=== PATIENT | female | born 1990 | race Caucasian/White ===

== ENCOUNTER 2019-12-14 06:51 | Inpatient (IN) | payer OTHER ==
[2019-12-14] VITALS (39 sets, daily range): BP systolic 62–169; BP diastolic 22–142
[~2019-12-14] VITALS: Ht 160 cm; Wt 78.0 kg
[~2019-12-14 06:51] MED LIST: DEXT5TAB15 PO
--- NOTE | 2019-12-14 06:55 | NUR ---
PT BIBRA FROM HOME C/O COUGH AND FEVER X3 DAYS. PER RA, PT FOUND DIAPHORETIC AND LAYING ON BEDROOM FLOOR ON SCENE. PT AFEBRILE ON ARRIVAL. NOTED TACHYCARDIA, MD AWARE. PT AAOX4, APPEARS LETHARGIC. RESPIRATIONS EVEN AND UNLABORED. SKIN COOL AND INTACT. NO ACUTE DISTRESS NOTED AT THIS TIME. PLACED IN GOWN AND ON CONTINUOUS BACK SIZER, WILL CONTINUE TO MONITOR.
--- NOTE | 2019-12-14 07:00 | NUR ---
PT SEEN AND EXAMINED BY .
--- NOTE | 2019-12-14 07:05 | NUR ---
Petey gerard in [facility] - 12/14/19 at 0712 by MAURO PT IV LINE ESTABLISHED, BLOOD DRAWN AND SENT TO LAB.
--- NOTE | 2019-12-14 07:10 | NUR ---
URINE SPECIMEN COLLECTED AND SENT TO LAB.
--- NOTE | 2019-12-14 07:15 | NUR ---
UNABLE TO ESTABLISHED IV LINE, AWARE.
[2019-12-14 07:57] LABS: APPEARANCE,URINE Cloudy (CLEAR); BILIRUBIN,URINE LARGE (NEGATIVE); BLOOD, URINE Negative Ery/uL (NEGATIVE); COLOR,URINE Dark (YELLOW); KETONES,URINE Trace (NEGATIVE); LEUKOCYTE ESTERASE ,URINE Negative (NEGATIVE); NITRITE, URINE Negative (NEGATIVE); PROTEIN,URINE 30 mg/dl (NEGATIVE); UGLUCOSE 100 MG/DL mg/dL (NEGATIVE); UROBILINOGEN,URINE >=8.0 EU/dL (0.2)
[2019-12-14 08:17] LABS: URINE AMORPHOUS URATE Many /HPF (None Seen)
[2019-12-14 08:18] LABS: BACTERIA,URINE Few /HPF (None Seen); SQUAMOUS EPITHELIAL CELL,UR Few /HPF (None Seen)
--- NOTE | 2019-12-14 08:58 | NUR ---
CALLED NURSING SUP FOR ISO M/S BED.
[2019-12-14 09:39] LABS: BASOPHILS # (AUTO) 0.1 /CMM (0.0-0.2); BASOPHILS % (AUTO) 0.4 % (0.0-2.0); EOSINOPHILS % (AUTO) 1.6 % (0.0-6.0); HEMATOCRIT 26 % (33-45); HEMOGLOBIN 8.7 g/dL (11.5-14.8); LYMPHOCYTES # (AUTO) 3.6 /CMM (0.8-4.8); LYMPHOCYTES % (AUTO) 11.1 % (20.0-44.0); MEAN CORPUSCULAR HGB CONC 33 g/dl (31.0-36.0); MEAN CORPUSCULAR VOLUME 82 fL (82-100); MONOCYTES # (AUTO) 2.7 /CMM (0.1-1.30); MONOCYTES % (AUTO) 8.4 % (2.0-12.0); NEUTROPHILS # (AUTO) 25.2 /CMM (1.8-8.9); NEUTROPHILS % (AUTO) 78.5 % (43.0-81.0); RED BLOOD CELL COUNT(AUTO) 3.19 MIL/uL (4.0-5.2)
[2019-12-14 09:47] LABS: PLATELET COUNT (AUTO) 9 /CMM (150-450)
[2019-12-14 09:54] LABS: ALANINE AMINOTRANSFERASE 65 U/L (12-78); ALCOHOL, BLOOD < 3 mg/dL (0-0); ALKALINE PHOSPHATASE 220 U/L (46-116); ASPARTATE AMINOTRANSFERASE 187 U/L (15-37); BILIRUBIN,TOTAL 3.8 mg/dL (0.2-1.0); CALCIUM, SERUM 6.7 mg/dL (8.5-10.1); CARBON DIOXIDE 23 mmol/L (21-32); CREATININE 1.9 mg/dL (0.6-1.3); GLUCOSE 126 mg/dL (74-106); POTASSIUM 4.2 mmol/L (3.5-5.1); TOTAL PROTEIN, SERUM 5.4 g/dL (6.4-8.2); UREA NITROGEN, BLOOD 56 mg/dL (7-18)
[2019-12-14 09:55] LABS: SALICYLATE 0.8 mg/dL (2.8-20.0)
[2019-12-14 09:56] LABS: ACETAMINOPHEN 0 ug/ml (10-30)
[2019-12-14 09:57] LABS: ALBUMIN 1.4 g/dL (3.4-5.0); CHLORIDE 77 mmol/L (98-107); SODIUM SERUM 114 mmol/L (136-145)
[2019-12-14] MEDS ORDERED: VANCOMYCIN HCL 1 GM in IV D5W 260 ML IV ONE (10:00)
[2019-12-14] MEDS ORDERED: IV NS 0.9% 500 ML IV ONE (10:00)
--- NOTE | 2019-12-14 10:22 | NUR ---
covid specimen collectd and sent to lab
--- NOTE | 2019-12-14 10:34 | NUR ---
report given to Cande MUD MIXER for rajesh
[2019-12-14 11:09] LABS: ABG BASE EXCESS -3.6 mmol/L; ABG OXYGEN SATURATION 96.6 % (92.0-98.5); ABG PCO2 20.9 mmHg (35.0-45.0); ABG PH 7.547 (7.350-7.450); ABG PO2 101.6 mmHg (75.0-100.0); AaDO2 159.6 mmHg; COHb 0.1 % (0.5-1.5); MetHb 0.5 % (0.0-1.5); SITE, ABG Right Brachial; VENT MODE, BG NASAL CANNULA
--- NOTE | 2019-12-14 11:27 | NUR ---
wheeled patient via gurney accompanied by RN and emt in no distress, RN at bedside to assume care.
[2019-12-14 11:52] LABS: BAND % (MANUAL) 20 % (0.0-5.0); EOSINOPHILS % (MANUAL) 1 % (0-4); LYMPHOCYTES % (MANUAL) 11 % (16-48); METAMYELOCYTES % 1 % (0-0); MONOCYTES % (MANUAL) 7 % (0-11.0); MYELOCYTES % 2 % (0-0); NEUTROPHILS % (MANUAL) 58 (42-76)
[2019-12-14] MEDS ORDERED: Z GUARD REMEDY 2 OZ OINT TP PRN (12:00)
[2019-12-14] MEDS ORDERED: MAG HYDROX/AL HYDROX/SIMETH 30 ML UDC PO PRN (12:00)
[2019-12-14] MEDS ORDERED: MAGNESIUM HYDROXIDE 30 ML UDC PO PRN (12:00)
[2019-12-14] MEDS ORDERED: PIPERACILLIN /TAZOBACTAM 3.375 G in IV D5W 50 ML IV SCH (12:00)
--- NOTE | 2019-12-14 12:00 | NUR ---
RN INITIAL NOTES 1130 RECEIVED PT FROM ER VIA GURNEY. PT DROWSY. OPEN EYES ON VERBAL AND TACTILE STIMULI. ON VIA NC AT 6LPM. PT TACHYCARDIC ON MONITOR. TEMP 102. PT CONNECTED TO MONITOR. NOTED LOW BP, 80S. STARK INSERTED. NO HEMATURIA NOTED. PT FOR PICC INSERTION. CALLED GENE (FATHER) OVER EPHONE, UPDATED ON PT'S CONDITION 1200 SEEN AND EXAMINED BY DR ARCE. AWARE OF CURRENT LAB VALUES AND CXR RESULT. HGB 8.7, HCT 26, PLATELET 9. NO SIGNS OF ACTIVE BLEEDING NOTED. FOR BLOOD TRANSFUSION 1 UNIT OF PLATELET. ALSO ORDERED NEOSYNEPHRINE FOR BP SUPPORT. WILL TITRATE ACCORDINGLY. ADMISSION ORDERS MADE, NOTED AND CARRIED OUT. WILL CLOSELY MONITOR.
[2019-12-14] MEDS ORDERED: FEE PK DOSING 1 MIN EA MC ONE (12:33)
[2019-12-14] MEDS ORDERED: IV NS 0.9% 1,000 ML IV PRN (13:00)
[2019-12-14] MEDS: PHENYLEPHRINE 50 MG in IV NS 0.9% 245 ML IV PRN ×2 (13:23→23:18)
[2019-12-14] MEDS: MEROPENEM 1 G in IV NS 0.9% 100 ML IV SCH (14:18)
[2019-12-14] MEDS: AZITHROMYCIN 500 MG in IV D5W 250 ML IV SCH (15:22)
[2019-12-14] MEDS: IV Sodium Chloride 3% 500 ML 500 ML IV PRN (16:02)
[2019-12-14] MEDS: ACYCLOVIR IV 500 MG in IV D5W 100 ML IV SCH (16:31)
[2019-12-14 16:47] LABS: OSMOLALITY,URINE 333 mOS/kg (340-1090)
[2019-12-14 16:56] LABS: URINE SODIUM, RANDOM 6 mmol/l (40-220)
--- NOTE | 2019-12-14 17:15 | NUR ---
RN NOTES CALLED DR ARCE REGARDING CRITICAL LAB RESULTS: LACTIC 4.9, PROCALCITONIN 49.62 AND C REACTIVE PROTEIN 2.9. PT ON 3% NS AT 30ML/HR. NO ORDER MADE. WILL CLOSELY MONITOR
--- NOTE | 2019-12-14 17:30 | NUR ---
RN NOTES DR ARCE AND DR NOGUEIRA AWARE OF ECHO RESULT. EF 35%, ENDOCARDITIS AND VEGETATION ON TRICUSPID VALVE. NO ORDER MADE. WILL CLOSELY MONITOR
--- NOTE | 2019-12-14 17:40 | NUR ---
PRELIMINARY RESULTS OF ECHO SHOWED EF 35%~, POSITIVE FOR ENDOCARDITIS AT TRICUSPID VALVE, W/ MODERATE CIRCUMFERENTIAL PERICARDIAL EFF. RN ADVISED OF INITIAL FINDINGS.
[2019-12-14 17:52] LABS: BASOPHILS # (AUTO) 0.1 /CMM (0.0-0.2); BASOPHILS % (AUTO) 0.1 % (0.0-2.0); HEMATOCRIT 23 % (33-45); HEMOGLOBIN 7.5 g/dL (11.5-14.8); LYMPHOCYTES # (AUTO) 4.4 /CMM (0.8-4.8); LYMPHOCYTES % (AUTO) 11.2 % (20.0-44.0); MEAN CORPUSCULAR HGB CONC 33 g/dl (31.0-36.0); MEAN CORPUSCULAR VOLUME 82 fL (82-100); MONOCYTES # (AUTO) 3.4 /CMM (0.1-1.30); MONOCYTES % (AUTO) 8.8 % (2.0-12.0); NEUTROPHILS # (AUTO) 30.3 /CMM (1.8-8.9); NEUTROPHILS % (AUTO) 77.9 % (43.0-81.0); RED BLOOD CELL COUNT(AUTO) 2.79 MIL/uL (4.0-5.2)
[2019-12-14] MEDS ORDERED: ZOSYN IVPB 3.375 G in IV D5W 50ml IV SCH (18:00)
[2019-12-14 18:16] LABS: BILIRUBIN,TOTAL 3.5 mg/dL (0.2-1.0); CREATININE 2.1 mg/dL (0.6-1.3); POTASSIUM 3.7 mmol/L (3.5-5.1); TOTAL PROTEIN, SERUM 4.7 g/dL (6.4-8.2)
[2019-12-14 18:31] LABS: WHITE BLOOD COUNT (AUTO) 38.9 K/uL (4.3-11.0)
[2019-12-14 18:32] LABS: PLATELET COUNT (AUTO) 7 /CMM (150-450)
--- NOTE | 2019-12-14 18:32 | NUR ---
RN CLOSING NOTES PT A/OX1, ON AND OFF CONFUSION. ON 02 VIA NC AT 6LPM. KEPT HOB ELEVATED. ABG DONE. AWAITING FOR RESULT. ON BENNIE, TITRATED ACCORDINGLY. IVF INFUSING. FC IN PLACE. KEPT COMFORTABLE. CALL LIGHT WITHIN REACH. WILL ENDORSE FOR CONTINUITY OF CARE.
[2019-12-14 18:33] LABS: ABG BASE EXCESS -2.6 mmol/L; ABG OXYGEN SATURATION 98.2 % (92.0-98.5); ABG PCO2 21.5 mmHg (35.0-45.0); ABG PH 7.558 (7.350-7.450); ABG PO2 172.3 mmHg (75.0-100.0); AaDO2 16.3 mmHg; COHb 0.3 % (0.5-1.5); MetHb 0.6 % (0.0-1.5); O2Hb 97.3 % (94.0-97.0); SITE, ABG Right Radial; VENT MODE, BG NC 4 L
[2019-12-14 18:41] LABS: BAND % (MANUAL) 17 % (0.0-5.0); LYMPHOCYTES % (MANUAL) 15 % (16-48); MONOCYTES % (MANUAL) 2 % (0-11.0); NEUTROPHILS % (MANUAL) 66 (42-76)
[2019-12-14 19:03] LABS: ALBUMIN 1.1 g/dL (3.4-5.0)
[2019-12-14 19:04] LABS: CALCIUM, SERUM 5.9 mg/dL (8.5-10.1)
--- NOTE | 2019-12-14 19:15 | NUR ---
RN OPENING NOTE RECEIVED PATIENT IN BED LETHARGIC ALTERED. ON 6L OF 02 WITH NO SIGNS OF SOB. PATIENT ON MONITOR SINUS TACHY HR AT 120 AT BEDSIDE MONITOR. FC DRAINING VIA GRAVTIY. PATIENT HAS NAOMI PICC LINE WITH BENNIE RUNNING AT 1MCG/KG/MIN, NSCL AT 30ML/HR AND TKO INFUSING. ISOLATION PRECAUTION ARE APPLIED. SAFETY PRECAUTIONS APPLIED WILL CONTINUE TO MONITOR PATIENT.
[2019-12-14] MEDS ORDERED: HEPARIN SODIUM, PORCINE 5000 UNITS/1 ML VIAL SQ SCH (21:00)
[2019-12-14] MEDS: VANCOMYCIN HCL 0.75 GM in IV D5W 250 ML IV SCH (23:17)
[2019-12-15] VITALS (75 sets, daily range): BP systolic 61–128; BP diastolic 31–89
[2019-12-15] MEDS: MEROPENEM 1 G in IV NS 0.9% 100 ML IV SCH ×2 (02:20→14:47)
[2019-12-15] MEDS ORDERED: PHENYLEPHRINE 10 MG/ML VIAL ONE (04:08)
[2019-12-15 04:23] LABS: BASOPHILS # (AUTO) 0.1 /CMM (0.0-0.2); BASOPHILS % (AUTO) 0.3 % (0.0-2.0); EOSINOPHILS % (AUTO) 2.1 % (0.0-6.0); HEMATOCRIT 22 % (33-45); HEMOGLOBIN 7.3 g/dL (11.5-14.8); LYMPHOCYTES # (AUTO) 5.6 /CMM (0.8-4.8); MEAN CORPUSCULAR HGB CONC 33 g/dl (31.0-36.0); MEAN CORPUSCULAR VOLUME 83 fL (82-100); MONOCYTES # (AUTO) 4.6 /CMM (0.1-1.30); MONOCYTES % (AUTO) 10.5 % (2.0-12.0); NEUTROPHILS # (AUTO) 32.2 /CMM (1.8-8.9); NEUTROPHILS % (AUTO) 74.1 % (43.0-81.0); RED BLOOD CELL COUNT(AUTO) 2.69 MIL/uL (4.0-5.2)
[2019-12-15 04:41] LABS: CHOLESTEROL 60 mg/dL (<200); LDL 23 mg/dL (0-99); THYROID STIMULATING HORMONE 1.671 uIU/mL (0.358-3.74); TRIGLYCERIDES 200 mg/dL (30-150); URIC ACID 11.6 mg/dL (2.6-7.2)
[2019-12-15 04:44] LABS: ALANINE AMINOTRANSFERASE 64 U/L (12-78); ALKALINE PHOSPHATASE 187 U/L (46-116); ASPARTATE AMINOTRANSFERASE 243 U/L (15-37); BILIRUBIN,DIRECT 2.4 mg/dL (0.0-0.2); BILIRUBIN,TOTAL 3.2 mg/dL (0.2-1.0); CALCIUM, SERUM 6.1 mg/dL (8.5-10.1); CARBON DIOXIDE 24 mmol/L (21-32); CHLORIDE 84 mmol/L (98-107); CREATININE 1.7 mg/dL (0.6-1.3); GLUCOSE 133 mg/dL (74-106); MAGNESIUM 2.1 mg/dL (1.8-2.4); PHOSPHORUS 5.1 mg/dL (2.5-4.9); POTASSIUM 3.6 mmol/L (3.5-5.1); TOTAL PROTEIN, SERUM 4.9 g/dL (6.4-8.2); UREA NITROGEN, BLOOD 65 mg/dL (7-18)
[2019-12-15] MEDS: PHENYLEPHRINE 50 MG in IV NS 0.9% 245 ML IV PRN ×2 (04:50→08:31)
[2019-12-15 05:02] LABS: PLATELET COUNT (AUTO) 15 /CMM (150-450); WHITE BLOOD COUNT (AUTO) 43.4 K/uL (4.3-11.0)
[2019-12-15 05:04] LABS: LYMPHOCYTES % (MANUAL) 11 % (16-48); MONOCYTES % (MANUAL) 7 % (0-11.0); NEUTROPHILS % (MANUAL) 82 (42-76)
[2019-12-15 05:05] LABS: ALBUMIN 1.3 g/dL (3.4-5.0); HDL CHOLESTEROL < 10 mg/dL (40-60); SODIUM SERUM 119 mmol/L (136-145)
[2019-12-15] MEDS: ACYCLOVIR IV 500 MG in IV D5W 100 ML IV SCH ×2 (06:02→16:16)
--- NOTE | 2019-12-15 08:00 | NUR ---
HIGHWAY PAINTER HELPER RECEIVED PT IN BED AWAKE CONFUSED AND DROWSY, PT ON 5L NC VS STABLE ON BENNIE SETTINGS NOTICED, PICC LINE PATENT DRESSING INTACT R JUGULAR IV LINE PRESENT, STARK PRESENT JAZZY URINE PRESENT, NOTICED BILATERAL HEAL REDNESS L IS NON BLANCHABLE, NOTICED SACRAL AND MID LOWER BACK DTI NOTICED NON BLANCHABLE REDNESS AND BLACK DECOLORIZATION OFF LOADED ALL EXTREMITIES ON PILLOWS TURN AND [id number] AND KEEP PT CLEAN AND DRY, PT CONSUMED 25% BREAKFAST TEACHINGS DONE SAFETY MEASURES PLACED WILL CONTINUE TO MONITOR. SC DR. NOGUEIRA HOLD LAST BAG OF PATELLATE TRANSFUSION PLATELET IS >10 ORDERS CARRIED WILL CONTINUE TO MONITOR.
[2019-12-15] MEDS: PANTOPRAZOLE 40 MG TABLET.DR PO SCH (08:30)
[2019-12-15] MEDS: IV Sodium Chloride 3% 500 ML 500 ML IV PRN (08:31)
[2019-12-15] MEDS ORDERED: PHENYLEPHRINE 100 MG in IV NS 0.9% 240 ML IV PRN (10:30)
[2019-12-15] MEDS: VANCOMYCIN HCL 0.75 GM in IV D5W 250 ML IV SCH ×2 (11:10→23:38)
[2019-12-15] MEDS: AZITHROMYCIN 500 MG in IV D5W 250 ML IV SCH (14:06)
--- NOTE | 2019-12-15 19:19 | NUR ---
RN CLOSING NOTE: PATIENT REMAINS IN BED. NO ACUTE DISTRESS NOTED. NO SIGNS OF RESPIRATORY DISTRESS NOTED. CONTACT ISOLATION FOR PENDING COVID/MRSA OF [place]. SAFETY MEASURES IMPLEMENTED, BED IN LOWEST POSITION, LOCKED, SIDE RAILS UP, CALL LIGHT WITHIN REACH. ENDORSED TO OLY RAPHAEL FOR CONTINUITY OF CARE.
--- NOTE | 2019-12-15 20:03 | NUR ---
HOME FURNISHINGS SALES REPRESENTATIVE. INITIAL ASSESSMENT. RECEIVED THE PT REST ON THE BED. AWAKE, ALERT. ,LIFT MANAGER SHOWING S TACH. RATE IS 12. OXYGEN 2L VIA NASAL CANNULA. SAT 98%. NO ACUTE DISTRESS NOTED. IV RT UPPER ARM PICC LINE. BENNIE 1MCG/KG/MIN.NS 3%. 30ML/H. HOB ELEVATED. FC PATENT.URINE DRAINING. WILL CONTINUE TO MONITOR VITALS.
[2019-12-15] MEDS: MUPIROCIN OINT 2% 22 GM TUBE SCH (21:29)
[2019-12-15] MEDS ORDERED: IV NS 0.9% 250 ML IV PRN (21:30)
--- NOTE | 2019-12-15 23:40 | NUR ---
GUITAR TEACHER. VANCOMYCIN TROUGH LEVEL IS 8L NOTIFIED PARTS MANAGER PHARMACY. SHE SAID GIVE SAME DOSE.
[2019-12-16] VITALS (91 sets, daily range): BP systolic 81–127; BP diastolic 44–74
[2019-12-16] MEDS: IV Sodium Chloride 3% 500 ML 500 ML IV PRN (00:26)
[2019-12-16] MEDS: MEROPENEM 1 G in IV NS 0.9% 100 ML IV SCH ×3 (02:50→20:47)
[2019-12-16 04:39] LABS: BASOPHILS # (AUTO) 0.1 /CMM (0.0-0.2); BASOPHILS % (AUTO) 0.2 % (0.0-2.0); EOSINOPHILS % (AUTO) 0.2 % (0.0-6.0); LYMPHOCYTES # (AUTO) 3.9 /CMM (0.8-4.8); LYMPHOCYTES % (AUTO) 12.4 % (20.0-44.0); MEAN CORPUSCULAR HGB CONC 33 g/dl (31.0-36.0); MEAN CORPUSCULAR VOLUME 84 fL (82-100); MONOCYTES # (AUTO) 3.2 /CMM (0.1-1.30); MONOCYTES % (AUTO) 10.3 % (2.0-12.0); NEUTROPHILS % (AUTO) 76.9 % (43.0-81.0); RED BLOOD CELL COUNT(AUTO) 2.42 MIL/uL (4.0-5.2)
[2019-12-16 04:44] LABS: CALCIUM, SERUM 6.8 mg/dL (8.5-10.1); CREATININE 0.9 mg/dL (0.6-1.3); POTASSIUM 3.6 mmol/L (3.5-5.1)
[2019-12-16] MEDS: ACYCLOVIR IV 500 MG in IV D5W 100 ML IV SCH (04:48)
--- NOTE | 2019-12-16 05:00 | NUR ---
CLIENT SERVICE ASSOCIATE. DURING SHIFT NO ANY CHANGES, PT SLEPT ON AND OFF. REMAINING SAME OXYGEN ON. SAT 95%, BIOINFORMATICS ENGINEER SHOWING S TACH. TEMPERATURE IS 99. IV RT UPPER ARM PICC LINE IV BENNIE 1.5MCG/KG/MIN. IVF 3%NS 30ML/H. FC PATENT. URINE DRAINING. MYRNA LOWER EXTREMITY OFF LOADED. WILL CONTINUE TO MONITOR VITALS.
[2019-12-16 05:20] LABS: HEMATOCRIT 20 % (33-45)
[2019-12-16 05:22] LABS: HEMOGLOBIN 6.7 g/dL (11.5-14.8); PLATELET COUNT (AUTO) 7 /CMM (150-450); WHITE BLOOD COUNT (AUTO) 31.2 K/uL (4.3-11.0)
[2019-12-16 05:24] LABS: MONOCYTES % (MANUAL) 7 % (0-11.0)
[2019-12-16 05:26] LABS: BAND % (MANUAL) 6 % (0.0-5.0); LYMPHOCYTES % (MANUAL) 12 % (16-48); NEUTROPHILS % (MANUAL) 75 (42-76)
--- NOTE | 2019-12-16 06:05 | NUR ---
BEN DAY ARTIST. LAB CALLED FOR CRITICAL RESULT PLATELETS #7, H&H 6.7.NOTIFIED PRISCILA PETTIT. NEW ORDER RECEIVED.
--- NOTE | 2019-12-16 07:19 | NUR ---
CELL PREPARER. PLATELETS STARTED. REPORT GIVEN TO MAMI ALDRIDGE.
[2019-12-16] MEDS: PANTOPRAZOLE 40 MG TABLET.DR PO SCH (08:56)
[2019-12-16] MEDS: MUPIROCIN OINT 2% 22 GM TUBE SCH ×2 (08:58→21:37)
[2019-12-16] MEDS: VANCOMYCIN 1 GM in IV D5W 250 ML IV SCH ×2 (10:50→19:45)
[2019-12-16] MEDS ORDERED: ACYCLOVIR IV 500 MG in IV D5W 100 ML IV SCH (13:00)
[2019-12-16] MEDS: AZITHROMYCIN 500 MG in IV D5W 250 ML IV SCH (18:43)
--- NOTE | 2019-12-16 19:45 | NUR ---
ICU/STEREOTYPE MOLDER REPORT RECEIVED FROM THE TO DAY NURSE. SEE FLOWSHEET FOR ASSESSMENT, ALONG WITH SKIN ASSESSMENTS AND THE INTERVENTIONS TO THESE. PT IS ALERT TO SELF, SOME SLOW RESPONDS TO QUESTIONS. PT IS ON 5 LITERS VIA N/C WITH SATURATION AT 100%. PT IS 1000 ML FLUID RESTRICTION. PT HAS SACRAL WOUND. PT ALSO HAS SOME EDEMA TO LOWER EXTREMITY SWELLING WITH BRUISING. PT'S CALL LIGHT WITHIN REACH. PT TURNED AND REPOSITIONED FOR COMFORT AND CARE.
[2019-12-16] MEDS: IV D5/ 0.9% NACL 1,000 ML IV PRN (21:30)
--- NOTE | 2019-12-16 22:30 | NUR ---
ICU/HEAVY DUTY PRESS OPERATOR PT WAS GIVEN PM CARE. PT TOLERATED THIS WELL WITH SATURATION AT 100% ON 5 LITERS. PT REFUSED TO BE TURNED AND REPOSITIONED. WILL CONTINUE TO MONITOR THIS PT. NO ACUTE DISTRESS SEEN AT THIS TIME.
[2019-12-16] MEDS ORDERED: PHENYLEPHRINE 10 MG/ML VIAL ONE (23:07)
[2019-12-16] MEDS: PHENYLEPHRINE 100 MG in IV NS 0.9% 240 ML IV PRN (23:27)
[2019-12-17] VITALS (93 sets, daily range): BP systolic 82–160; BP diastolic 33–120
--- NOTE | 2019-12-17 00:10 | NUR ---
ICU/GUM MACHINE FILLER PT APPEARS TO BE RESTING COMFORTABLE, NO ACUTE DISTRESS SEEN AT THIS TIME. WILL CONTINUE TO MONITOR THIS PT.
[2019-12-17] MEDS: VANCOMYCIN 1 GM in IV D5W 250 ML IV SCH ×3 (02:25→17:34)
--- NOTE | 2019-12-17 02:30 | NUR ---
ICU/FELLER MACHINE OPERATOR PT WAS GIVEN AM CARE. PT TOLERATED THIS SO-SO WITH SATURATION AT 95-98%. PT WAS THEN TURNED AND REPOSITIONED FOR COMFORT AND CARE. WILL CONTINUE TO MONITOR THIS PT. NO ACUTE DISTRESS SEEN AT THIS TIME.NOTICED THAT PT'S LOWER EXTREMITY WAS VERY SWOLLEN WITH SOME BRUISING, NOTIFIED CHARGE NURSE. PT SHOULD HAVE LOWER EXTREMITY DOPPLER TO R/O DVT.
--- NOTE | 2019-12-17 04:10 | NUR ---
ICU/BOILER MECHANIC AM LABS WERE DRAWN
[2019-12-17] MEDS: MEROPENEM 1 G in IV NS 0.9% 100 ML IV SCH ×2 (04:20→10:56)
[2019-12-17 05:09] LABS: CALCIUM, SERUM 6.6 mg/dL (8.5-10.1); CREATININE 0.6 mg/dL (0.6-1.3); POTASSIUM 3.4 mmol/L (3.5-5.1)
[2019-12-17 05:18] LABS: BASOPHILS % (AUTO) 0.1 % (0.0-2.0); EOSINOPHILS % (AUTO) 0.2 % (0.0-6.0); LYMPHOCYTES # (AUTO) 4.4 /CMM (0.8-4.8); LYMPHOCYTES % (AUTO) 15.6 % (20.0-44.0); MEAN CORPUSCULAR HGB CONC 33 g/dl (31.0-36.0); MEAN CORPUSCULAR VOLUME 84 fL (82-100); MONOCYTES # (AUTO) 2.2 /CMM (0.1-1.30); MONOCYTES % (AUTO) 7.6 % (2.0-12.0); NEUTROPHILS # (AUTO) 21.6 /CMM (1.8-8.9); NEUTROPHILS % (AUTO) 76.5 % (43.0-81.0); WHITE BLOOD COUNT (AUTO) 28.2 K/uL (4.3-11.0)
[2019-12-17 05:40] LABS: HEMOGLOBIN 6.7 g/dL (11.5-14.8)
[2019-12-17 05:41] LABS: HEMATOCRIT 20 % (33-45); PLATELET COUNT (AUTO) 8 /CMM (150-450)
--- NOTE | 2019-12-17 05:50 | NUR ---
ICU/NURSING HOME ADMISSIONS DIRECTOR CRITICAL LAB VALUES OF H&H 6.7/20 AND PLAT 8. CALLED
[2019-12-17 05:51] LABS: BAND % (MANUAL) 2 % (0.0-5.0); LYMPHOCYTES % (MANUAL) 10 % (16-48); NEUTROPHILS % (MANUAL) 84 (42-76)
[2019-12-17 05:52] LABS: MONOCYTES % (MANUAL) 4 % (0-11.0)
--- NOTE | 2019-12-17 06:30 | NUR ---
ICU/TINNER HELPER CRITICAL LABS WERE ADDRESSED WITH H&H 6.03/28 1 UNIT PRBC AND PLAT 8 WITH 1 PLAT ORDERED.
[2019-12-17] MEDS: PANTOPRAZOLE 40 MG TABLET.DR PO SCH (08:59)
[2019-12-17] MEDS: MUPIROCIN OINT 2% 22 GM TUBE SCH ×2 (09:00→20:18)
[2019-12-17] MEDS: ACETAMINOPHEN 325 MG TABLET PO PRN ×2 (09:16→20:54)
[2019-12-17] MEDS ORDERED: POTASSIUM CHLORIDE 20 MEQ TAB.PRT.SR PO SCH (09:30)
[2019-12-17] MEDS: IV D5/ 0.9% NACL 1,000 ML IV PRN (16:00)
[2019-12-17] MEDS: PHENYLEPHRINE 100 MG in IV NS 0.9% 240 ML IV PRN (17:34)
--- NOTE | 2019-12-17 19:30 | NUR ---
CHIEF RADIATION THERAPIST NOTES RECEIVED PATIENT AOX3. BREATHING NORMAL NO SOB NOTED. RESPIRATION EVEN NON LABORED. NAOMI MIDLINE WITH TRIPLE LUMEN PATENT AND FLUSHING WELL. ON TELE MONITOR READING SR/ST. F/C INTACT DRAINING WELL VIA GRAVITY URINE YELLOW. ABD SOFT AND NON DISTENDED. SKIN WARM AND DRY TO TOUCH. ALL SAFETY MEASURES IN PLACE, SIDE RAILS UPX2. CALL LIGHT WITHIN REACH. WILL CONT TO MONITOR FOR VERONICA.
--- NOTE | 2019-12-17 19:36 | NUR ---
GUN SEALING MACHINE OPERATOR NOTE BLOOD TRANSFUSION WAS DONE PATIENT IS IN STABLE CONDITION, NO S/S OF REACTION NOTED. 200ML INFUSED. ALL SAFETY MEASURES IN PLACE, CALL LIGHT WITHIN REACH. WILL CONT TO MONITOR.
--- NOTE | 2019-12-17 20:54 | NUR ---
BILLING SERVICES MANAGER NOTE PRN TYLENOL WAS GIVEN FOR TEMP-99.0. WILL MONITOR FOR EFFECTIVENESS.
--- NOTE | 2019-12-17 21:54 | NUR ---
CURTAIN FRAMER NOTE TYLENOL WAS EFFECTIVE TEMP NOTED-98.7.
[2019-12-18] VITALS (88 sets, daily range): BP systolic 64–140; BP diastolic 43–81
[2019-12-18] MEDS ORDERED: VANCOMYCIN 1 GM VIAL ONE (01:05)
[2019-12-18] MEDS: VANCOMYCIN 1 GM in IV D5W 250 ML IV SCH ×3 (01:09→17:48)
[2019-12-18] MEDS ORDERED: ALBUTEROL FS 2.5 MG/0.5 ML VIAL.NEB NEB PRN (02:30)
--- NOTE | 2019-12-18 02:30 | NUR ---
HOME ECONOMIST NOTE PATIENT REPORTED SOB AND HISTORY OF ASTHMA. CALLED [facility] TALKED TO SHAY FRANCOIS. NEW ORDER FOR ALBUTEROL 2.5MG VIA NEB Q6H PRN, ORDER INPUT AND NOTED AND CARRIED OUT. RT AWARE.
[2019-12-18 04:53] LABS: BASOPHILS # (AUTO) 0.1 /CMM (0.0-0.2); BASOPHILS % (AUTO) 0.2 % (0.0-2.0); EOSINOPHILS % (AUTO) 0.2 % (0.0-6.0); HEMATOCRIT 24 % (33-45); HEMOGLOBIN 7.7 g/dL (11.5-14.8); LYMPHOCYTES # (AUTO) 3.9 /CMM (0.8-4.8); LYMPHOCYTES % (AUTO) 13.5 % (20.0-44.0); MEAN CORPUSCULAR HGB CONC 33 g/dl (31.0-36.0); MEAN CORPUSCULAR VOLUME 87 fL (82-100); MONOCYTES # (AUTO) 0.7 /CMM (0.1-1.30); MONOCYTES % (AUTO) 2.4 % (2.0-12.0); NEUTROPHILS % (AUTO) 83.7 % (43.0-81.0); RED BLOOD CELL COUNT(AUTO) 2.73 MIL/uL (4.0-5.2); WHITE BLOOD COUNT (AUTO) 28.7 K/uL (4.3-11.0)
[2019-12-18 04:59] LABS: CALCIUM, SERUM 6.7 mg/dL (8.5-10.1); CREATININE 0.6 mg/dL (0.6-1.3); POTASSIUM 3.9 mmol/L (3.5-5.1)
[2019-12-18 05:58] LABS: PLATELET COUNT (AUTO) 8 /CMM (150-450)
[2019-12-18 06:08] LABS: LYMPHOCYTES % (MANUAL) 15 % (16-48); MONOCYTES % (MANUAL) 4 % (0-11.0); NEUTROPHILS % (MANUAL) 81 (42-76)
--- NOTE | 2019-12-18 06:10 | NUR ---
WATCH DIAL STONER NOTE RECEIVED CALL FROM LAB TALKED TO SPENCER REGARDING PLATELET COUNT 8, READ BACK THE RESULTS TO VERIFY.
--- NOTE | 2019-12-18 06:11 | NUR ---
SPRING COILING MACHINE SETTER NOTE PAGE EP[facility] AWAITING FOR CALL BACK.
--- NOTE | 2019-12-18 06:20 | NUR ---
INFANT ROOM TEACHER NOTE RECEIVED CALL TALKED TO PRISCILA REGARDING PLATELET RESULT WHICH WAS 8, NEW ORDER TO GIVE ONE UNIT OF PLATELET READ BACK THE ORDER FOR VERIFICATION, ORDER ENTERED NOTED AND CARRIED OUT. PATIENT AWARE. WILL CONT TO MONITOR.
--- NOTE | 2019-12-18 06:57 | NUR ---
LAST IRONER NOTES PATIENT RESTING COMFORTABLY NO SOB NOTED. BREATHING NORMAL, RESPIRATION EVEN NON LABORED. ALL DUE MEDICATIONS WERE GIVEN TOLERATED WELL . ON TELE MONITOR READING SR/ST. F/C INTACT DARNING WELL VIA GRAVITY URINE JAZZY. ABD SOFT AND NON DISTENDED. SKIN WARM AND DRY TO TOUCH. ALL SAFETY MEASURES IN PLACE, SIDE RAILS UPX2. CALL LIGHT WITHIN REACH. WILL ENDORSE TO DAY SHIFT NURSE FOR VERONICA.
[2019-12-18] MEDS: IV D5/ 0.9% NACL 1,000 ML IV PRN (09:10)
[2019-12-18] MEDS: PHENYLEPHRINE 100 MG in IV NS 0.9% 240 ML IV PRN (09:10)
[2019-12-18] MEDS: PANTOPRAZOLE 40 MG TABLET.DR PO SCH (09:30)
[2019-12-18] MEDS: MUPIROCIN OINT 2% 22 GM TUBE SCH ×2 (09:30→21:17)
--- NOTE | 2019-12-18 09:58 | NUR ---
WOUND CARE CONSULT: PT PRESENTS WITH SACRAL INTACT DEEP TISSUE INJURY WITH DISCOLORATION TO BUTTOCKS, PRESENT ON ADMISSION. RECOMMENDATIONS MADE FOR SKIN PROTECTION AND WOUND CARE. DISCUSSED WITH NURSING STAFF. WILL SEE PRN. MCDANIEL IN AGREEMENT WITH PLAN OF CARE. CURRENT ISHA SCORE 15. Addendum: 12/18/19 at 0959 by FRED THOMPSON WNDNU Amended: Links added.
[2019-12-18] MEDS: ACETAMINOPHEN 325 MG TABLET PO PRN (12:13)
[2019-12-18] MEDS: RIFAMPIN 300 MG CAPSULE PO SCH ×2 (15:26→21:08)
[2019-12-18] MEDS ORDERED: ACETAMINOPHEN 325 MG TABLET PO ONE (18:00)
[2019-12-18] MEDS ORDERED: diphenhydrAMINE HCL 50 MG/ML VIAL IV ONE (18:00)
[2019-12-18] MEDS ORDERED: PANTOPRAZOLE 40 MG VIAL IV SCH (18:00)
--- NOTE | 2019-12-18 20:00 | NUR ---
ICU NURSES NOTES Received pt in bed awake alert and verbally responsive able to make needs known , on st on the the monitor sating 98% no sb no distress noted .v/s stable afebrile on right upper arm piccline tripple lumen intact and patent with reg drip 1.1 mcg /kg /min as ordered ivf of d5ns at 75cc/hr infusing well .with folley cath intact and patent with chaparrita urine color ,all needs attended , pts is npo as ordered pts verbalising understanding , all due meds given as ordered , turned and reposition .will continue to monitor pts.
[2019-12-18] MEDS: FOLIC ACID 1 MG TABLET PO SCH (21:08)
[2019-12-18] MEDS: methylPREDNISolone SOD SUCC 125 MG/2ML VIAL IV SCH (21:08)
--- NOTE | 2019-12-18 22:57 | NUR ---
icu nurses notes ist bag of ffp given as ordered no ase noted.
[2019-12-18] MEDS ORDERED: diphenhydrAMINE HCL 50 MG/ML VIAL ONE (23:11)
[2019-12-19] VITALS (76 sets, daily range): BP systolic 68–134; BP diastolic 38–93
--- NOTE | 2019-12-19 | NUR ---
agricultural economics teacher notes ist bag of ffp completed ,no ase noted. will continue to monitor pts
[2019-12-19] MEDS: IV D5/ 0.9% NACL 1,000 ML IV PRN (01:33)
[2019-12-19] MEDS: VANCOMYCIN 1 GM in IV D5W 250 ML IV SCH ×2 (01:43→09:00)
--- NOTE | 2019-12-19 02:46 | NUR ---
agricultural plow operator notes 2nd bag of ffp given as ordered no ase noted.
--- NOTE | 2019-12-19 03:26 | NUR ---
agricultural labor camp manager notes 2nd bag of ffp completed at 0326 with no ase noted.
[2019-12-19] MEDS ORDERED: PHENYLEPHRINE 10 MG/ML VIAL ONE (04:12)
[2019-12-19] MEDS: PHENYLEPHRINE 100 MG in IV NS 0.9% 240 ML IV PRN (04:26)
--- NOTE | 2019-12-19 05:22 | NUR ---
horticultural manager notes pts remain npo status , no sob no distress noted v/s stable afebrile continue with reg drip at 1.1 as ordered will endorse to rn day shift for continuity of care , pts on f/c intact and patent draining with tea color urine pts for ct chest with out contrast today.
[2019-12-19] MEDS: RIFAMPIN 300 MG CAPSULE PO SCH ×3 (05:41→21:08)
[2019-12-19 06:01] LABS: BASOPHILS % (AUTO) 0.1 % (0.0-2.0); LYMPHOCYTES # (AUTO) 1.7 /CMM (0.8-4.8); LYMPHOCYTES % (AUTO) 7.8 % (20.0-44.0); MEAN CORPUSCULAR HGB CONC 33 g/dl (31.0-36.0); MEAN CORPUSCULAR VOLUME 88 fL (82-100); MONOCYTES # (AUTO) 0.6 /CMM (0.1-1.30); MONOCYTES % (AUTO) 2.5 % (2.0-12.0); NEUTROPHILS # (AUTO) 20.1 /CMM (1.8-8.9); NEUTROPHILS % (AUTO) 89.6 % (43.0-81.0); RED BLOOD CELL COUNT(AUTO) 2.11 MIL/uL (4.0-5.2); WHITE BLOOD COUNT (AUTO) 22.4 K/uL (4.3-11.0)
[2019-12-19 06:02] LABS: CALCIUM, SERUM 7.4 mg/dL (8.5-10.1); CREATININE 0.6 mg/dL (0.6-1.3); POTASSIUM 3.8 mmol/L (3.5-5.1)
[2019-12-19 06:23] LABS: FERRITIN 704 ng/mL (8-388)
[2019-12-19 06:31] LABS: HEMATOCRIT 19 % (33-45); HEMOGLOBIN 6.2 g/dL (11.5-14.8); PLATELET COUNT (AUTO) 17 /CMM (150-450)
--- NOTE | 2019-12-19 07:00 | NUR ---
DIRECTOR TELEVISION NEWS NOTES SPOKE TO DR HARPER RELAYED CRITICAL LABS HGB 6.2 HCT 19 WITH ORDER TO TRANSFUSED 2 UNITS OF PRBC , ENDORSE TO RN DAY SHIFT MAMI FOR NEW ORDER OF 2 UNITS PRBC TO BE GIVEN.
[2019-12-19] MEDS ORDERED: PANTOPRAZOLE 40 MG VIAL IV SCH (09:00)
[2019-12-19] MEDS: HYDROCORTISONE SOD SUCCINATE 100 MG/2 ML VIAL IV SCH ×3 (09:45→18:14)
[2019-12-19] MEDS: methylPREDNISolone SOD SUCC 125 MG/2ML VIAL IV SCH (09:45)
[2019-12-19] MEDS: PANTOPRAZOLE 40 MG TABLET.DR PO SCH (09:46)
[2019-12-19] MEDS: FOLIC ACID 1 MG TABLET PO SCH (09:46)
[2019-12-19] MEDS: MUPIROCIN OINT 2% 22 GM TUBE SCH ×2 (09:46→21:09)
--- NOTE | 2019-12-19 11:22 | NUR ---
PER PHONE CONVERSATION WITH DR. WAITE ONLY GIVE 1 UNIT OF PRBC'S TODAY AND NO PLATELETS.
[2019-12-19 11:27] LABS: BAND % (MANUAL) 4 % (0.0-5.0); LYMPHOCYTES % (MANUAL) 6 % (16-48); NEUTROPHILS % (MANUAL) 86 (42-76)
[2019-12-19 11:28] LABS: METAMYELOCYTES % 3 % (0-0); MONOCYTES % (MANUAL) 0 % (0-11.0); MYELOCYTES % 1 % (0-0)
[2019-12-19 12:12] LABS: IRON, SERUM 23 ug/dl (50-175); TOTAL IRON BINDING CAPACITY 211 ug/dl (250-450)
--- NOTE | 2019-12-19 20:00 | NUR ---
BRAIN SURGEON NOTES Received patient A/OX3.VSS.Respiration even and unlabored.With O2 5L NC SPO2 94%.-100%. Patient taking off O2 on and off.Teaching reinforce to keep O2 on at all times.SR per monitor. On Neosynephrine gtt 0.5 mcg/kg/min and will titrate accordingly to keep MAP >60,or SBP >90 Infusing via NAOMI PICC Line.Site intact.Good po intake.Patient reminded that she is on fluid restriction 1000ml/day.Verbalized understanding.FC to gravity drainage draining orange colored urine.Denies pain.Contact precaution maintained.Continue monitoring.Call light at bedside.
[2019-12-19] MEDS ORDERED: LORAZEPAM 0.5 MG TABLET PO ONE (22:30)
[2019-12-20] VITALS (42 sets, daily range): BP systolic 74–136; BP diastolic 16–86
--- NOTE | 2019-12-20 | NUR ---
Patient awake with loose BM.Perineal hygiene and bed bath rendered.Complete liinens changed.Turned and repositioned.Patient remains non compliant and argumentative using offensive language.Pulling out O2,PULSE OX and nurse monitoring leads off despite multiple reminders/education.Safety precaution observed.Call light at bedside.
[2019-12-20] MEDS: HYDROCORTISONE SOD SUCCINATE 100 MG/2 ML VIAL IV SCH ×3 (02:19→17:13)
--- NOTE | 2019-12-20 04:00 | NUR ---
Patient awake playing with her diaper with BM and throwing wash cloth to the floor with BM.Patient educated with infection control but does not want to listen.Hygienic measures done.Diaper changed. Repositioned to comfort.Tried to apply soft wrist restraints but refused.Remains non compliant to treatment.Charge Nurse ED notified.
[2019-12-20 04:27] LABS: BASOPHILS % (AUTO) 0.1 % (0.0-2.0); HEMATOCRIT 23 % (33-45); HEMOGLOBIN 7.9 g/dL (11.5-14.8); LYMPHOCYTES # (AUTO) 1.9 /CMM (0.8-4.8); LYMPHOCYTES % (AUTO) 6.8 % (20.0-44.0); MEAN CORPUSCULAR HGB CONC 34 g/dl (31.0-36.0); MEAN CORPUSCULAR VOLUME 89 fL (82-100); MONOCYTES # (AUTO) 0.8 /CMM (0.1-1.30); MONOCYTES % (AUTO) 2.8 % (2.0-12.0); NEUTROPHILS # (AUTO) 24.4 /CMM (1.8-8.9); NEUTROPHILS % (AUTO) 90.3 % (43.0-81.0); RED BLOOD CELL COUNT(AUTO) 2.62 MIL/uL (4.0-5.2); WHITE BLOOD COUNT (AUTO) 27.1 K/uL (4.3-11.0)
[2019-12-20 04:36] LABS: CALCIUM, SERUM 7.9 mg/dL (8.5-10.1); CREATININE 0.6 mg/dL (0.6-1.3); POTASSIUM 3.2 mmol/L (3.5-5.1)
[2019-12-20 04:49] LABS: PLATELET COUNT (AUTO) 14 /CMM (150-450)
[2019-12-20] MEDS: RIFAMPIN 300 MG CAPSULE PO SCH ×3 (04:51→20:29)
[2019-12-20 05:31] LABS: BAND % (MANUAL) 6 % (0.0-5.0); LYMPHOCYTES % (MANUAL) 3 % (16-48); MONOCYTES % (MANUAL) 3 % (0-11.0); NEUTROPHILS % (MANUAL) 88 (42-76)
--- NOTE | 2019-12-20 07:30 | NUR ---
NATUROPATHIC ONCOLOGY PROVIDER INITIAL NOTE RECEIVED PATIENT AWAKE ALERT AND ORIENTED, PATIENT STATES SHE FEELS TIRED. DENIES PAIN OR DISCOMFORT. DENIES SOB. PATIENT REMOVED MONITORING DEVICES, EDUCATED PATIENT FOR THE NEED FOR MONITORING. PATIENT VERBALIZED UNDERSTANDING. MONITORING DEVICES PLACED BACK ON. NO DISTRESS NOTED. ON TELE MONITOR SINUS TACH. F/C PATENT AND DRAINING BY GRAVITY. NAOMI PICC LINE PATENT AND INTACT, PRESSORS TURNED OFF. SIDE RAILS UP AND LOCKED. BED KEPT AT LOWEST POSITION. CALL LIGHT KEPT WITHIN EASY REACH. WILL CONTINUE TO MONITOR.
[2019-12-20] MEDS ORDERED: VANCOMYCIN 1 GM in IV D5W 250 ML IV SCH (09:00)
[2019-12-20] MEDS ORDERED: POTASSIUM CL. PREMIX PERIPHER. 50 ML IV SCH (09:30)
--- NOTE | 2019-12-20 09:36 | NUR ---
OPENER TENDER NOTE CLARIFIED WITH DR HOOD POTASSIUM ORDERS, PER DR HOOD DC IV POTASSIUM ORDERS PATIENT CAN SWALLOW
[2019-12-20] MEDS: VANCOMYCIN 1 GM in IV D5W 250 ML IV SCH ×2 (09:52→20:29)
[2019-12-20] MEDS: methylPREDNISolone SOD SUCC 125 MG/2ML VIAL IV SCH (09:52)
[2019-12-20] MEDS: PANTOPRAZOLE 40 MG TABLET.DR PO SCH (09:52)
[2019-12-20] MEDS: FOLIC ACID 1 MG TABLET PO SCH (09:52)
[2019-12-20] MEDS: MUPIROCIN OINT 2% 22 GM TUBE SCH ×2 (09:52→20:50)
[2019-12-20] MEDS: POTASSIUM CHLORIDE 20 MEQ TAB.PRT.SR PO SCH ×3 (09:52→12:43)
--- NOTE | 2019-12-20 11:00 | NUR ---
DURABLE MEDICAL EQUIPMENT REPAIRER NOTE RELAYED TO DR HARPER BLOOD CULTURE RESULTS, NNO
--- NOTE | 2019-12-20 11:25 | NUR ---
FOREIGN LANGUAGE PROFESSOR NOTE REPORT GIVEN TO 3W NURSE NATALIYA. PATIENT TO GO TO ROOM 321-2
--- NOTE | 2019-12-20 11:50 | NUR ---
EXPERIMENTAL DISPLAY BUILDER NOTE TRANSFERRED CARE TO SERGIO ALDRIDGE
--- NOTE | 2019-12-20 12:11 | NUR ---
POSTAL SUPERVISOR CLOSING NOTE PATIENT TRANSFERRED VIA ACLS PROTOCOL, PATIENT IN STABLE CONDITION. TRANSFERRED TO [facility] VIA BED
--- NOTE | 2019-12-20 12:12 | NUR ---
ATTENUATOR NOTE RECEIVED REPORT FROM SCOTTY RN. PATIENT ARRIVED TO UNIT BY BED FROM ICU. PATIENT IN NO ACUTE DISTRESS. NO SOB NOTED. PATIENT BREATHING IS EVEN AND UNLABORED. PATIENT ON CARDIAC MONITORING READING SINUS TACHYCARDIA HR 111. PATIENT STATES NO PAIN AT THIS TIME. PATIENT BED ALARM IS ON. EDUCATED IMPORTANCE OF FLUID RESTRICTION OF 1L. PATIENT PATIENT INSTRUCTED TO USE CALL LIGHT FOR ASSISTANCE. EDUCATED IMPORTANCE FOR PATIENT NOT TO PLAY OR REMOVE PICC LINE. PATIENT VERBALIZED UNDERSTANDING. PATIENT BED IS LOCKED AND IN LOWEST POSITION. CALL LIGHT WITHIN REACH. WILL CONTINUE TO MONITOR.
[2019-12-20] MEDS: SOD FERRIC GLUC 125 MG in IV NS 0.9% 100 ML IV SCH (16:14)
--- NOTE | 2019-12-20 18:34 | NUR ---
SENIOR CLINICAL CONSULTANT CLOSING NOTE PATIENT IN BED RESTING COMFORTABLY. PATIENT IN NO ACUTE DISTRESS. NO SOB NOTED. PATIENT BREATHING IS EVEN AND UNLABORED. PATIENT ON TELE MONITORING READING SINUS TACHYCARDIA HR 107. PATIENT KEPT CLEAN, DRY AND COMFORTABLE THROUGHOUT MY SHIFT. PATIENT NEEDS AND CONCERNS ADDRESSED. PATIENT BED ALARM IS ON. SAFETY PRECAUTIONS IN PLACE. PATIENT TURNED AND REPOSITIONED Q2H. PATIENT BED IS LOCKED AND IN LOWEST POSITION. CALL LIGHT WITHIN REACH. WILL ENDORSE CARE TO PM SHIFT FOR VERONICA.
--- NOTE | 2019-12-20 19:30 | NUR ---
FLOWER ARRANGER OPENING NOTE RECEIVED PATIENT WITH MRSA IN BLOOD ISOLATION. PATIENT IN BED, A/O X3 - 4. TOLERATING ROOM AIR. RESPIRATIONS ARE EVEN AND UNLABORED. NO S/S SOB NOTED. DENIES PAIN AT THIS TIME. EXTERNAL TELE MONITOR READS SINUS TACH HR 112. IN NO APPARENT DISTRESS. IV ACCESS IN NAOMI PICC LINE RUNNING TKO. STARK CATHETER IS PRESENT, DRAINING TO GRAVITY, URINE IS HEMATURIA. MADE PATIENT AWARE OF 1L FLUID RESTRICTION. BED IS LOW AND LOCKED, HOB ELEVATED IN SEMI FOWLERS, SIDE RIALS UP X2, EXTREMITIES OFF LOADED, BED ALARM ON. CALL LIGHT WITHIN REACH. WILL CONTINUE TO MONITOR.
[2019-12-21] VITALS (7 sets, daily range): BP systolic 113–140; BP diastolic 60–86
[2019-12-21] MEDS: HYDROCORTISONE SOD SUCCINATE 100 MG/2 ML VIAL IV SCH ×3 (03:25→17:01)
[2019-12-21] MEDS: HYDROCODONE/APAP 5/325MG 1 EACH TABLET PO PRN (03:26)
[2019-12-21] MEDS: RIFAMPIN 300 MG CAPSULE PO SCH ×3 (05:04→21:44)
--- NOTE | 2019-12-21 05:42 | NUR ---
terminal operations supervisor Closing Patient is A/O x3. On room air, no SOB or distress throughout shift, SPo2 >94%. Tele monitor attached, ST HR 111. Duff draining orange urine to gravity, patient is on Rifampin. Wound care completed, pictures taken. NAOMI PICC TKO, C/D/I. Medicated for pain x1, as patient was restless and not able to sleep. 1L/day fluid restriction, per report 500mL day shift & 300mL restaurant shift supervisor. Bed alarm on. Patient noted at times to displace items off her bed -> onto the floor ; found with what appears to be her own stool (brownish residue on right hand) ; says she can "taste the IV medications in [her] mouth". Call light within reach.
--- NOTE | 2019-12-21 07:30 | NUR ---
FITTING ROOM MAINTENANCE MECHANIC NOTES PATIENT AWAKE IN BED, NO RESPIRATORY DISTRESS, NO C/O PAIN AT THIS TIME. LADIES ATTENDANT ON SINUS TACHY 115. PATIENT'S SKIN WARM TO TOUCH, IV PICC LINE ON THE NAOMI INTACT AND PATENT. PATIENT'S NEEDS ATTENDED, BED ON LOWEST LOCKED POSITION, CALL LIGHT WITHIN REACH. WILL CONTINUE TO MONITOR.
[2019-12-21 08:48] LABS: BASOPHILS % (AUTO) 0.1 % (0.0-2.0); EOSINOPHILS % (AUTO) 0.1 % (0.0-6.0); HEMATOCRIT 28 % (33-45); LYMPHOCYTES # (AUTO) 1.6 /CMM (0.8-4.8); MEAN CORPUSCULAR HGB CONC 33 g/dl (31.0-36.0); MEAN CORPUSCULAR VOLUME 91 fL (82-100); MONOCYTES # (AUTO) 0.7 /CMM (0.1-1.30); MONOCYTES % (AUTO) 2.3 % (2.0-12.0); NEUTROPHILS # (AUTO) 28.7 /CMM (1.8-8.9); NEUTROPHILS % (AUTO) 92.5 % (43.0-81.0); RED BLOOD CELL COUNT(AUTO) 3.03 MIL/uL (4.0-5.2)
[2019-12-21 08:55] LABS: PLATELET COUNT (AUTO) 10 /CMM (150-450); WHITE BLOOD COUNT (AUTO) 31.1 K/uL (4.3-11.0)
[2019-12-21 09:03] LABS: ALBUMIN 1.5 g/dL (3.4-5.0); BILIRUBIN,TOTAL 3.6 mg/dL (0.2-1.0); CREATININE 0.6 mg/dL (0.6-1.3); MAGNESIUM 1.9 mg/dL (1.8-2.4); PHOSPHORUS 3.2 mg/dL (2.5-4.9); POTASSIUM 3.7 mmol/L (3.5-5.1); TOTAL PROTEIN, SERUM 5.4 g/dL (6.4-8.2)
[2019-12-21] MEDS: VANCOMYCIN 1 GM in IV D5W 250 ML IV SCH ×2 (09:06→23:16)
--- NOTE | 2019-12-21 09:17 | NUR ---
TECHNICAL COMMUNICATOR NOTES CRITICAL LAB VALUE REPORTED BY LULU WBC 31.1 AND PLT 10, NOTIFIED MD OF CRITICAL LAB VALUES, AWAITING FOR ORDERS.
[2019-12-21] MEDS: MUPIROCIN OINT 2% 22 GM TUBE SCH ×2 (09:24→21:47)
[2019-12-21] MEDS: FOLIC ACID 1 MG TABLET PO SCH (09:24)
[2019-12-21] MEDS: PANTOPRAZOLE 40 MG TABLET.DR PO SCH (09:24)
[2019-12-21 09:38] LABS: BAND % (MANUAL) 9 % (0.0-5.0); LYMPHOCYTES % (MANUAL) 7 % (16-48); MONOCYTES % (MANUAL) 3 % (0-11.0); NEUTROPHILS % (MANUAL) 81 (42-76)
[2019-12-21] MEDS ORDERED: HYDROCORTISONE SOD SUCCINATE 100 MG/2 ML VIAL IV SCH (10:00)
[2019-12-21] MEDS: SOD FERRIC GLUC 125 MG in IV NS 0.9% 100 ML IV SCH (14:00)
[2019-12-21] MEDS ORDERED: ACETAMINOPHEN 325 MG TABLET PO ONE (16:00)
[2019-12-21] MEDS ORDERED: diphenhydrAMINE HCL 50 MG/ML VIAL IV ONE (16:00)
--- NOTE | 2019-12-21 18:16 | NUR ---
CRITICAL CARE SPECIALIST NOTES BLOOD CULTURE RESULT OF GRAM POSITIVE COCCI CLUSTERS REPORTED BY LAURA HAMPTON MD.
--- NOTE | 2019-12-21 19:15 | NUR ---
PUBLIC HEALTH REPRESENTATIVE NOTES PATIENT AWAKE IN BED, NO RESPIRATORY DISTRESS, NO C/O PAIN AT THIS TIME. TECHNICAL COORDINATOR ON SINUS TACHY 100. SKIN WARM TO TOUCH, IV PICC LINE INTACT AND PATENT. PATIENT'S NEEDS ATTENDED, BED ON LOWEST LOCKED POSITION, CALL LIGHT WITHIN REACH. WILL ENDORSE TO ONCOMING NURSE.
--- NOTE | 2019-12-21 19:20 | NUR ---
GRANULATOR TENDER NOTES ONCOMING NURSE REPORTED THAT PLATELETS WON'T BE AVAILABLE UNTIL 0900 IN THE MORNING TOMORROW. INFORMED OLY ELIZABETH TO NOTIFY DR. WAITE REGARDING THE ORDER FOR PLATELETS THAT IT WON'T BE AVAILABLE.
--- NOTE | 2019-12-21 19:25 | NUR ---
RN OPENING NOTES RECEIVED PATIENT AWAKE IN BED. A/OX3. NO SIGNS OF DISTRESS OR DISCOMFORT. BREATHING EVEN AND UNLABORED. ON TELE MONITOR WITH ST 103 NOTED. HAS NAOMI PICC PATENT AND INTACT. HAS F/C INTACT DRAINING CLEAR JAZZY FLUID. BED IN LOW LOCKED POSITION WITH SIDE RAILS X2. CALL LIGHT WITHIN REACH. WILL CONTINUE TO MONITOR.
--- NOTE | 2019-12-21 21:10 | NUR ---
RN NOTES INFORMED DR. WAITE, PER LAB PATIENTS 1 UNIT OF PLATELETS WILL NOT BE RELEASED BY [facility] UNTIL 9AM TOMORROW MORNING. NO NEW ORDERS GIVEN. WILL CONTINUE TO MONITOR.
[2019-12-22] VITALS (11 sets, daily range): BP systolic 54–122; BP diastolic 55–78
--- NOTE | 2019-12-22 01:05 | NUR ---
RN NOTES NOTIFIED MD OF PATIENT ELEVATED HR OF 140'S. NO NEW ORDERS GIVEN. WILL CONTINUE TO MONITOR.
[2019-12-22] MEDS: RIFAMPIN 300 MG CAPSULE PO SCH ×3 (05:38→20:29)
[2019-12-22 06:56] LABS: BASOPHILS # (AUTO) 0.1 /CMM (0.0-0.2); BASOPHILS % (AUTO) 0.2 % (0.0-2.0); EOSINOPHILS % (AUTO) 0.1 % (0.0-6.0); HEMATOCRIT 26 % (33-45); HEMOGLOBIN 8.3 g/dL (11.5-14.8); LYMPHOCYTES # (AUTO) 2.3 /CMM (0.8-4.8); LYMPHOCYTES % (AUTO) 6.2 % (20.0-44.0); MEAN CORPUSCULAR HGB CONC 32 g/dl (31.0-36.0); MEAN CORPUSCULAR VOLUME 93 fL (82-100); MONOCYTES # (AUTO) 0.7 /CMM (0.1-1.30); MONOCYTES % (AUTO) 1.9 % (2.0-12.0); NEUTROPHILS # (AUTO) 34.6 /CMM (1.8-8.9); NEUTROPHILS % (AUTO) 91.6 % (43.0-81.0); RED BLOOD CELL COUNT(AUTO) 2.77 MIL/uL (4.0-5.2)
--- NOTE | 2019-12-22 07:00 | NUR ---
RN CLOSING NOTES PATIENT AWAKE IN BED. A/OX3. NO SIGNS OF DISTRESS OR DISCOMFORT. BREATHING EVEN AND UNLABORED. ON TELE MONITOR WITH ST 140 NOTED. HAS NAOMI PICC PATENT AND INTACT. HAS F/C INTACT DRAINING CLEAR JAZZY FLUID. ALL NEEDS MET. NO SIGNIFICANT CHANGES THROUGH THE NIGHT. BED IN LOW LOCKED POSITION WITH SIDE RAILS X2. CALL LIGHT WITHIN REACH. WILL ENDORSE TO AM SHIFT FOR VERONICA.
[2019-12-22 07:04] LABS: WHITE BLOOD COUNT (AUTO) 37.8 K/uL (4.3-11.0)
[2019-12-22 07:05] LABS: PLATELET COUNT (AUTO) 9 /CMM (150-450)
--- NOTE | 2019-12-22 07:15 | NUR ---
RN OPENING NOTES RECEIVED PT AWAKE IN BED AT THIS TIME WITH HOB ELEVATED. A/OX3. PT APPEARS COMFORTABLE WITH NOS/S OFANY ACUTE DISTRESS. BREATHING EVEN AND UNLABORED. PT ON TELEMETRY WILDLIFE ENFORCEMENT MAJOR WITH ST 144 NOTED. NAOMI PICC LINE PATENT AND INTACT. STARK CATHETER INTACT DRAINING CLEAR JAZZY URINE OUTPUT. PT DENIES PAIN AT THIS TIME. BED IN LOWEST LOCKED POSITION, SIDE RAILS X2. CALL LIGHT WITHIN REACH. WILL CONTINUE TO MONITOR.
[2019-12-22 07:25] LABS: CALCIUM, SERUM 7.3 mg/dL (8.5-10.1); CREATININE 0.7 mg/dL (0.6-1.3); POTASSIUM 3.4 mmol/L (3.5-5.1)
[2019-12-22] MEDS: PANTOPRAZOLE 40 MG TABLET.DR PO SCH (09:13)
[2019-12-22] MEDS: FOLIC ACID 1 MG TABLET PO SCH (09:13)
[2019-12-22] MEDS: VANCOMYCIN 1 GM in IV D5W 250 ML IV SCH (09:15)
[2019-12-22] MEDS: HYDROCORTISONE SOD SUCCINATE 100 MG/2 ML VIAL IV SCH (09:15)
--- NOTE | 2019-12-22 09:15 | NUR ---
PT PULLED OUT HER NAOMI PICC LINE SAYING SHE DOESN'T WANT IT ANYMORE.EXPLAINED THE RISKS AND BENEFITS OF HER PICC LINE SPECIALLY FOR HER PENDING PLATELET TRANSFUSION DUE TO LOW PLATELETS.PT KEEPS SAYING SORRY.NOTIFIED FIELD SALES REPRESENTATIVE AND RN BRIDGE MAINTAINER AND WILL PUT MIDLINE ON HER.PT IS A HARDSTICK. VANCO IV ON HOLD DUE TO NO IV ACCESS AT THIS TIME.AWAITING FOR MIDLINE NURSE.
--- NOTE | 2019-12-22 09:16 | NUR ---
CARDIOGRAPH OPERATOR NOTES PREPARED HYDROCORTISONE SOD SUCCINATE 100MG/2ML IV IN ORDER TO ADMINISTER 50MG/1ML IV PER ORDER, PT PULLED OUT PICC LINE PRIOR TO ADMINISTRATION. MEDICATION WAS NOT ADMINISTERED.
[2019-12-22] MEDS: MUPIROCIN OINT 2% 22 GM TUBE SCH ×2 (09:21→20:33)
--- NOTE | 2019-12-22 09:30 | NUR ---
NOTIFIED ANATOLIY,PHARMACIST WELL FOR THE PENDING VANCO IV INFUSION.WILL NOTIFY PHARMACY SOON THE MIDLINE IS INSERTED.
[2019-12-22 09:58] LABS: BAND % (MANUAL) 9 % (0.0-5.0); LYMPHOCYTES % (MANUAL) 5 % (16-48); METAMYELOCYTES % 1 % (0-0); MONOCYTES % (MANUAL) 2 % (0-11.0); NEUTROPHILS % (MANUAL) 83 (42-76)
--- NOTE | 2019-12-22 11:29 | NUR ---
SW Note SW met with the pt at bedside. Pt appeared to be oriented x4 (time, place, self and situation). Pt appeared to be disorganized and confused. Pt appeared to have an altered mental state. Pt was able to maintain appropriate eye contact and tone of voice throughout the assessment. Pt stated that she has an infection and that was why she was admitted to the hospital. Pt appears to be noncompliant with care and took out her PICC line. Pt states that she lives with her parents in their home. Pt has a history of abusing opiates, benzodiazepines and cannabis. SW provided the pt with substance abuse referrals and pt is to follow up.
[2019-12-22] MEDS ORDERED: POTASSIUM CHLORIDE 20 MEQ TAB.PRT.SR PO SCH (11:30)
--- NOTE | 2019-12-22 13:00 | NUR ---
WRINGER AND SETTER NOTES PT PULLED OUT PICC LINE AT ABOUT 0915 NURSE WAS PREPARING MEDS, CALLED PT's MOTHER (RADHA WICK) AT 1300 AND OBTAINED CONSENT FOR PICC LINE RE-INSERTION AND MYRNA SOFT WRIST RESTRAINTS PER CHATO WILSTEIN N.P ORDER. PT'S MOTHER (RADHA WICK) CONSENTED. CONSENT RECEIVED AND WITNESSED BY OLY KING. Addendum: 12/22/19 at 1659 by RADHA ANNE RN WRINGER AND SETTER NOTES PT PULLED OUT PICC LINE AT ABOUT 0915 NURSE WAS PREPARING MEDS, CALLED PT's MOTHER (RADHA WICK) AT 1300 AND OBTAINED CONSENT FOR PICC LINE RE-INSERTION, PLATELET AND BILATERAL SOFT WRIST RESTRAINTS PER CHATO WILSTEIN N.P ORDER. PT'S MOTHER (RADHA WICK) CONSENTED. CONSENT RECEIVED AND WITNESSED BY OLY KING.
--- NOTE | 2019-12-22 14:00 | NUR ---
PICC LINE RN ARRIVED AND INSERTED PICC LINE ON THE PT.NOTIFIED PHARMACY,SPOKE TO ANATOLIY,PHARMACIST WHO WILL ADJUST THE VANCO IV ADMINISTRATION AT 1800. PLATELET IS ALREADY AVAILABLE PER BLOOD BANK.WILL ADMINISTER SOON THE PICC LINE IS INSERTED.
--- NOTE | 2019-12-22 15:05 | NUR ---
AWAITING FOR CXR TO BE DONE TO CONFIRM PLACEMENT IN [place]
[2019-12-22 15:58] LABS: URINE SODIUM, RANDOM 45 mmol/l (40-220)
[2019-12-22 16:25] LABS: OSMOLALITY,URINE 270 mOS/kg (340-1090)
--- NOTE | 2019-12-22 16:40 | NUR ---
STARTED TRANSFUSING ONE BAG OF PLATELET 582ML WITH STABLE V/S.PT AFEBRILE. PT DENIES ANY DISTRESS. PT LOOKING FORWARD TO HAVE THE PLATELET TO BE TRANSFUSED. INSTRUCTED PT NOT TO PULL OUT HER NEW [place] PICC LINE EXPLAINING ITS IMPORTANCE/BENEFITS. PT VERBALIZED UNDERSTANDING OF INSTRUCTIONS GIVEN AND AGREED TO COMPLY. WILL MONITOR FOR ANY ADVERSE REACTIONS.
--- NOTE | 2019-12-22 16:55 | NUR ---
PT ON PLATELET TRANSFUSION. V/S RECHECKED AFTER 15MINS AND STABLE. NO ADVERSE REACTIONS NOTED. WILL CONTINUE TO MONITOR
--- NOTE | 2019-12-22 17:15 | NUR ---
VANCOMYCIN 1GM IN IV D5W 250ML SCHEDULED FOR 0900AM WAS PREPARED BUT NOT ADMINISTERED DUE TO PT PULLING OUT PICC LINE. CALLED [employer] TECHNICIAN JOHN AND JOHN REQUESTED THAT VANCO BE WASTED BECAUSE IT WAS NOT REFRIGERATED
--- NOTE | 2019-12-22 17:25 | NUR ---
PT ON PLATELET TRANSFUSION. V/S RECHECKED AFTER 30MINS AND STABLE. NO ADVERSE REACTIONS NOTED. WILL CONTINUE TO MONITOR
--- NOTE | 2019-12-22 17:38 | NUR ---
SPOKE TO PHARMACIST,JOHN AND MADE AWARE THAT THE PT IS STILL ON ONGOING PLATELET TRANSFUSION INFUSING. FERRLECIT IS STILL NOT READY SO WE WILL ADMINISTER VANCO IV POST PLATELET TRANSFUSION. WILL CALL PHARMACY TO PREPARE FERRLECIT IV AFTER .PT IS EATING DINNER ON HER OWN AT THIS TIME AND WAS IN A GOOD MOOD. PT HAS REFUSED BREAKFAST AND LUNCH INSPITE OF OFFERING SNACKS AND OTHER PREFERRED FOOD SAYING SHE DOESN'T FEEL GOOD. ENCOURAGED TO EAT AND DRINK FLUIDS PER RESTRICTION ORDER -PT IS ON 1 LITER FLUID RESTRICTION. WILL CONTINUE TO MONITOR.
--- NOTE | 2019-12-22 18:17 | NUR ---
PT ON PLATELET TRANSFUSION. V/S RECHECKED AT 1816 AND STABLE. NO ADVERSE REACTIONS NOTED. WILL CONTINUE TO MONITOR
--- NOTE | 2019-12-22 18:29 | NUR ---
COMPLETED PLATELET TRANSFUSION. V/S ARE STABLE. NO ADVERSE REACTIONS NOTED. PT DENIES ANY DISCOMFORT AT THIS TIME. WILL CONTINUE TO MONITOR
[2019-12-22] MEDS: VANCOMYCIN 0.75 GM in IV D5W 250 ML IV SCH (18:33)
--- NOTE | 2019-12-22 19:06 | NUR ---
RN CLOSING NOTES PT IN BED AWAKE AT THIS TIME. AOX3 STARTED. PT APPEARS COMFORTABLE, BREATHING EVEN AND UNLABORED. MARGARITO DOUBLE LUMEN PICC LINE, INTACT, PATENT AND INFUSING WELL VANCOMYCIN 0.75GM IN IV D5W 250ML @250ML/HR AT THIS TIME. PLATELET 582ML TRANSFUSED. NO ADVERSE REACTIONS NOTED. PT IS STABLE AND AFEBRILE. PT DENIES PAIN AND ANY DISTRESS. ALL CARE PROVIDED ANTICIPATED. STARK CATHETER INTACT, DRAINING TO GRAVITY JAZZY YELLOW URINE. BED IN LOWEST LOCKED POSITION, SIDE RAILS UP X 2, CALL LIGHT WITHIN REACH. WILL ENDORSE TO MOTION PICTURE SET UP WORKER NURSE FOR VERONICA.
--- NOTE | 2019-12-22 19:15 | NUR ---
RN OPENING NOTES RECEIVED PATIENT AWAKE IN BED. A/OX2-3. NO SIGNS OF DISTRESS OR DISCOMFORT. BREATHING EVEN AND UNLABORED. HAS MARGARITO PICC LINE WITH VAN CO INFUSING, PATENT AND INTACT. HAS F.C INTACT, DRAINING CLEAR JAZZY FLUID. BED IN LOW LOCKED POSITION WITH SIDE RAILS X3. CALL LIGHT WITHIN REACH. WILL CONTINUE TO MONITOR.
[2019-12-22] MEDS: HYDROCODONE/APAP 5/325MG 1 EACH TABLET PO PRN (20:29)
[2019-12-22] MEDS: SOD FERRIC GLUC 125 MG in IV NS 0.9% 100 ML IV SCH (20:45)
[2019-12-23] VITALS (9 sets, daily range): BP systolic 92–119; BP diastolic 33–71
[2019-12-23] MEDS: VANCOMYCIN 0.75 GM in IV D5W 250 ML IV SCH ×3 (00:49→18:01)
[2019-12-23] MEDS: RIFAMPIN 300 MG CAPSULE PO SCH ×3 (04:13→20:55)
--- NOTE | 2019-12-23 05:00 | NUR ---
RN NOTES PATIENT COMPLAIN SHE FEELS LIKE SHE CANT REALLY BREATH. NO PHYSICAL SIGNS OF SOB OF DISTRESS. BP 105/50 HR 140 O2 96% ON RA. PATIENT WAS LYING FLAT IN THE BED. ADVISED PATIENT TO KEEP HEAD OF BED ELEVATED. APPLIED NC ON 2LPM AT PATIENT REQUEST. WILL CONTINUE TO MONITOR.
[2019-12-23 06:37] LABS: BASOPHILS # (AUTO) 0.1 /CMM (0.0-0.2); BASOPHILS % (AUTO) 0.3 % (0.0-2.0); EOSINOPHILS % (AUTO) 0.1 % (0.0-6.0); LYMPHOCYTES # (AUTO) 1.6 /CMM (0.8-4.8); LYMPHOCYTES % (AUTO) 4.9 % (20.0-44.0); MEAN CORPUSCULAR HGB CONC 32 g/dl (31.0-36.0); MEAN CORPUSCULAR VOLUME 94 fL (82-100); MONOCYTES # (AUTO) 0.7 /CMM (0.1-1.30); MONOCYTES % (AUTO) 2.1 % (2.0-12.0); NEUTROPHILS # (AUTO) 30.5 /CMM (1.8-8.9); NEUTROPHILS % (AUTO) 92.6 % (43.0-81.0); RED BLOOD CELL COUNT(AUTO) 2.08 MIL/uL (4.0-5.2)
[2019-12-23 06:48] LABS: HEMATOCRIT 19 % (33-45); HEMOGLOBIN 6.2 g/dL (11.5-14.8); WHITE BLOOD COUNT (AUTO) 32.9 K/uL (4.3-11.0)
[2019-12-23 06:49] LABS: PLATELET COUNT (AUTO) 15 /CMM (150-450)
[2019-12-23 06:50] LABS: CALCIUM, SERUM 7.2 mg/dL (8.5-10.1); CREATININE 0.6 mg/dL (0.6-1.3); MAGNESIUM 1.6 mg/dL (1.8-2.4); PHOSPHORUS 3.7 mg/dL (2.5-4.9); POTASSIUM 3.3 mmol/L (3.5-5.1)
--- NOTE | 2019-12-23 07:08 | NUR ---
RN CLOSING NOTES PATIENT AWAKE IN BED. A/OX2-3. NO SIGNS OF DISTRESS OR DISCOMFORT. BREATHING EVEN AND UNLABORED. ON 2LPM O2 VIA NC FOR PATIENT COMFORT. HAS MARGARITO PICC LINE, PATENT AND INTACT. HAS F/C INTACT, DRAINING CLEAR JAZZY FLUID. ALL NEEDS MET. NO SIGNIFICANT CHANGES THROUGH THE NIGHT. BED IN LOW LOCKED POSITION WITH SIDE RAILS X3. CALL LIGHT WITHIN REACH. RECVD CRITICAL LAB VALUE FROM LAB AT 0647 WBC 32.9, HGB 6.2, HCT 19.4 AND PLT 15. WILL ENDORSE TO AM SHIFT FOR VERONICA.
--- NOTE | 2019-12-23 08:00 | NUR ---
rn notes received patient in the room 29 y/old female ondx of sepsis, isolation of MRSA of nares, and blood, patient a/o x3,refused pain v/s taken hr 135, bp-119/62, t-99.9, r-20, o2-100 on o2-2l nc. patient has no acute respiratory distress. Per date night sitter report get critical labs hgl-, 6.2, htc-19, plt 15, md aware of and will prescribe. patient has edema on BLE, bruises on right arm because of yesterday removed self picc line. Duff catheter draining tea color output, patient feeling weakness, assist turn and reposition q 2 hr. call light within to reach, continued monitoring.
[2019-12-23 08:24] LABS: BAND % (MANUAL) 7 % (0.0-5.0); LYMPHOCYTES % (MANUAL) 6 % (16-48); MONOCYTES % (MANUAL) 3 % (0-11.0); NEUTROPHILS % (MANUAL) 84 (42-76)
[2019-12-23] MEDS: POTASSIUM CHLORIDE 20 MEQ TAB.PRT.SR PO SCH ×3 (09:22→12:46)
[2019-12-23] MEDS: Magnesium 1GM/D5W 100ML PREMIX 100 ML IV SCH ×2 (09:23→10:56)
[2019-12-23] MEDS: ACETAMINOPHEN 325 MG TABLET PO PRN (09:26)
[2019-12-23] MEDS: HYDROCORTISONE SOD SUCCINATE 100 MG/2 ML VIAL IV SCH (09:26)
--- NOTE | 2019-12-23 09:26 | NUR ---
RN NOTES ADMINISTERED TYLENOL FORT-99.9, AND COOLING MEASURE. ADMINISTERED SCHEDULED MEDICATION, V/S STABLE, PATIENT A/O X3. CALL LIGHT WITHIN TO REACH.
[2019-12-23] MEDS: PANTOPRAZOLE 40 MG TABLET.DR PO SCH (09:27)
[2019-12-23] MEDS: FOLIC ACID 1 MG TABLET PO SCH (09:27)
[2019-12-23] MEDS: MUPIROCIN OINT 2% 22 GM TUBE SCH ×2 (09:35→21:07)
[2019-12-23] MEDS: ONDANSETRON HCL/PF 4 MG/2 ML VIAL IVP PRN ×2 (11:08→20:55)
[2019-12-23] MEDS: HYDROCODONE/APAP 5/325MG 1 EACH TABLET PO PRN (11:09)
--- NOTE | 2019-12-23 11:09 | NUR ---
RN NOTES ADMINISTERED NARCO 5/325 MG PO, PRN FOR GENERALIZED PAIN 02/16, AND ZOFRAN 4 MG/ML IV PUSH FOR NAUSEA. V/S TAKEN T-99.1,P-127, 111/64. CONTINUED MONITORING.
--- NOTE | 2019-12-23 11:54 | NUR ---
RN NOTES SEEN PATIENT BY HOSPITALIST AND GET VERBAL ORDER RBC 2 UNITS, ORDER TAKEN AND CARRIED OUT.
[2019-12-23] MEDS ORDERED: ALBUTEROL FS 2.5 MG/0.5 ML VIAL.NEB NEB PRN (14:30)
--- NOTE | 2019-12-23 14:34 | NUR ---
rn notes Started blood transfusion at this time 306 ml RH negative on left PICC line 50 ml/hr intact patent, v/s taken bp 107/51, r-20, t-98.8. p-121, o2-93 room air. patient refused pain, no SOB noted at this time, a/o x3, stable lying in the bed. call light within to reach, continued monitoring.
--- NOTE | 2019-12-23 15:00 | NUR ---
rn notes patient stable refused pain, v/s taken bp-97.53, p-115, r-20, o2-94 room air, t-98.3. patient stable , no sob, increase blood infusion to 75 ml/hr, patient tolerating well, continued monitoring.
--- NOTE | 2019-12-23 15:30 | NUR ---
RN NOTES V/S TAKEN BP-92/42, P-117, R-19, T-97.9 PATIENT HAS NO S/S OF BLOOD REACTION, REFUSED PAIN, STABLE , INCREASE 125 ML/HR BLOOD INFUSION , CONTINUED MONITORING.
--- NOTE | 2019-12-23 16:50 | NUR ---
RN NOTES PATIENT STABLE V/S TAKEN BP 108/62, P-115, R-19, O2-96 ROOM AIR, T-97.7. PATIENT REFUSED PAIN, FREE FROM S/S, INFUSING 125 ML/HR ON LEFT PICC LINE INTACT, CONTINUED MONITORING.
--- NOTE | 2019-12-23 17:45 | NUR ---
rn notes FINISHED BLOOD TRANSFUSION AT THIS TIME PATIENT STABLE REFUSED PAIN, NO SOB, FREE FROM S/S, V/S TAKEN BP-99/33, P-119, R-19, T-98.5, O2-96 ROOM AIR. CALL LIGHT WITHIN TO REACH. CONTINUED MONITORING.
--- NOTE | 2019-12-23 18:30 | NUR ---
RN NOTES PATIENT STABLE NO ACUTE RESPIRATORY DISTRESS, ON O2-2L ON AND OFF. REFUSED PAIN , V/S STABLE. INFUSING VANCOMYCIN 250 ML/HR ON LEFT PICC LINE INTACT,PATENT. CALL LIGHT WITHIN TO REACH, ASSIST TURN AND REPOSTION Q 2 HR. ELEVATED BLE USING PILLOWS, ENDORSED ONCOMING NURSE FOLLOW PLAN OF CARE.
[2019-12-23] MEDS: SOD FERRIC GLUC 125 MG in IV NS 0.9% 100 ML IV SCH (18:43)
--- NOTE | 2019-12-23 19:10 | NUR ---
MS RN OPENING NOTES RECEIVED PATIENT RESTING COMFORTABLY IN BED. A/OX3. ABLE TO VERBALIZE NEEDS. ON 2L NC. NO S/S OF ACUTE RESPIRATORY DISTRESS AND NO C/O PAIN AT THIS TIME. CONTACT PRECAUTIONS IN PLACE FOR MRSA. FLUID RESTRICTIONS IN PLACE, 1000ML/DAY. STARK CATH PRESENT, DRAINING WELL, 200 ML OF JAZZY COLORED URINE PRESENT. PICC LINE PRESENT ON LEFT UPPER ARM, INTACT & PATENT. SAFETY MEASURES IN PLACE. BED LOCKED, ALARM ON, SIDE RAILS X2, CALL LIGHT WITHIN REACH. WILL CONTINUE TO MONITOR.
--- NOTE | 2019-12-23 20:09 | NUR ---
MS RN NOTES RECEIVED PHONE CALL FROM PHARMACY. PER SPACE SCHEDULERJOHN JOHNSON, DISREGARD VANCO TROUGH VALUE AND CONTINUE WITH SCHEDULED VANCO AT 0100. VANCO TROUGH RESCHEDULED FROM 0800 TOMORROW.
[2019-12-23] MEDS: IPRATROPIUM NEB FS 0.5 MG/2.5 ML AMPUL.NEB NEB SCH (20:15)
[2019-12-23] MEDS: ALBUTEROL FS 2.5 MG/0.5 ML VIAL.NEB NEB SCH (20:15)
[2019-12-24] VITALS (8 sets, daily range): BP systolic 104–118; BP diastolic 54–91
--- NOTE | 2019-12-24 00:14 | NUR ---
MS RN NOTES 1 PACK OF LRBC BLOOD TRANSFUSION STARTED. BLOOD PRODUCT VERIFIED WITH CO-RN, JABIER. VITAL SIGNS- BP: 110/57 HR: 122 RR: 18 SPO2: 98 TEMP: 98.9. WILL MONITOR PATIENT AT THE BEDSIDE FOR THE NEXT 15 MINUTES FOR ANY REACTION.
--- NOTE | 2019-12-24 00:29 | NUR ---
MS RN NOTES PATIENT TOLERATING BLOOD TRANSFUSION WELL. INCREASED INFUSION RATE TO 60ML TO 90ML. PATIENT DENIES ANY SOB OR PAIN. VITAL SIGNS - BP: 118/65 HR: 122 RR: 18 TEMP: 98.6. WILL CONTINUE TO MONITOR.
--- NOTE | 2019-12-24 00:59 | NUR ---
MS RN NOTES PATIENT TOLERATING BLOOD TRANSFUSIONS WELL. NO S/S OF TRANSFUSION REACTION. INCREASED RATE TO 120ML/HR. VITAL SIGNS - BP: 104/61 HR: 122 RR: 18 TEMP: 98.8. WILL CONTINUE TO MONITOR.
--- NOTE | 2019-12-24 01:15 | NUR ---
MS RN NOTES CALLED [facility] REGARDING SCHEDULED VANCOMYCIN AT 0100. NOTIFIED TEACHER EDUCATION INSTRUCTOR THAT PATIENT IS CURRENTLY RECEIVING BLOOD TRANSFUSION AND AM UNABLE TO GIVE IVPB. PER TEACHER EDUCATION INSTRUCTOR, STATED THAT IT IS OK AND TO GIVE ANTIBIOTIC SOON BLOOD TRANSFUSION IS COMPLETED. WILL NOTIFY PHARMACY AND LAB IN AM TO RESCHEDULE VANCO TROUGH.
[2019-12-24] MEDS: IPRATROPIUM NEB FS 0.5 MG/2.5 ML AMPUL.NEB NEB SCH ×4 (01:35→19:23)
[2019-12-24] MEDS: ALBUTEROL FS 2.5 MG/0.5 ML VIAL.NEB NEB SCH ×4 (01:35→19:23)
--- NOTE | 2019-12-24 03:21 | NUR ---
MS RN NOTES BLOOD TRANSFUSION COMPLETED. PATIENT REMAINED STABLE; NO ADVERSE REACTIONS PRESENT. VITAL SIGNS- BP: 111/64 HR: 125 RR: 18 TEMP: 99.0
[2019-12-24] MEDS: VANCOMYCIN 0.75 GM in IV D5W 250 ML IV SCH (03:35)
[2019-12-24] MEDS: RIFAMPIN 300 MG CAPSULE PO SCH ×3 (05:38→21:26)
[2019-12-24 06:26] LABS: BASOPHILS % (AUTO) 0.2 % (0.0-2.0); EOSINOPHILS % (AUTO) 0.1 % (0.0-6.0); HEMATOCRIT 25 % (33-45); HEMOGLOBIN 8.2 g/dL (11.5-14.8); LYMPHOCYTES # (AUTO) 1.3 /CMM (0.8-4.8); LYMPHOCYTES % (AUTO) 4.7 % (20.0-44.0); MEAN CORPUSCULAR HGB CONC 33 g/dl (31.0-36.0); MEAN CORPUSCULAR VOLUME 93 fL (82-100); MONOCYTES # (AUTO) 0.6 /CMM (0.1-1.30); RED BLOOD CELL COUNT(AUTO) 2.66 MIL/uL (4.0-5.2)
[2019-12-24 07:08] LABS: PLATELET COUNT (AUTO) 11 /CMM (150-450)
[2019-12-24 07:11] LABS: CALCIUM, SERUM 7.4 mg/dL (8.5-10.1); CREATININE 0.7 mg/dL (0.6-1.3); MAGNESIUM 1.9 mg/dL (1.8-2.4); PHOSPHORUS 2.8 mg/dL (2.5-4.9); POTASSIUM 3.8 mmol/L (3.5-5.1)
--- NOTE | 2019-12-24 07:15 | NUR ---
MS RN NOTES PER DR. HOOD, PATIENT CAN HAVE 2L OF FLUID PER DAY.
--- NOTE | 2019-12-24 07:30 | NUR ---
MS RN CLOSING NOTES PATIENT RESTING IN BED. A/OX3. ON 2L NC. NO S/S OF ACUTE RESPIRATORY DISTRESS AND NO C/O PAIN AT THIS TIME. CONTACT PRECAUTIONS REMAIN IN PLACE FOR MRSA. STARK CATH INTACT & PATENT WITH 600 ML OF DARK JAZZY URINE WITH SMALL BLOOD CLOTS. PICC LINE REMAINS INTACT & PATENT. SAFETY MEASURES IN PLACE. BED LOCKED, ALARM ON, SIDE RAILS X2, CALL LIGHT WITHIN REACH. WILL ENDORSE TO DAY SHIFT PLAN OF CARE.
--- NOTE | 2019-12-24 09:00 | NUR ---
ms carole patient ate breakfast , tolerated w/ meds given, will monitor patient.
[2019-12-24 09:05] LABS: BAND % (MANUAL) 13 % (0.0-5.0); MYELOCYTES % 1 % (0-0); NEUTROPHILS % (MANUAL) 86 (42-76)
[2019-12-24 09:07] LABS: LYMPHOCYTES % (MANUAL) 0 % (16-48); MONOCYTES % (MANUAL) 0 % (0-11.0)
[2019-12-24] MEDS: FOLIC ACID 1 MG TABLET PO SCH (09:39)
[2019-12-24] MEDS: HYDROCORTISONE SOD SUCCINATE 100 MG/2 ML VIAL IV SCH (09:39)
[2019-12-24] MEDS: PANTOPRAZOLE 40 MG TABLET.DR PO SCH (09:39)
[2019-12-24] MEDS: MUPIROCIN OINT 2% 22 GM TUBE SCH ×2 (09:47→21:32)
--- NOTE | 2019-12-24 10:30 | NUR ---
ms rn was seen by for eval w/ orders made and carried out.
[2019-12-24] MEDS ORDERED: VANCOMYCIN 0.75 GM in IV D5W 250 ML IV SCH (11:00)
--- NOTE | 2019-12-24 11:30 | NUR ---
ms rn was seen by alfredo sethi, w/ orders made and carried out.
[2019-12-24] MEDS: SOD FERRIC GLUC 125 MG in IV NS 0.9% 100 ML IV SCH (15:17)
--- NOTE | 2019-12-24 17:14 | NUR ---
ms rn on bed, feeling better.
[2019-12-24] MEDS: VANCOMYCIN 1 GM in IV D5W 250 ML IV SCH (18:24)
--- NOTE | 2019-12-24 19:10 | NUR ---
RECEIVE PT A/O X 3 RESPIRATIONS EVEN AND UNLABORED, STABLE. NO S/S OF DISTRESS, SAFETY MEASURES AT ALL TIMES. WILL CONT TO MONITOR
[2019-12-24] MEDS: HYDROCODONE/APAP 5/325MG 1 EACH TABLET PO PRN (21:26)
[2019-12-24] MEDS: ONDANSETRON HCL/PF 4 MG/2 ML VIAL IVP PRN (21:33)
[2019-12-24] MEDS ORDERED: diphenhydrAMINE HCL 50 MG/ML VIAL IV ONE (23:00)
[2019-12-24] MEDS ORDERED: ACETAMINOPHEN 325 MG TABLET PO ONE (23:00)
--- NOTE | 2019-12-24 23:55 | NUR ---
PER LAB CINDY NEED TO CHANGE PLATELET ORDER TO STAT ORDER FOR THEM TO GET THE PLATELET FROM [place] RIGHT AWAY.
[2019-12-25] VITALS (8 sets, daily range): BP systolic 106–132; BP diastolic 59–84
[2019-12-25] MEDS: IPRATROPIUM NEB FS 0.5 MG/2.5 ML AMPUL.NEB NEB SCH ×4 (01:14→19:25)
[2019-12-25] MEDS: ALBUTEROL FS 2.5 MG/0.5 ML VIAL.NEB NEB SCH ×4 (01:14→19:25)
--- NOTE | 2019-12-25 02:10 | NUR ---
PER CINDY DALY PLATELET IS READY
[2019-12-25] MEDS: VANCOMYCIN 1 GM in IV D5W 250 ML IV SCH ×3 (03:46→18:56)
[2019-12-25] MEDS: RIFAMPIN 300 MG CAPSULE PO SCH ×3 (05:09→20:01)
--- NOTE | 2019-12-25 06:23 | NUR ---
PT SLEPT WELL ON 2LPM NC O2 SAT 97%. ALL NEEDS ATTENDED AND ANTICIPATED. CONTACT PRECAUTIONS. AM CARE RENDERED, S/P 1 TRANSFUSION PLATELET NO A/R NOTED NO ACTIVE BLEEDING. KEPT CLEAN, DRY AND COMFORTABLE, NO C/O OF PAIN. MONITORED ACCORDINGLY, CALL LIGHT WITHIN REACH. WILL ENDORSE TO DAY SHIFT PLAN OF CARE. ASSISTED REPOSITION EVERY 2 HOURS
--- NOTE | 2019-12-25 06:36 | NUR ---
MS RN PAGED AND RELAYED TO SALLY TREVIÑO PRELIM REPORT GRAM + COCCI IN [facility] PT ON [facility] AT THIS TIME
[2019-12-25 07:28] LABS: BASOPHILS # (AUTO) 0.1 /CMM (0.0-0.2); BASOPHILS % (AUTO) 0.4 % (0.0-2.0); EOSINOPHILS % (AUTO) 0.2 % (0.0-6.0); HEMATOCRIT 22 % (33-45); HEMOGLOBIN 7.2 g/dL (11.5-14.8); LYMPHOCYTES # (AUTO) 1.1 /CMM (0.8-4.8); LYMPHOCYTES % (AUTO) 4.3 % (20.0-44.0); MEAN CORPUSCULAR HGB CONC 32 g/dl (31.0-36.0); MEAN CORPUSCULAR VOLUME 94 fL (82-100); MONOCYTES # (AUTO) 0.7 /CMM (0.1-1.30); MONOCYTES % (AUTO) 2.7 % (2.0-12.0); NEUTROPHILS # (AUTO) 22.9 /CMM (1.8-8.9); NEUTROPHILS % (AUTO) 92.4 % (43.0-81.0); RED BLOOD CELL COUNT(AUTO) 2.37 MIL/uL (4.0-5.2); WHITE BLOOD COUNT (AUTO) 24.7 K/uL (4.3-11.0)
[2019-12-25 07:51] LABS: CALCIUM, SERUM 7.3 mg/dL (8.5-10.1); CREATININE 0.6 mg/dL (0.6-1.3); MAGNESIUM 1.8 mg/dL (1.8-2.4); PHOSPHORUS 3.4 mg/dL (2.5-4.9)
--- NOTE | 2019-12-25 08:00 | NUR ---
MS RN OPENING NOTES Received Patient resting in bed. A/O x 3. VS stable with no acute distress. Breathing even and unlabored on room air with no respiratory distress. Denies pain. Duff Cath in place and patent. MARGARITO PICC Line clean, intact, patent and flushing well. Safety precautions in place. Bed locked and set to lowest position with side rails x 2 up. All needs rendered at this time. Call light within reach. Will continue to monitor.
[2019-12-25 08:20] LABS: BAND % (MANUAL) 4 % (0.0-5.0); LYMPHOCYTES % (MANUAL) 2 % (16-48); METAMYELOCYTES % 1 % (0-0); MONOCYTES % (MANUAL) 4 % (0-11.0); NEUTROPHILS % (MANUAL) 89 (42-76); PLATELET COUNT (AUTO) 15 /CMM (150-450)
[2019-12-25] MEDS: FOLIC ACID 1 MG TABLET PO SCH (09:02)
[2019-12-25] MEDS: PANTOPRAZOLE 40 MG TABLET.DR PO SCH (09:02)
[2019-12-25] MEDS: MUPIROCIN OINT 2% 22 GM TUBE SCH ×2 (09:05→20:01)
[2019-12-25] MEDS: ONDANSETRON HCL/PF 4 MG/2 ML VIAL IVP PRN ×2 (09:10→19:06)
[2019-12-25] MEDS: HYDROCODONE/APAP 5/325MG 1 EACH TABLET PO PRN ×2 (09:21→21:57)
[2019-12-25] MEDS ORDERED: POTASSIUM CHLORIDE 20 MEQ TAB.PRT.SR PO ONE (10:00)
--- NOTE | 2019-12-25 15:55 | NUR ---
MS RN NOTES Patient requesting Benadryl for rash and itchiness. Per Yulisa PETTIT, Benadryl 25mg PO TID PRN. Order noted and carried out. Patient otherwise in stable condition. Will continue to monitor.
--- NOTE | 2019-12-25 16:23 | NUR ---
MS RN NOTES Per Yulisa PETTIT, notified Chavo MCDANIEL of Patients pruritus symptoms for possible platelet transfusion reaction. Per Chavo MCDANIEL, NNO. Will continue to monitor.
--- NOTE | 2019-12-25 16:36 | NUR ---
MS RN NOTES Per Yulisa PETITT, called ID Lucille MCDANIEL to notify pruritus symptoms but no answer at this time. Left message to return call. Will continue to monitor.
[2019-12-25] MEDS: diphenhydrAMINE HCL 25 MG CAPSULE PO PRN (16:43)
--- NOTE | 2019-12-25 18:37 | NUR ---
MS RN CLOSING NOTES Patient resting in bed. A/O x 3. VS stable with no acute distress. Breathing even and unlabored on room air with no respiratory distress. Denies pain. Duff Cath in place and patent. MARGARITO PICC Line clean, intact, patent and flushing well. Safety precautions in place. Bed locked and set to lowest position with side rails x 2 up. All needs rendered at this time. Call light within reach. Will endorse plan of care to oncoming shift.
--- NOTE | 2019-12-25 19:30 | NUR ---
MS ALDRIDGE OPENING NOTES PATIENT ASLEEP IN BED COMFORTABLY; A/OX4; BREATHING EVEN AND UNLABORED; NO SOB; NO S/S OF ACUTE RESPIRATORY DISTRESS NOTED; PATIENT TOLERATING ROOM AIR WELL; R WRIST #20 INTACT AND PATENT; FLUSHING WELL; NO S/S OF REDNESS OR INFILTRATION NOTED; PATIENT TOLERATING IVF WELL; SAFETY PRECAUTIONS IN PLACE; BED LOCKED IN LOW POSITION; SIDE RAILS X2; CALL LIGHT WITHIN REACH; WILL CONTINUE TO MONITOR Addendum: 12/25/19 at 1933 by AMAN CALLAHAN RN PATIENT RESTING IN BED COMFORTABLY A/OX3; PATIENT ON 2L NC AND TOLERATING WELL; STARK CATH IN PLACE; FLOWING REDDISH ORANGE URINE; MARGARITO PICC SL INTACT AND PATENT; FLUSHING WELL; NO S/S OF REDNESS OR INFILTRATION;
--- NOTE | 2019-12-26 00:05 | NUR ---
MS RN NOTES PATIENT VERBALIZING SHE IS FEELING HOT; TEMPERATURE CHECKED: 99.3F, PATIENT WAS OFFERED TYLENOL, PATIENT DECLINED; PATIENT REQUESTED ICE PACKS; ICE PACKS GIVEN, WILL CONTINUE TO MONITOR
[2019-12-26] MEDS: VANCOMYCIN 1 GM in IV D5W 250 ML IV SCH ×3 (01:00→18:28)
[2019-12-26] MEDS: ALBUTEROL FS 2.5 MG/0.5 ML VIAL.NEB NEB SCH ×4 (01:12→19:29)
[2019-12-26] MEDS: IPRATROPIUM NEB FS 0.5 MG/2.5 ML AMPUL.NEB NEB SCH ×4 (01:12→19:29)
--- NOTE | 2019-12-26 04:00 | NUR ---
MS RN NOTES RIFAMPIN ADMINISTERED ORDERED; ASKED PATIENT IF WE CAN CHANGE/CLEAN HER; SUBJECT STATED, "PLEASE GIVE ME MY MEDICINE AND LEAVE." WILL TRY AGAIN LATER; WILL CONTINUE TO MONITOR.
[2019-12-26] MEDS: RIFAMPIN 300 MG CAPSULE PO SCH ×3 (04:01→21:23)
[2019-12-26] MEDS: ONDANSETRON HCL/PF 4 MG/2 ML VIAL IVP PRN ×3 (05:06→18:34)
--- NOTE | 2019-12-26 05:21 | NUR ---
MS RN NOTES PATIENT WAS ASKED IF SHE NEEDED TO BE CLEANED OR CHANGED; PATIENT DENIES AND STATES SHE IS OKAY AND DOES NOT NEED TO BE CHANGED; PATIENT REQUESTED ICE CHIPS; ICE CHIPS GIVEN; WILL CONTINUE TO MONITOR.
--- NOTE | 2019-12-26 06:30 | NUR ---
MS RN CLOSING NOTES PATIENT RESTING IN BED COMFORTABLY; BREATHING EVEN AND UNLABORED; NO SOB OR S/S OF ACUTE RESPIRATORY DISTRESS NOTED; PATIENT TOLERATING 2L NC WELL; ALL NEEDS RENDERED; STARK CATH INTACT AND DRAINING REDDISH ORANGE URINE 950ML; PATIENT VERBALIZED SHE DOES NOT NEED TO BE CHANGED; MARGARITO PICC SL INTACT AND PATENT, FLUSHING WELL, NO S/S OF REDNESS OR INFILTRATION NOTED; SAFETY PRECAUTIONS IN PLACE; BED LOCKED IN LOW POSITION, HOB SEMI-FOWLERS; CALL LIGHT WITHIN EASY REACH; WILL ENDORSE VERONICA TO ONCOMING SHIFT
--- NOTE | 2019-12-26 07:10 | NUR ---
RN OPENING NOTES RECEIVED PATIENT IN BED RESTING. A/OX3, ABLE TO MAKE NEEDS KNOWN. NOT IN ANY FORM OF DISTRESS. DENIED PAIN OR DISCOMFORT AT THIS TIME. IV ACCESS INTACT AN DPATENT. KEPT PATIENT SAFE AND COMFORTABLE. BED IN LOW/LOCKED POSTION. SIDERAILS UPX2 CALL LIGHT IN REACH. WILL CONT TO MONITOR ACCORDINLGY.
[2019-12-26 08:00] VITALS: BP 99/50
[2019-12-26 09:13] LABS: BASOPHILS # (AUTO) 0.1 /CMM (0.0-0.2); BASOPHILS % (AUTO) 0.4 % (0.0-2.0); EOSINOPHILS % (AUTO) 0.2 % (0.0-6.0); HEMATOCRIT 22 % (33-45); HEMOGLOBIN 7.2 g/dL (11.5-14.8); LYMPHOCYTES # (AUTO) 1.3 /CMM (0.8-4.8); LYMPHOCYTES % (AUTO) 5.3 % (20.0-44.0); MEAN CORPUSCULAR HGB CONC 33 g/dl (31.0-36.0); MEAN CORPUSCULAR VOLUME 96 fL (82-100); MONOCYTES % (AUTO) 3.9 % (2.0-12.0); NEUTROPHILS # (AUTO) 22.6 /CMM (1.8-8.9); NEUTROPHILS % (AUTO) 90.2 % (43.0-81.0); RED BLOOD CELL COUNT(AUTO) 2.28 MIL/uL (4.0-5.2)
[2019-12-26 09:19] LABS: PLATELET COUNT (AUTO) 5 /CMM (150-450)
[2019-12-26 09:25] LABS: CALCIUM, SERUM 7.3 mg/dL (8.5-10.1); CREATININE 0.6 mg/dL (0.6-1.3); MAGNESIUM 1.6 mg/dL (1.8-2.4); PHOSPHORUS 3.3 mg/dL (2.5-4.9); POTASSIUM 3.3 mmol/L (3.5-5.1)
--- NOTE | 2019-12-26 10:07 | NUR ---
RN NOTES LAST VANCO TROUGH WAS YESTERDAY, TROUGH = 16.. PER PHARMACIST LUCIO BUENO TO GIVE DOSE TO THIS AM.
[2019-12-26] MEDS: FOLIC ACID 1 MG TABLET PO SCH (10:16)
[2019-12-26] MEDS: PANTOPRAZOLE 40 MG TABLET.DR PO SCH (10:16)
[2019-12-26 10:17] LABS: BAND % (MANUAL) 6 % (0.0-5.0); LYMPHOCYTES % (MANUAL) 5 % (16-48); MONOCYTES % (MANUAL) 2 % (0-11.0); NEUTROPHILS % (MANUAL) 87 (42-76)
[2019-12-26] MEDS: ACETAMINOPHEN 325 MG TABLET PO PRN ×2 (10:37→22:31)
[2019-12-26] MEDS: MUPIROCIN OINT 2% 22 GM TUBE SCH ×2 (10:42→21:23)
[2019-12-26] MEDS: POTASSIUM CL. PREMIX PERIPHER. 50 ML IV SCH ×2 (11:20→15:40)
[2019-12-26] MEDS: Magnesium 1GM/D5W 100ML PREMIX 100 ML IV SCH ×2 (12:14→13:45)
[2019-12-26] MEDS ORDERED: ACETAMINOPHEN 325 MG TABLET PO ONE (15:00)
[2019-12-26] MEDS ORDERED: ACETAMINOPHEN 325 MG TABLET PO PRN ×2 (15:00→17:00)
[2019-12-26] MEDS ORDERED: diphenhydrAMINE HCL 50 MG/ML VIAL IV PRN (15:00)
[2019-12-26 16:00] VITALS: BP 115/82
--- NOTE | 2019-12-26 19:40 | NUR ---
RN CLOSING NOTES PATIENT IN STABLE CONDITION. ALL NEEDS ATTENDED AND PROVIDED. ALL DUE MEDS GIVEN ORDERED. KEPT PATIENT SAFE AND COMFORTABLE. BED IN LOW/LOCKED POSITION. CALL LIGHT IN REACH. BED ALARM ON. ENDORSED ACCORDINGLY.
[2019-12-26 20:00] VITALS: BP 113/60
--- NOTE | 2019-12-26 20:55 | NUR ---
RN NOTES RECEIVED CRITICAL LAB RESULTS FROM LABORATORY REPORTED BY LIBERTAD CAMPOS AT 2046 REPEAT ANALYSIS PLATELET IS 6.
--- NOTE | 2019-12-26 21:00 | NUR ---
RN NOTES CALLED AND INFORMED DR. SALLY TREVIÑO REGARDING CRITICAL LAB RESULT, NO NEW ORDERS AT THIS TIME. PATIENT IS RESTING COMFORTABLY, WILL CONTINUE TO MONITOR.
[2019-12-26 21:10] LABS: D-DIMER 17.1 mg/L(FEU (0.17-0.50)
[2019-12-27] VITALS (12 sets, daily range): BP systolic 102–129; BP diastolic 57–73
[2019-12-27] MEDS: ALBUTEROL FS 2.5 MG/0.5 ML VIAL.NEB NEB SCH ×4 (01:57→20:00)
[2019-12-27] MEDS: IPRATROPIUM NEB FS 0.5 MG/2.5 ML AMPUL.NEB NEB SCH ×4 (01:57→20:00)
[2019-12-27] MEDS: VANCOMYCIN 1 GM in IV D5W 250 ML IV SCH ×2 (02:09→09:33)
[2019-12-27] MEDS: ONDANSETRON HCL/PF 4 MG/2 ML VIAL IVP PRN ×3 (03:22→17:33)
[2019-12-27] MEDS: RIFAMPIN 300 MG CAPSULE PO SCH (04:51)
--- NOTE | 2019-12-27 06:18 | NUR ---
RN NOTES ALL NEEDS ATTENDED AND MET, ABLE TO REST AND SLEPT AT INTERVALS. KEPT CLEAN WARM DRY AND COMFORTABLE. DENIES ANY PAIN AN DISCOMFORT AT THIS TIME, SAFETY MEASURES IN PLACE. CALL LIGHT WITH IN EASY REACH. WILL ENDORSE TO AM NURSE FOR CONTINUITY OF CARE.
--- NOTE | 2019-12-27 07:55 | NUR ---
M/S RN OPENING NOTES RECEIVED PT ON BED, A/OX 4, RESPONSIVE TO ALL STIMULI. RESPIRATION EVEN AND UNLABORED WITH NO ACUTE RESPIRATORY DISTRESS, ON ROOM AIR. ABDOMEN SOFT AND NON DISTENDED WITH ACTIVE BOWEL SOUNDS. SKIN WARM TO TOUCH, DRY AND PALE, BLE +2 PITTING EDEMA, ELEVATED BOTH LEGS, PT ON FLUID RESTRICTION 2L X 24 HOURS, PT AWARE. DENIES PAIN AND DISCOMFORT. IV SITE AT LEFT UPPER ARM PICC LINE, PATENT IN FLUSHING. BED IN LOW LOCKED POSITION, SR X2 UP FOR SAFETY. CALL LIGHT WITHIN REACH. WILL CONTINUE TO MONITOR CARE
--- NOTE | 2019-12-27 08:00 | NUR ---
M/S RN NOTES PT ON MRSA NARES CONTACT ISOLATION, ON FC WITH JAZZY TEA COLORED URINE. WILL CONTINUE TO MONITOR
[2019-12-27 08:23] LABS: BASOPHILS # (AUTO) 0.1 /CMM (0.0-0.2); BASOPHILS % (AUTO) 0.3 % (0.0-2.0); EOSINOPHILS % (AUTO) 0.3 % (0.0-6.0); HEMATOCRIT 21 % (33-45); HEMOGLOBIN 7.1 g/dL (11.5-14.8); LYMPHOCYTES # (AUTO) 1.4 /CMM (0.8-4.8); LYMPHOCYTES % (AUTO) 7.1 % (20.0-44.0); MEAN CORPUSCULAR HGB CONC 33 g/dl (31.0-36.0); MEAN CORPUSCULAR VOLUME 96 fL (82-100); MONOCYTES % (AUTO) 5.3 % (2.0-12.0); NEUTROPHILS # (AUTO) 16.6 /CMM (1.8-8.9); RED BLOOD CELL COUNT(AUTO) 2.21 MIL/uL (4.0-5.2); WHITE BLOOD COUNT (AUTO) 19.1 K/uL (4.3-11.0)
[2019-12-27 08:34] LABS: BILIRUBIN,DIRECT 1.3 mg/dL (0.0-0.2); BILIRUBIN,TOTAL 2.1 mg/dL (0.2-1.0); CALCIUM, SERUM 7.3 mg/dL (8.5-10.1); CREATININE 0.6 mg/dL (0.6-1.3); MAGNESIUM 1.9 mg/dL (1.8-2.4); PHOSPHORUS 3.2 mg/dL (2.5-4.9); POTASSIUM 3.1 mmol/L (3.5-5.1)
[2019-12-27 08:41] LABS: ALBUMIN 1.4 g/dL (3.4-5.0)
[2019-12-27 08:43] LABS: PLATELET COUNT (AUTO) 6 /CMM (150-450)
[2019-12-27 08:53] LABS: BAND % (MANUAL) 7 % (0.0-5.0); LYMPHOCYTES % (MANUAL) 4 % (16-48); MONOCYTES % (MANUAL) 6 % (0-11.0); NEUTROPHILS % (MANUAL) 83 (42-76)
--- NOTE | 2019-12-27 08:56 | NUR ---
M/S RN NOTES RECEIVED CRITICAL LEVEL FROM LEXUS ALBUMIN 1.4. FROM MANFRED PLATELET 6,000. READ BACK RESULT. CHATO PETTIT NOTIFIED. NO NEW ORDERS NOTED. WILL CONTINUE TO MONITOR CARE
--- NOTE | 2019-12-27 09:14 | NUR ---
M/S RN NOTES LUÍS GIORDANO SEEN AND EVALUATED PT, NO NEW ORDERS NOTED
[2019-12-27] MEDS ORDERED: POTASSIUM CHLORIDE 20 MEQ TAB.PRT.SR PO ONE (09:30)
[2019-12-27] MEDS: FOLIC ACID 1 MG TABLET PO SCH (09:33)
[2019-12-27] MEDS: MUPIROCIN OINT 2% 22 GM TUBE SCH ×2 (09:33→21:43)
[2019-12-27] MEDS: PANTOPRAZOLE 40 MG TABLET.DR PO SCH (09:33)
[2019-12-27] MEDS ORDERED: ACETAMINOPHEN 325 MG TABLET PO ONE ×2 (10:00→10:30)
[2019-12-27] MEDS ORDERED: diphenhydrAMINE HCL 50 MG/ML VIAL IV ONE ×2 (10:00→10:30)
--- NOTE | 2019-12-27 10:30 | NUR ---
M/S RN NOTES RECEIVED A CALL FROM DR. WAITE, NEW ORDERS FOR 2 FFP, 1 PACK RBC AND 1 BAG PLATELET. ORDER REACD BACK, NOTED AND CARRIED OUT. PT NOTIFIED
--- NOTE | 2019-12-27 11:18 | NUR ---
M/S RN NOTES CALLED LAB AND TALKED TO MEE, REPORTED THAT PT WRIST BAND FOR BLOOD TRANSFUSION IS NOT AVAILABLE AND PER PATIENT SHE HAVEN'T SEEN IT SINCE YESTERDAY (12/25), ATTEMPTED TO LOOK IN THE ROOM OR DRAWERS WITH CONSENT GIVEN BY PT, UNABLE TO FIND. PER LAB JUST PROVIDE OTHER VERIFICATION AND PIPE FITTER BLD BANK TO PREVENT DELAY OF CARE. AND WILL RE-DRAW BLOOD IN AM TO GIVE A NEW BAND FOR THE PATIENT. VERIFICATION GIVEN AND DOUBLE CHECKED WITH MR NUMBER: [id number], [id number], NAME AND .
--- NOTE | 2019-12-27 11:56 | NUR ---
M/S RN NOTE PLATELET TRANSFUSED ORDERED.
--- NOTE | 2019-12-27 12:10 | NUR ---
M/S RN NOTES PT SEEN BY CHATO PETTIT, HR NOTIFIED 120'S FOR TRANSFUSION. MD DISCUSSED WITH PT TOO REGARDING EFFECTS OF SEPSIS, TO MONITOR HR DURING TRANSFUSION AND TO BE NOTIFIED FOR TRANSFER PROCESS
--- NOTE | 2019-12-27 13:12 | NUR ---
M/S RN NOTES PRBC STARTED TO BE INFUSED
--- NOTE | 2019-12-27 13:50 | NUR ---
M/S RN NOTES RECEIVED A CALL FROM DR GAGNON (WIRING MECHANIC) WITH NEW ORDER OF 2 BAG OF PLATELETS, NOTIFIED ABOUT ORDERS OF DR. WAITE. ORDER READ BACK NOTED AND CARRIED OUT
--- NOTE | 2019-12-27 16:49 | NUR ---
M/S RN NOTES PLASMA STARTED TO TRANSFUSE ORDERED, VERIFIED BY MAXIMUS ALDRIDGE
[2019-12-27] MEDS: DAPTOMYCIN 500 MG in IV NS 0.9% 50 ML IV SCH (17:12)
--- NOTE | 2019-12-27 17:40 | NUR ---
M/S RN CLOSING NOTES PT A/O X4, RESPONSIVE TO ALL STIMULI. RESPIRATION EVEN AND UNLABORED WITH NO ACUTE RESPIRATORY DISTRESS, WITH O2 @ 2LPM VIA N/C NEEDED DUE TO EPISODES OF SOB IN MINIMAL EXERTION SUCH REPOSITIONING. ABD SOFT AND NON DISTENDED WITH BM X1, FC WITH JAZZY TEA COLOR URINE. SKIN WARM TO TOUCH AND DRY, BRUISES AND RASHES PRESENT WITH NO C/O OF ITCHINESS THROUGHOUT THE DAY. PT C/O OF PAIN BUT REFUSED PAIN MEDICATION STANDING ORDER, PER PT "I CAN TOLERATE THE PAIN THAN SIDE EFFECTS OF THE MEDICATION". IV SITE AT LEFT UPPER ARM PICC LINE, PATENT IN FLUSHING. TRANSFUSED 1 BAG OF PLATELET DUE TO CRITICAL LEVEL OF 6, 1 PRBC HGB 7.1 [address] WAIET, ENDORSED 1 PLASMA TRANSFUSION ORDERED BY DR. WAITE TO THE NEXT NURSE. PRE-TRANSFUSION AND POST TRANSFUSION ASSESSMENT DONE, VITAL SIGNS OBTAINED, PT HAS NO COMPLAIN OF SOB, ITCHINESS, DIZZINESS, HEADACHE OR ANY SIGNS OF ANAPHYLACTIC REACTION. PT TOLERATED TRANSFUSION. BED IN LOCKED POSITION, SR X2 UP FOR SAFETY. CALL LIGHT WITHIN REACH. ENDORSED PT CARE TO NEXT NURSE
--- NOTE | 2019-12-27 19:35 | NUR ---
MS RN OPENING NOTES RECEIVED PATIENT FROM MORNING SHIFT, ALERT AND ORIENTED X 3, ANXIOUS. VERBALLY RESPONSIVE AND ABLE TO FOLLOW DIRECTIONS. BREATHING REGULAR AND UNLABORED ON ROOM AIR. LEFT UPPER ARM PICC LINE INTACT AND PATENT, FLUSHING WELL WITH NO BLEEDING OR S/S OF INFILTRATION NOTED. DENIES ANY SUICIDAL/HOMICIDAL IDEATION AT THIS TIME. NO COMPLAINTS OF PAIN/DISCOMFORT REPORTED. BED LOW AND LOCKED ON SEMI FOWLERS POSITION. CALL LIGHT IN REACH. WILL CONTINUE TO MONITOR.
--- NOTE | 2019-12-27 20:00 | NUR ---
M/S RN NOTES PT ON MRSA NARES CONTACT ISOLATION, ON FC WITH JAZZY TEA COLORED URINE. WILL CONTINUE TO MONITOR
--- NOTE | 2019-12-27 20:30 | NUR ---
MS RN NOTES LAB CALLED REGARDING PATIENT NOT HAVING THE BLOOD BANK ARM BAND, PER MORNING NURSE THE PATIENT LOST IT AND LAB AGREED TO RELEASE BLOOD WITHOUT IT LONG THE RN PUT THE BLOOD BANK NUMBER ON BLOOD RELEASE FORM. NOC SHIFT LAB PERSONNEL DIDN'T AGREE AND ASKED TO HAVE ANOTHER BLOOD TYPE AND SCREEN TEST. WILVER TREVIÑO NOTIFIED WITH ORDERS TO DO IT AGAIN, NOTED AND CARRIED OUT.
--- NOTE | 2019-12-27 21:00 | NUR ---
MS RN NOTES PATIENT OBSERVED COUGHING UP STREAK OF BLOOD SPUTUM, DENIES ANY PAIN/DISCOMFORT. NO OTHER S/S OF BLEEDING NOTED. BAR ASSISTANT HUDSON MADE AWARE WITH ORDERS TO CONTINUE TRANSFUSION OF PLASMA AND PLATELET ORDERED EARLIER. PATIENT NOTIFIED.
[2019-12-28] VITALS (14 sets, daily range): BP systolic 102–127; BP diastolic 55–72
[2019-12-28] MEDS: ONDANSETRON HCL/PF 4 MG/2 ML VIAL IVP PRN ×3 (00:09→18:55)
[2019-12-28] MEDS: ACETAMINOPHEN 325 MG TABLET PO PRN ×2 (00:10→18:57)
--- NOTE | 2019-12-28 00:30 | NUR ---
MS RN NOTES RELEASED AND TOOK PLASMA FROM THE LAB FOR TRANSFUSION. PER HIGH PRESSURE OPERATOR MEMO PLATELET WON'T BE AVAILABLE UNTIL THIS MORNING. CHARGE NURSE NOTIFIED.
--- NOTE | 2019-12-28 00:45 | NUR ---
MS RN NOTES SET OF VITAL SIGNS PRIOR TO TRANSFUSION OF PLASMA TAKEN, PATIENT NOTED WITH BODY TEMPERATURE OF 100.2. TRANSFUSION HELD, TYLENOL 650MG GIVEN BY MOUTH. COOLING MEASURES PROVIDED. PLASMA RETURNED TO BLOOD BANK. WILL CONTINUE TO MONITOR.
[2019-12-28] MEDS: ALBUTEROL FS 2.5 MG/0.5 ML VIAL.NEB NEB SCH ×5 (01:49→20:03)
[2019-12-28] MEDS: IPRATROPIUM NEB FS 0.5 MG/2.5 ML AMPUL.NEB NEB SCH ×5 (01:49→20:03)
--- NOTE | 2019-12-28 05:10 | NUR ---
MS RN NOTES STARTED PLASMA TRANSFUSION, PRE TRANSFUSION VITAL SIGNS TAKEN AND DOCUMENTED. CLOSELY OBSERVED FOR TRANSFUSION REACTIONS.
--- NOTE | 2019-12-28 05:25 | NUR ---
MS RN NOTES NO TRANSFUSION REACTIONS NOTED AFTER 15MINUTES. VITAL SIGNS TAKEN AND RECORDED.
--- NOTE | 2019-12-28 05:50 | NUR ---
MS RN NOTES S/P PLASMA TRANSFUSION WITH NO ADVERSE OR TRANSFUSION REACTIONS NOTED. VITAL SIGNS TAKEN. WILL CONTINUE TO MONITOR.
--- NOTE | 2019-12-28 06:55 | NUR ---
MS RN CLOSING NOTES PATIENT IN BED ALERT AND ORIENTED X 3. BREATHING REGULAR AND UNLABORED ON ROOM AIR. LEFT UPPER ARM PICC LINE PATENT AND FLUSHING WELL. NO COMPLAINTS OF PAIN/DISCOMFORT REPORTED AT THIS TIME. BED LOW AND LOCKED ON SEMI FOWLERS POSITION. CALL LIGHT IN REACH. WILL ENDORSE TO MORNING SHIFT FOR VERONICA.
[2019-12-28 07:31] LABS: BASOPHILS # (AUTO) 0.1 /CMM (0.0-0.2); BASOPHILS % (AUTO) 0.3 % (0.0-2.0); EOSINOPHILS % (AUTO) 0.2 % (0.0-6.0); HEMATOCRIT 22 % (33-45); HEMOGLOBIN 7.2 g/dL (11.5-14.8); LYMPHOCYTES # (AUTO) 1.4 /CMM (0.8-4.8); MEAN CORPUSCULAR HGB CONC 33 g/dl (31.0-36.0); MEAN CORPUSCULAR VOLUME 94 fL (82-100); MONOCYTES # (AUTO) 1.1 /CMM (0.1-1.30); MONOCYTES % (AUTO) 6.4 % (2.0-12.0); NEUTROPHILS # (AUTO) 14.3 /CMM (1.8-8.9); NEUTROPHILS % (AUTO) 85.1 % (43.0-81.0); RED BLOOD CELL COUNT(AUTO) 2.32 MIL/uL (4.0-5.2); WHITE BLOOD COUNT (AUTO) 16.9 K/uL (4.3-11.0)
--- NOTE | 2019-12-28 07:41 | NUR ---
MS RN OPENING NOTES PATIENT IN BED, AWAKE, A/O X3. PATIENT ON ROOM AIR; BREATHING IS EVEN AND UNLABORED, IN NO ACUTE DISTRESS AT THIS TIME. MARGARITO PICC LINE IN INTACT AND FLUSHING WELL. NO COMPLAINS OF PAIN OR DISCOMFORT. STARK CATH IN PLACE DRAINING YELLOW URINE. SAFETY PRECAUTIONS IN PLACE; BED IN LOW POSITION AND LOCKED, RAINS UP X2, CALL LIGHT WITHIN REACH. WILL CONTINUE TO MONITOR PATIENT.
[2019-12-28 07:44] LABS: PLATELET COUNT (AUTO) 6 /CMM (150-450)
[2019-12-28 07:54] LABS: CALCIUM, SERUM 7.5 mg/dL (8.5-10.1); CREATININE 0.6 mg/dL (0.6-1.3); MAGNESIUM 1.7 mg/dL (1.8-2.4); PHOSPHORUS 3.6 mg/dL (2.5-4.9); POTASSIUM 2.9 mmol/L (3.5-5.1)
[2019-12-28 08:03] LABS: BAND % (MANUAL) 1 % (0.0-5.0); LYMPHOCYTES % (MANUAL) 10 % (16-48); MONOCYTES % (MANUAL) 6 % (0-11.0); NEUTROPHILS % (MANUAL) 83 (42-76)
[2019-12-28] MEDS: Magnesium 1GM/D5W 100ML PREMIX 100 ML IV SCH ×4 (09:13→14:57)
[2019-12-28] MEDS: MUPIROCIN OINT 2% 22 GM TUBE SCH ×2 (09:50→21:02)
[2019-12-28] MEDS: FOLIC ACID 1 MG TABLET PO SCH (09:53)
[2019-12-28] MEDS: PANTOPRAZOLE 40 MG TABLET.DR PO SCH (09:53)
[2019-12-28] MEDS ORDERED: POTASSIUM CHLORIDE 20 MEQ TAB.PRT.SR PO SCH (10:00)
--- NOTE | 2019-12-28 10:24 | NUR ---
WOUND CARE CONSULT/FOLLOW UP: PT SEEN FOR SACRAL DEEP TISSUE INJURY TO SACRUM WHICH WAS PRESENT ON ADMISSION AND IS NOW IN EVOLUTION. RECOMMENDATIONS MADE FOR SKIN PROTECTION AND WOUND CARE. DISCUSSED WITH NURSING STAFF. IN AGREEMENT WITH PLAN OF CARE. Addendum: 12/28/19 at 1028 by FRED THOMPSON WNDNU Amended: Links added.
--- NOTE | 2019-12-28 16:19 | NUR ---
MS RN NOTES PER DR NOGUEIRA TRANSFUSE ONE UNIT OF PLATELETS. AFTER CLARIFYING THE ORDER AND LETTING HIM KNOW THAT 2 UNITS HAVE BEED ALREADY TRANSFUSED TO DAY, THE ORDER WAS CANCELED.
[2019-12-28] MEDS: DAPTOMYCIN 500 MG in IV NS 0.9% 50 ML IV SCH (17:00)
--- NOTE | 2019-12-28 19:12 | NUR ---
MS RN CLOSING NOTES PATIENT IN BED, AWAKE, A/O X3. PATIENT ON ROOM O2 AT 2 LPM; BREATHING IS EVEN AND UNLABORED, IN NO ACUTE DISTRESS AT THIS TIME. MARGARITO PICC LINE IN INTACT AND FLUSHING WELL. PATIENT DEVELOPED FEVER IN THE EVENING OF 100.2; TYLENOL ADMINISTERED. STARK CATH IN PLACE DRAINING YELLOW URINE.ALL NEEDS ATTENDED DURING THE DAY. SAFETY PRECAUTIONS IN PLACE; BED IN LOW POSITION AND LOCKED, RAINS UP X2, CALL LIGHT WITHIN REACH. 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
[2019-12-28] MEDS: diphenhydrAMINE HCL 25 MG CAPSULE PO PRN (21:04)
--- NOTE | 2019-12-28 21:30 | NUR ---
MS RN NOTES CALLED CONFIRMING IF THE BLOOD PRODUCTS ARE GIVEN THE PATIENT'S PLATELETS ARE STILL LOW. INFORMED HER THAT ALL ORDERS ARE CARRIED OUT IN THE MORNING AND UPDATED HER ABOUT PATIENT'S TRANSFER [facility].
[2019-12-29] MEDS: ALBUTEROL FS 2.5 MG/0.5 ML VIAL.NEB NEB SCH ×2 (00:58→07:35)
[2019-12-29] MEDS: IPRATROPIUM NEB FS 0.5 MG/2.5 ML AMPUL.NEB NEB SCH ×2 (00:58→07:35)
--- NOTE | 2019-12-29 03:45 | NUR ---
MS RN NOTES HAD AN EPISODE OF SHORTNESS OF BREATH SPO2 88%, HOOKED TO OXYGEN AT 6L/MIN VIA FACE MASK, HEAD OF THE BED ELEVATED, REASSURED AND ENCOURAGED TO DO DEEP BREATHING. SPO2 INCREASED TO 96-100%
--- NOTE | 2019-12-29 04:00 | NUR ---
MS RN NOTES PER RT PATIENT'S BREATHING TREATMENT SHOULD BE CHANGED TO INHALER THIS IS THEIR NEW POLICY. DIRECTOR OF INSTRUCTION HUDSON NOTIFIED WITH ORDERS TO CHANGE NEBULES TO INHALER NOTED AND CARRIED OUT. PHARMACY THEN CALLED SAYING THAT FROM THEIR OWN POLICY NEGATIVE COVID PATIENTS CAN STILL HAVE NEBULES BREATHING TREATMENTS. RT ON DUTY NOTIFIED AND SAID HE WILL TALK TO HIS HEAD USHER THIS MORNING ABOUT IT.
[2019-12-29] MEDS: ONDANSETRON HCL/PF 4 MG/2 ML VIAL IVP PRN ×2 (04:56→11:35)
[2019-12-29] MEDS ORDERED: IPRATROPIUM/ALBUTEROL INHALER IH SCH (06:00)
[2019-12-29] MEDS: ACETAMINOPHEN 325 MG TABLET PO PRN (06:03)
--- NOTE | 2019-12-29 06:15 | NUR ---
MS RN NOTES NOTED WITH BODY TEMPERATURE OF 100.4 TYLENOL 650MG GIVEN BY MOUTH, COOLING MEASURES PROVIDED. WILL CONTINUE TO MONITOR.
--- NOTE | 2019-12-29 07:35 | NUR ---
MS RN OPENING NOTE PATIENT IN BED RESTING COMFORTABLY. PATIENT IN NO ACUTE DISTRESS. NO SOB NOTED. PATIENT BREATHING IS EVEN AND UNLABORED. PATIENT IN NO PAIN AT THIS TIME. NO FACIAL GRIMACING NOTED. PATIENT BED ALARM IS ON. SAFETY PRECAUTIONS IN PLACE. PATIENT BED IS LOCKED AND IN LOWEST POSITION. CALL LIGHT WITHIN REACH. WILL CONTINUE TO MONITOR.
[2019-12-29 08:00] VITALS: BP 111/73
[2019-12-29] MEDS: PANTOPRAZOLE 40 MG TABLET.DR PO SCH (08:41)
[2019-12-29] MEDS: FOLIC ACID 1 MG TABLET PO SCH (08:41)
[2019-12-29] MEDS: MUPIROCIN OINT 2% 22 GM TUBE SCH (08:43)
[2019-12-29 08:51] LABS: CALCIUM, SERUM 7.3 mg/dL (8.5-10.1); CREATININE 0.6 mg/dL (0.6-1.3); MAGNESIUM 1.8 mg/dL (1.8-2.4)
[2019-12-29] MEDS: POTASSIUM CHLORIDE 20 MEQ TAB.PRT.SR PO SCH ×2 (11:32→12:06)
--- NOTE | 2019-12-29 12:29 | NUR ---
MS SOLAR LAB TECHNICIAN NOTE PATIENT MEDICALLY STABLE FOR TRANSFER. PATIENT IN NO ACUTE DISTRESS. NO SOB NOTED. PATIENT BREATHING IS EVEN AND UNLABORED. DC INSTRUCTIONS PROVIDED. PATIENT VERBALIZED UNDERSTANDING. PATIENT LEFT UPPER ARM PICC LINE PATENT AND INTACT. PATIENT STARK CATHETER PATENT AND HANGING TO GRAVITY. PATIENT SKIN ASSESSED. NO NEW SKIN BREAKDOWN NOTED. PATIENT DID HAVE PERINEAL REDNESS AND CHEST REDNESS. PATIENT REFUSED TO HAVE PICTURES FOR PERINEAL AND CHEST REDNESS. PATIENT KEPT CLEAN, DRY AND COMFORTABLE THROUGHOUT SHIFT. NEEDS AND CONCERNS ADDRESSED. REPORT GIVEN TO CANDE ALDRIDGE AT [facility]GED WITH [facility]. PATIENT GOING BY [facility] WITH EMT. TRANSFERRED TO [facility] GOING BACK TO [facility]. AWARE OF DISCHARGE. Addendum: 12/29/19 at 1241 by NATALIYA GREWAL RN MS SOLAR LAB TECHNICIAN NOTE PATIENT MEDICALLY STABLE FOR TRANSFER. PATIENT IN NO ACUTE DISTRESS. NO SOB NOTED. PATIENT BREATHING IS EVEN AND UNLABORED. DC INSTRUCTIONS PROVIDED. PATIENT VERBALIZED UNDERSTANDING. PATIENT SIGNED BELONGINGS LIST, AND HAS BELONGINGS WITH HER. PATIENT LEFT UPPER ARM PICC LINE PATENT AND INTACT. PATIENT STARK CATHETER PATENT AND HANGING TO GRAVITY. PATIENT SKIN ASSESSED. NO NEW SKIN BREAKDOWN NOTED. PATIENT DID HAVE PERINEAL REDNESS AND CHEST REDNESS. PATIENT REFUSED TO HAVE PICTURES FOR PERINEAL AND CHEST REDNESS. PATIENT KEPT CLEAN, DRY AND COMFORTABLE THROUGHOUT SHIFT. NEEDS AND CONCERNS ADDRESSED. REPORT GIVEN TO CANDE ALDRIDGE AT [facility]GED WITH [facility]. PATIENT GOING BY [facility] WITH EMT. TRANSFERRED TO [facility] GOING BACK TO AMBULANCE [facility]. AWARE OF DISCHARGE.
== END 2019-12-29 16:28 | disposition short-term general hospital (02) | DRG 720 ==
LOC: ER 06:52 → ICU 10:03 → TELE 12-20 12:02 → MED 12-22 19:19
PROVIDERS: ADMIT Student in an Organized Health Care Education/Training Program
PROC: 05HC33Z Insertion of Infusion Device into Left Basilic Vein, Percutaneous Approach (ICD-10-PCS; principal; 2019-12-14)
PROC: 02HV33Z Insertion of Infusion Device into Superior Vena Cava, Percutaneous Approach (ICD-10-PCS; 2019-12-15)
PROC: B548ZZA Ultrasonography of Superior Vena Cava, Guidance (ICD-10-PCS; 2019-12-15)
PROC: 30233P1 Transfusion of Nonautologous Frozen Red Cells into Peripheral Vein, Percutaneous Approach (ICD-10-PCS; 2019-12-16)
PROC: 30233R1 Transfusion of Nonautologous Platelets into Peripheral Vein, Percutaneous Approach (ICD-10-PCS; 2019-12-16)
PROC: 30233K1 Transfusion of Nonautologous Frozen Plasma into Peripheral Vein, Percutaneous Approach (ICD-10-PCS; 2019-12-18)
PROC: 02HV33Z Insertion of Infusion Device into Superior Vena Cava, Percutaneous Approach (ICD-10-PCS; 2019-12-22)
PROC: B548ZZA Ultrasonography of Superior Vena Cava, Guidance (ICD-10-PCS; 2019-12-22)
DX: A41.9 Sepsis, unspecified organism (principal); I26.90 Septic pulmonary embolism without acute cor pulmonale; D65 Disseminated intravascular coagulation [defibrination syndrome]; I33.0 Acute and subacute infective endocarditis; E43 Unspecified severe protein-calorie malnutrition; K72.00 Acute and subacute hepatic failure without coma; I76 Septic arterial embolism; D68.9 Coagulation defect, unspecified; E27.40 Unspecified adrenocortical insufficiency; N17.0 Acute kidney failure with tubular necrosis; J18.9 Pneumonia, unspecified organism; E83.51 Hypocalcemia; E87.1 Hypo-osmolality and hyponatremia; R65.21 Severe sepsis with septic shock; G92 Toxic encephalopathy; D72.829 Elevated white blood cell count, unspecified; R74.0 Nonspecific elevation of levels of transaminase and lactic acid dehydrogenase [LDH]; D64.9 Anemia, unspecified; E87.2 Acidosis; E88.09 Other disorders of plasma-protein metabolism, not elsewhere classified; F90.9 Attention-deficit hyperactivity disorder, unspecified type; Z68.30 Body mass index [BMI] 30.0-30.9, adult; F19.10 Other psychoactive substance abuse, uncomplicated; E79.0 Hyperuricemia without signs of inflammatory arthritis and tophaceous disease; E86.1 Hypovolemia; I42.9 Cardiomyopathy, unspecified; E80.6 Other disorders of bilirubin metabolism; E78.5 Hyperlipidemia, unspecified; I07.9 Rheumatic tricuspid valve disease, unspecified; K76.0 Fatty (change of) liver, not elsewhere classified; E87.6 Hypokalemia; B95.62 Methicillin resistant Staphylococcus aureus infection as the cause of diseases classified elsewhere; N18.9 Chronic kidney disease, unspecified; L29.9 Pruritus, unspecified; T38.0X5A Adverse effect of glucocorticoids and synthetic analogues, initial encounter
CPT/HCPCS: 36415; 36569; 36600; 70450-TC; 71045-TC; 71250-TC; 76700-TC; 80048-TC; 80053-TC; 80061-TC; 80076-TC; 80202-TC; 80305; 81000-TC; 82140-TC; 82533; 82550-TC; 82728-TC; 82803-TC; 83540-TC; 83605-TC; 83615-TC; 83735-TC; 83935-TC; 84100-TC; 84295-TC; 84300-TC; 84443-TC; 84484-TC; 84550-TC; 84703-TC; 85025-TC; 85378-TC; 85385-TC; 85396; 85610-TC; 85730-TC; 86140-TC; 86706; 86803; 86850-TC; 86921-TC; 87040-TC; 87081-TC; 87340; 87806; 93307-TC; 94799-TC; A4216; C1751; G0378; G0480; J0133; J0456; J0878; J1200; J1720; J2185; J2370; J2405; J2543; J2916; J2930; J3370; J3475; J3480; J3490; J7030; J7040; J7042; J7050; J7060; P9016-BL; P9017-BL; P9034-BL; Q0163

== ENCOUNTER 2020-01-04 18:27 | Inpatient (IN) | payer OTHER ==
[2020-01-04] VITALS: BP 115/70
[~2020-01-04] VITALS: Ht 162.6 cm; Wt 81.6 kg
[2020-01-04 22:30] VITALS: BP 116/67
--- NOTE | 2020-01-04 22:30 | NUR ---
BATTERY ASSEMBLER PLASTIC ADMITTING NOTE RECEIVED PATIENT FROM EMS VIA GURNEY, PATIENT TRANSFERRED TO BED. A/O X4. TOLERATING ROOM AIR. RESPIRATIONS AR EVEN AND UNLABORED. NO S/S SOB NOTED. PATIENT IS CURRENTLY IN PAIN. INFORMED PATIENT I WILL RADHA TO GET A MED RECON FROM .EXTERNAL TELE READ SINUS TACHYCARDIA HR 114. IN NO APPARENT DISTRESS. IV ACCESS IN LFA #20 PATENT AND SALINE LOCKED, PATENT STATES THERE IS PAIN WHEN FLUSHED, INFORMED HER I WILL NEED TO PLACE A NEW IV. PREPARATION CENTER COORDINATOR OBTAINED A BELONGINGS LIST AND RECORDED VITAL SIGNS. INATAL PHYSICAL ASSESSMENT COMPLETES AT THIS TIME. SKIN ASSESSMENT COMPLETED AT THIS TIME. PHOTOS TAKEN AND PLACED IN CHART. MRSA SWAB OBTAINED. BED IS LOW AND LOCKED. HOB ELEVATED IN HIGH FOWLERS, SIDE RIALS UPX2, EXTREMITIES OFFLOADED. QUINCY LIGHT WITHIN REACH. WILL CONTINUE TO MONITOR.
[2020-01-04 22:45] VITALS: BP 116/67
[2020-01-05] VITALS: BP 115/70
[2020-01-05] MEDS ORDERED: ALBU2.5V13 NEB ×2 (00:32)
[2020-01-05] MEDS ORDERED: ZINC1CAP2 PO (00:32)
[2020-01-05] MEDS ORDERED: DOCU100C36 PO (00:32)
[2020-01-05] MEDS ORDERED: FOLI10PO5 PO (00:32)
[2020-01-05] MEDS ORDERED: ASCO500T10 PO (00:32)
[2020-01-05] MEDS ORDERED: FURO40TA5 PO (00:32)
[2020-01-05] MEDS ORDERED: BISA10SU12 RC (00:32)
[2020-01-05] MEDS ORDERED: HYDR4TAB4 PO (00:32)
[2020-01-05] MEDS ORDERED: GLUC1KIT IM (00:32)
[2020-01-05] MEDS ORDERED: NYST15PO4 TP (00:32)
[2020-01-05] MEDS ORDERED: BALS60OI4 TP (00:32)
[2020-01-05] MEDS ORDERED: KETO30VI14 IV (00:32)
[2020-01-05] MEDS ORDERED: INSU100V39 SQ (00:32)
[2020-01-05] MEDS ORDERED: FAMO20TA8 PO (00:32)
[2020-01-05] MEDS ORDERED: IRON100V IV (00:32)
[2020-01-05] MEDS ORDERED: METO25TA20 PO (00:32)
[2020-01-05] MEDS ORDERED: VANC1PLA9 IV (00:32)
[2020-01-05] MEDS ORDERED: ENOX40DI SQ (00:32)
[2020-01-05] MEDS ORDERED: DOCUSATE SODIUM 100 MG CAPSULE PO SCH (01:00)
--- NOTE | 2020-01-05 02:16 | NUR ---
INSPECTOR PAWNSHOP DETAIL NOTE TRANSFER OF CARE TO JABIER ADLRIDGE.
--- NOTE | 2020-01-05 02:29 | NUR ---
MS/TELE/RN ASSUMED CARE FOR CONTINUITY OF CARE. PATIENT WAS ON BED AWAKE, ALERT, ORIENTED, COMFORTABLE, NO DISTRESS NOTED. PER OLY EMERY, IV NEEDS TO BE CHANGED. I ATTEMPTED TO FLUSH THE IV IF IT'S WORKING BUT PATIENT REFUSED. INFORMED PATIENT THAT SHE NEEDS TO HAVE A GOOD IV SHE HAS AN ANTIBIOTIC IV THAT NEEDS TO BE INFUSED, BUT PATIENT STILL REFUSED, YELLING, "GO AWAY". OFFERED TO INSERT NEW IV BUT PATIENT ALSO REFUSED. INFORMED THE AMMONIA WORKERIVANA WHO SPOKE TO THE PATIENT BUT PATIENT ALSO REFUSED. WHEN TOLD ABOUT THE IV ANTIBIOTIC THAT NEEDS TO BE ADMINISTERED, PATIENT SAID "DO IT IN THE MORNING".
[2020-01-05] MEDS ORDERED: VANCOMYCIN HCL 1.25 GM in IV D5W 250 ML IV ONE (02:30)
[2020-01-05] MEDS: KETOROLAC TROMETHAMINE INJ 30 MG/ML VIAL IV PRN ×3 (02:58→18:12)
--- NOTE | 2020-01-05 02:59 | NUR ---
MS/TELE/RN OFFERED AGAIN TO INSERT IV, BUT STILL REFUSED.
[2020-01-05 04:00] VITALS: BP 111/61
[2020-01-05] MEDS: ACETAMINOPHEN 325 MG TABLET PO PRN ×2 (04:04→18:19)
--- NOTE | 2020-01-05 04:20 | NUR ---
MS/TELE/RN TEMP 99.7, TYLENOL 650 MG PO WAS GIVEN PER PATIENT'S REQUEST. WILL MONITOR.
--- NOTE | 2020-01-05 06:10 | NUR ---
MS/TELE/RN PATIENT IS SLEEPING AT THIS TIME, APPEAR COMFORTABLE, NO SIGNS OF DISTRESS NOTED, ALL NEEDS ATTENDED AT THIS TIME, WILL CONTINUE TO MONITOR.
--- NOTE | 2020-01-05 07:20 | NUR ---
ms rn received on bed, awake,alert,oriented x4,not in any form of distress, respirations even and unlabored,no sob noted, will monitor patient's condition.
[2020-01-05 08:00] VITALS: BP 87/56
--- NOTE | 2020-01-05 08:00 | NUR ---
ms rmn breakfast served, tolerated well.
[2020-01-05] MEDS: METOPROLOL TARTRATE 25 MG TABLET PO SCH ×2 (09:00→18:11)
--- NOTE | 2020-01-05 09:26 | NUR ---
WOUND CARE CONSULT: PT PRESENTS WITH UNSTAGEABLE ULCER TO SACRUM, RASH TO BUTTOCKS AND INNER THIGHS, CHEST INCISION WHICH IS CLOSED AND 3 SUTURES TO ABDOMEN, ALL PRESENT ON ADMISSION. RECOMMEND SURGICAL CONSULT. DR FREDRICK RAMOS NOTIFIED OF CONSULT REQUEST. RECOMMENDATIONS MADE FOR SKIN PROTECTION AND WOUND CARE. DISCUSSED WITH NURSING STAFF. WILL SEE PRN. MCDANIEL IN AGREEMENT WITH PLAN OF CARE. PT IS AMBULATORY AT THIS TIME WITH ASSISTANCE AND GETS UP TO COMMODE. Addendum: 01/05/20 at 0928 by FRED THOMPSON WNDNU Amended: Links added.
[2020-01-05] MEDS ORDERED: HYDROGEL DRESSING 90 GM TUBE TP PRN (09:30)
[2020-01-05] MEDS: HYDROGEL DRESSING 90 GM TUBE TP SCH ×2 (09:30→18:09)
[2020-01-05] MEDS ORDERED: Z GUARD REMEDY 2 OZ OINT TP PRN (09:30)
[2020-01-05] MEDS: FAMOTIDINE (20 MG) 20 MG TABLET PO SCH (10:32)
[2020-01-05] MEDS: ASCORBIC ACID 500 MG TABLET PO SCH ×2 (10:32→18:11)
[2020-01-05] MEDS: ZINC SULFATE 220 MG CAPSULE PO SCH (10:32)
[2020-01-05] MEDS: FUROSEMIDE 40 MG TABLET PO SCH ×2 (10:33→18:10)
[2020-01-05] MEDS: FOLIC ACID 1 MG TABLET PO SCH (10:33)
[2020-01-05] MEDS ORDERED: FEE PK DOSING 1 MIN EA MC ONE (14:30)
--- NOTE | 2020-01-05 15:00 | NUR ---
ms rn midline at upper arm done, will monitor patient.
[2020-01-05 16:00] VITALS: BP 109/72
--- NOTE | 2020-01-05 17:00 | NUR ---
ms chemist internship draw for benson done ,will wait for result.
[2020-01-05] MEDS: Z GUARD REMEDY 2 OZ OINT TP SCH (18:10)
[2020-01-05] MEDS: CLOTRIMAZOLE 1% 15 GM TUBE TP SCH (18:11)
[2020-01-05] MEDS: ONDANSETRON HCL/PF 4 MG/2 ML VIAL IVP PRN (18:20)
[2020-01-05 18:31] LABS: BASOPHILS # (AUTO) 0.1 /CMM (0.0-0.2); EOSINOPHILS % (AUTO) 1.1 % (0.0-6.0); HEMATOCRIT 25 % (33-45); HEMOGLOBIN 7.9 g/dL (11.5-14.8); LYMPHOCYTES # (AUTO) 1.4 /CMM (0.8-4.8); LYMPHOCYTES % (AUTO) 9.9 % (20.0-44.0); MEAN CORPUSCULAR HGB CONC 32 g/dl (31.0-36.0); MEAN CORPUSCULAR VOLUME 95 fL (82-100); MONOCYTES # (AUTO) 0.8 /CMM (0.1-1.30); MONOCYTES % (AUTO) 5.5 % (2.0-12.0); NEUTROPHILS # (AUTO) 11.9 /CMM (1.8-8.9); NEUTROPHILS % (AUTO) 82.5 % (43.0-81.0); PLATELET COUNT (AUTO) 266 /CMM (150-450); RED BLOOD CELL COUNT(AUTO) 2.59 MIL/uL (4.0-5.2); WHITE BLOOD COUNT (AUTO) 14.4 K/uL (4.3-11.0)
[2020-01-05 18:39] LABS: CALCIUM, SERUM 7.7 mg/dL (8.5-10.1); CREATININE 0.7 mg/dL (0.6-1.3); POTASSIUM 3.4 mmol/L (3.5-5.1)
[2020-01-05 18:43] LABS: MAGNESIUM 1.5 mg/dL (1.8-2.4); PHOSPHORUS 3.3 mg/dL (2.5-4.9)
--- NOTE | 2020-01-05 18:50 | NUR ---
ms rn on bed,no distress noted.
[2020-01-05] MEDS ORDERED: CLOTRIMAZOLE 1% 15 GM TUBE TP SCH (19:30)
[2020-01-05 20:00] VITALS: BP 113/66
--- NOTE | 2020-01-05 20:35 | NUR ---
MS/TELE/RN PATIENT IS ON BED AWAKE, ALERT, ORIENTED, COMFORTABLE, WITH TOLERABLE PAIN LEVEL AT THIS TIME 01/16, NO DISTRESS NOTED, CALL LIGHT IN REACH. WILL MONITOR.
[2020-01-05] MEDS: VANCOMYCIN 1 GM in IV D5W 250 ML IV SCH (20:49)
[2020-01-05] MEDS: ZOLPIDEM TARTRATE 5 MG TABLET PO PRN (22:46)
[2020-01-06] MEDS: KETOROLAC TROMETHAMINE INJ 30 MG/ML VIAL IV PRN ×4 (00:49→23:33)
[2020-01-06 01:39] LABS: URINE SODIUM, RANDOM 30 mmol/l (40-220)
[2020-01-06 01:54] LABS: OSMOLALITY,URINE 159 mOS/kg (340-1090)
--- NOTE | 2020-01-06 02:20 | NUR ---
MS/TELE/RN PATIENT IS SLEEPING AT THIS TIME, APPEAR COMFORTABLE, NO SIGNS OF DISTRESS NOTED, CALL LIGHT IN REACH. WILL CONTINUE TO MONITOR.
[2020-01-06] MEDS: VANCOMYCIN 1 GM in IV D5W 250 ML IV SCH ×3 (04:44→21:36)
[2020-01-06] MEDS: ACETAMINOPHEN 325 MG TABLET PO PRN ×3 (04:45→19:51)
--- NOTE | 2020-01-06 06:18 | NUR ---
MS/TELE/RN PATIENT IS AWAKE, ALERT, ORIENTED, COMFORTABLE, NO DISTRESS NOTED,CALL LIGHT IN REACH, ALL NEEDS ATTENDED AT THIS TIME, WILL CONTINUE TO MONITOR.
--- NOTE | 2020-01-06 07:40 | NUR ---
ELECTRIC ARC FURNACE OPERATOR OPENING NOTES RECEIVED PATIENT IN BED, AWAKE, A/O X3. PATIENT ON ROOM AIR, BREATHING IS EVEN AND UNLABORED. NO COMPLAINS OF PAIN AT THIS TIME. L WRIST IV ACCESS G # 18 PRESENT AND INTACT; FLUSHING WELL. SITTER PRESENT AT BEDSIDE. SAFETY PRECAUTIONS IN PLACE; BED IN LOW POSITION AND LOCKED, RAILS UP X2, CALL LIGHT WITHIN REACH. WILL CONTINUE TO MONITOR PATIENT. Addendum: 01/06/20 at 0744 by FLASH SUAREZ RN WRONG PATIENT
--- NOTE | 2020-01-06 07:45 | NUR ---
MS RN OPENING NOTES RECEIVED PATIENT IN BED, IN AND OUT OF SLEEP, A/O X3. PATIENT ON ROOM AIR; BREATHING IS EVEN AND UNLABORED. NO COMPLAINS OF PAIN AT THIS TIME. MIDLINE IN NAOMI IS INTACT AND FLUSHING WELL. SAFETY PRECAUTIONS IN PLACE; BED IN LOW POSITION AND LOCKED, RAILS UP X2, CALL LIGHT WITHIN REACH. WILL CONTINUE TO MONITOR PATIENT.
[2020-01-06 08:00] VITALS: BP 122/81
--- NOTE | 2020-01-06 08:22 | NUR ---
MS RN NOTES PATIENT IN PAIN, REQUESTING FOR PAIN MEDICATION. PRN PAIN MEDICATION ADMINISTERED. WILL REASSESS.
[2020-01-06 08:53] LABS: BASOPHILS # (AUTO) 0.1 /CMM (0.0-0.2); EOSINOPHILS % (AUTO) 1.2 % (0.0-6.0); HEMATOCRIT 26 % (33-45); HEMOGLOBIN 8.2 g/dL (11.5-14.8); LYMPHOCYTES # (AUTO) 1.2 /CMM (0.8-4.8); LYMPHOCYTES % (AUTO) 8.4 % (20.0-44.0); MEAN CORPUSCULAR HGB CONC 32 g/dl (31.0-36.0); MEAN CORPUSCULAR VOLUME 95 fL (82-100); MONOCYTES # (AUTO) 0.9 /CMM (0.1-1.30); MONOCYTES % (AUTO) 6.2 % (2.0-12.0); NEUTROPHILS # (AUTO) 12.1 /CMM (1.8-8.9); NEUTROPHILS % (AUTO) 83.2 % (43.0-81.0); PLATELET COUNT (AUTO) 291 /CMM (150-450); RED BLOOD CELL COUNT(AUTO) 2.73 MIL/uL (4.0-5.2); WHITE BLOOD COUNT (AUTO) 14.5 K/uL (4.3-11.0)
[2020-01-06] MEDS: FOLIC ACID 1 MG TABLET PO SCH (08:58)
[2020-01-06] MEDS: METOPROLOL TARTRATE 25 MG TABLET PO SCH ×2 (08:58→16:59)
[2020-01-06] MEDS: FAMOTIDINE (20 MG) 20 MG TABLET PO SCH (08:58)
[2020-01-06] MEDS: ASCORBIC ACID 500 MG TABLET PO SCH ×2 (08:58→16:59)
[2020-01-06] MEDS: FUROSEMIDE 40 MG TABLET PO SCH ×2 (08:58→16:59)
[2020-01-06] MEDS: ZINC SULFATE 220 MG CAPSULE PO SCH (08:58)
[2020-01-06] MEDS: HYDROGEL DRESSING 90 GM TUBE TP SCH ×2 (09:06→09:07)
[2020-01-06] MEDS: CLOTRIMAZOLE 1% 15 GM TUBE TP SCH ×2 (09:07→16:59)
[2020-01-06] MEDS: Z GUARD REMEDY 2 OZ OINT TP SCH (09:07)
[2020-01-06 09:24] LABS: CALCIUM, SERUM 8.2 mg/dL (8.5-10.1); CREATININE 0.5 mg/dL (0.6-1.3); MAGNESIUM 1.7 mg/dL (1.8-2.4); PHOSPHORUS 3.6 mg/dL (2.5-4.9); POTASSIUM 3.4 mmol/L (3.5-5.1)
[2020-01-06 09:34] LABS: THYROID STIMULATING HORMONE 4.153 uIU/mL (0.358-3.74); URIC ACID 3.4 mg/dL (2.6-7.2)
--- NOTE | 2020-01-06 12:50 | NUR ---
MS RN NOTES PATIENT IN PAIN, REQUESTING FOR PAIN MEDICATION. PRN TYLENOL MEDICATION ADMINISTERED. WILL REASSESS.
[2020-01-06 16:00] VITALS: BP 110/58
--- NOTE | 2020-01-06 16:03 | NUR ---
MS RN NOTES PATIENT IN PAIN, REQUESTING FOR PAIN MEDICATION. PRN PAIN MEDICATION TORADOL ADMINISTERED. WASN'T ABLE TO PARTIAL WASTE. PHARMACY AND CHARGE NURSE NOTIFIED. WILL REASSESS.
--- NOTE | 2020-01-06 18:42 | NUR ---
MS RN CLOSING NOTES PATIENT IN BED AT THIS TIME, A/O X3AND WATCHING TV. PATIENT ON ROOM AIR; BREATHING IS EVEN AND UNLABORED. THROUGHOUT THE DAY GAVE PATIENT PRN PAIN MEDICATION. MIDLINE IN NAOMI IS INTACT AND FLUSHING WELL. ALL NEEDS ATTENDED TO THROUGHOUT THE DAY. SAFETY PRECAUTIONS IN PLACE; BED IN LOW POSITION AND LOCKED, RAILS UP X2, CALL LIGHT WITHIN REACH. WILL ENDORSE TO NIGHTSHIFT NURSE.
--- NOTE | 2020-01-06 19:57 | NUR ---
MS/TELE/RN C/O PAIN IN THE CHEST REQUESTED FOR TYLENOL, TYLENOL 650 MG PO WAS GIVEN ORDERED. WILL MONITOR.
[2020-01-06 20:00] VITALS: BP 110/58
[2020-01-06] MEDS ORDERED: POTASSIUM CHLORIDE 20 MEQ TAB.PRT.SR PO ONE (21:00)
[2020-01-06] MEDS ORDERED: Magnesium 1GM/D5W 100ML PREMIX PIGGYBACK IV ONE (21:00)
[2020-01-06] MEDS: ZOLPIDEM TARTRATE 5 MG TABLET PO PRN (23:55)
[2020-01-07] MEDS ORDERED: ALBUTEROL FS 2.5 MG/3 ML VIAL.NEB NEB PRN (01:30)
[2020-01-07] MEDS: ACETAMINOPHEN 325 MG TABLET PO PRN ×3 (03:56→23:08)
[2020-01-07] MEDS: VANCOMYCIN 1 GM in IV D5W 250 ML IV SCH ×3 (05:18→21:52)
[2020-01-07] MEDS: KETOROLAC TROMETHAMINE INJ 30 MG/ML VIAL IV PRN ×3 (06:33→18:30)
--- NOTE | 2020-01-07 06:55 | NUR ---
MS/TELE/RN PATIENT IS AWAKE, COMFORTABLE, NO DISTRESS NOTED, CALL LIGHT IN REACH, ALL NEEDS ATTENDED AT THIS TIME, WILL CONTINUE TO MONITOR.
--- NOTE | 2020-01-07 07:30 | NUR ---
MS/RN - Assessment Patient is awake, A/O x 4, no complaints overnight, afebrile, uses supplemental oxygen 2lpm via NC, saturating well, no SOB/respiratory distress, denies pain at this time. Will do wound care on sacral area. Labs reviewed, no critical results but h/h dropped to 7.7/, no active bleeding seen. Contact precautions maintained for MRSA blood. Will continue with current medical management.
[2020-01-07 08:00] VITALS: BP 109/74
[2020-01-07 08:01] LABS: CALCIUM, SERUM 7.9 mg/dL (8.5-10.1); CREATININE 0.6 mg/dL (0.6-1.3); MAGNESIUM 1.8 mg/dL (1.8-2.4); PHOSPHORUS 3.7 mg/dL (2.5-4.9); POTASSIUM 3.8 mmol/L (3.5-5.1)
[2020-01-07 08:27] LABS: BASOPHILS # (AUTO) 0.1 /CMM (0.0-0.2); BASOPHILS % (AUTO) 0.6 % (0.0-2.0); HEMATOCRIT 25 % (33-45); HEMOGLOBIN 7.7 g/dL (11.5-14.8); LYMPHOCYTES # (AUTO) 1.1 /CMM (0.8-4.8); LYMPHOCYTES % (AUTO) 7.5 % (20.0-44.0); MEAN CORPUSCULAR HGB CONC 32 g/dl (31.0-36.0); MEAN CORPUSCULAR VOLUME 96 fL (82-100); MONOCYTES # (AUTO) 0.9 /CMM (0.1-1.30); NEUTROPHILS # (AUTO) 12.6 /CMM (1.8-8.9); NEUTROPHILS % (AUTO) 84.9 % (43.0-81.0); PLATELET COUNT (AUTO) 273 /CMM (150-450); RED BLOOD CELL COUNT(AUTO) 2.56 MIL/uL (4.0-5.2); WHITE BLOOD COUNT (AUTO) 14.8 K/uL (4.3-11.0)
[2020-01-07] MEDS: ASCORBIC ACID 500 MG TABLET PO SCH ×2 (08:28→16:20)
[2020-01-07] MEDS: ZINC SULFATE 220 MG CAPSULE PO SCH (08:28)
[2020-01-07] MEDS: FAMOTIDINE (20 MG) 20 MG TABLET PO SCH (08:28)
[2020-01-07] MEDS: FOLIC ACID 1 MG TABLET PO SCH (08:28)
[2020-01-07] MEDS: FUROSEMIDE 40 MG TABLET PO SCH ×2 (08:28→16:20)
[2020-01-07] MEDS: METOPROLOL TARTRATE 25 MG TABLET PO SCH ×2 (08:30→16:20)
[2020-01-07] MEDS: HYDROGEL DRESSING 90 GM TUBE TP SCH ×2 (08:31)
[2020-01-07] MEDS: Z GUARD REMEDY 2 OZ OINT TP SCH (08:32)
[2020-01-07] MEDS: CLOTRIMAZOLE 1% 15 GM TUBE TP SCH ×2 (08:33→16:21)
[2020-01-07] MEDS: ONDANSETRON HCL/PF 4 MG/2 ML VIAL IVP PRN (09:16)
[2020-01-07] MEDS ORDERED: KETOROLAC TROMETHAMINE INJ 30 MG/ML VIAL IV PRN (13:00)
[2020-01-07 16:00] VITALS: BP 117/74
--- NOTE | 2020-01-07 18:40 | NUR ---
MS/RN - End of shift notes No significant change in condition seen, surgical incision site pain controlled with Toradol 30 mg IVP q6 PRN. Awaiting for placement. Will continue with current plan of care.
--- NOTE | 2020-01-07 19:45 | NUR ---
blankmaker initial notes seen pt in bed awake and alert watching TV at this time without any distress noted. denies any pain or any discomfort. encourage her to used the call light system if she needs some helped or needs assistance. kept her comfortable at all times. will continue monitoring. place call light at reach.
[2020-01-07 20:00] VITALS: BP 115/70
[2020-01-08] MEDS: KETOROLAC TROMETHAMINE INJ 30 MG/ML VIAL IV PRN ×5 (00:30→18:51)
[2020-01-08] MEDS: VANCOMYCIN 1 GM in IV D5W 250 ML IV SCH ×2 (06:08→13:00)
--- NOTE | 2020-01-08 07:40 | NUR ---
ms professional services consultant closing notes pt awake and alert watching tv at this time. all due meds given and all need met. Stable tao the night except asking for her pain medication no time. no signs of any acute distress noted. kept her warm and comfortable at all times. endorse.
[2020-01-08 08:00] VITALS: BP 110/78
--- NOTE | 2020-01-08 08:00 | NUR ---
MS RN OPENING NOTES RECEIVED PATIENT IN BED, AWAKE ALERT AND ORIENTED X3. PATIENT ON ROOM AIR; BREATHING IS EVEN AND UNLABORED. NO COMPLAINS OF PAIN AT THIS TIME. NO CARDIAC OR RESP DISTRESS NOTED. IV ACCESS NOTED ON MIDLINE IN NAOMI IS INTACT AND PATENT AND FLUSHING WELL. SAFETY PRECAUTIONS IN PLACE; BED IN LOW POSITION AND LOCKED, RAILS UP X2, CALL LIGHT WITHIN REACH. WILL CONTINUE TO MONITOR PATIENT.
[2020-01-08] MEDS: FAMOTIDINE (20 MG) 20 MG TABLET PO SCH (08:47)
[2020-01-08] MEDS: FUROSEMIDE 40 MG TABLET PO SCH ×2 (08:47→16:43)
[2020-01-08] MEDS: ASCORBIC ACID 500 MG TABLET PO SCH ×2 (08:47→16:43)
[2020-01-08] MEDS: ZINC SULFATE 220 MG CAPSULE PO SCH (08:47)
[2020-01-08] MEDS: FOLIC ACID 1 MG TABLET PO SCH (08:47)
[2020-01-08] MEDS: HYDROGEL DRESSING 90 GM TUBE TP SCH ×2 (08:48)
[2020-01-08] MEDS: METOPROLOL TARTRATE 25 MG TABLET PO SCH ×2 (08:48→16:43)
[2020-01-08] MEDS: CLOTRIMAZOLE 1% 15 GM TUBE TP SCH ×2 (08:48→16:43)
[2020-01-08] MEDS: Z GUARD REMEDY 2 OZ OINT TP SCH (08:49)
[2020-01-08] MEDS: ONDANSETRON HCL/PF 4 MG/2 ML VIAL IVP PRN (08:55)
[2020-01-08 11:34] LABS: BASOPHILS # (AUTO) 0.1 /CMM (0.0-0.2); BASOPHILS % (AUTO) 0.7 % (0.0-2.0); CALCIUM, SERUM 7.7 mg/dL (8.5-10.1); CREATININE 0.6 mg/dL (0.6-1.3); EOSINOPHILS % (AUTO) 1.2 % (0.0-6.0); HEMATOCRIT 24 % (33-45); HEMOGLOBIN 7.9 g/dL (11.5-14.8); LYMPHOCYTES # (AUTO) 1.1 /CMM (0.8-4.8); LYMPHOCYTES % (AUTO) 7.8 % (20.0-44.0); MAGNESIUM 1.6 mg/dL (1.8-2.4); MEAN CORPUSCULAR HGB CONC 32 g/dl (31.0-36.0); MEAN CORPUSCULAR VOLUME 96 fL (82-100); MONOCYTES # (AUTO) 0.7 /CMM (0.1-1.30); MONOCYTES % (AUTO) 5.5 % (2.0-12.0); NEUTROPHILS # (AUTO) 11.4 /CMM (1.8-8.9); NEUTROPHILS % (AUTO) 84.8 % (43.0-81.0); PHOSPHORUS 3.7 mg/dL (2.5-4.9); PLATELET COUNT (AUTO) 270 /CMM (150-450); POTASSIUM 3.5 mmol/L (3.5-5.1); RED BLOOD CELL COUNT(AUTO) 2.55 MIL/uL (4.0-5.2); WHITE BLOOD COUNT (AUTO) 13.4 K/uL (4.3-11.0)
[2020-01-08] MEDS: Magnesium 1GM/D5W 100ML PREMIX 100 ML IV SCH ×2 (12:10→13:20)
[2020-01-08] MEDS: POTASSIUM CHLORIDE 20 MEQ TAB.PRT.SR PO SCH (12:12)
--- NOTE | 2020-01-08 13:21 | NUR ---
VANCO TROUGH LEVELS VANCO TROUGH LEVELS AT 47. NOTIFIED PHARMACY. PER PHARMACY HOLD 1PM DOSE.
[2020-01-08 16:00] VITALS: BP 111/65
[2020-01-08] MEDS: HYDROCODONE/APAP 5/325MG 1 EACH TABLET PO PRN ×2 (16:46→21:29)
--- NOTE | 2020-01-08 18:02 | NUR ---
MS RN CLOSING NOTES PATIENT IN BED, AWAKE ALERT AND ORIENTED X3. PATIENT ON ROOM AIR; BREATHING IS EVEN AND UNLABORED. NO COMPLAINS OF PAIN OR DISCOMFORT AT THIS TIME. PT PAIN MANAGED THROUGHOUT THE SHIFT WITH TORADOL PRN AND NORCO PRN. NO CARDIAC OR RESP DISTRESS NOTED. IV ACCESS NOTED ON MIDLINE IN NAOMI IS INTACT AND PATENT AND FLUSHING WELL. SAFETY PRECAUTIONS IN PLACE; BED IN LOW POSITION AND LOCKED, RAILS UP X2, CALL LIGHT WITHIN REACH. WILL ENDORSE TO NEXT SHIFT.
--- NOTE | 2020-01-08 19:15 | NUR ---
MS RN PM OPENING NOTES REPORT RECIEVED FROM SATYA ALDRIDGE PATIENT IN BED, AWAKE ALERT AND ORIENTED X3. PATIENT ON ROOM AIR; BREATHING IS EVEN AND UNLABORED. REVIEWED PAIN MANAGEMENT PLAN WITH PATIENT. NO CARDIAC OR RESP DISTRESS NOTED. IV ACCESS NOTED ON MIDLINE IN NAOMI IS INTACT AND PATENT AND FLUSHING WELL. SAFETY PRECAUTIONS IN PLACE; BED IN LOW POSITION AND LOCKED, RAILS UP X2, CALL LIGHT WITHIN REACH. REVIEWED POC PT VERBALIZED UNDERSTANDING.
[2020-01-08 20:00] VITALS: BP 107/63
[2020-01-09] MEDS: KETOROLAC TROMETHAMINE INJ 30 MG/ML VIAL IV PRN ×4 (00:43→18:36)
[2020-01-09] MEDS: ZOLPIDEM TARTRATE 5 MG TABLET PO PRN (00:43)
[2020-01-09 07:12] LABS: BASOPHILS # (AUTO) 0.1 /CMM (0.0-0.2); BASOPHILS % (AUTO) 0.7 % (0.0-2.0); EOSINOPHILS % (AUTO) 1.2 % (0.0-6.0); HEMATOCRIT 24 % (33-45); HEMOGLOBIN 7.5 g/dL (11.5-14.8); LYMPHOCYTES # (AUTO) 1.2 /CMM (0.8-4.8); LYMPHOCYTES % (AUTO) 8.2 % (20.0-44.0); MEAN CORPUSCULAR HGB CONC 32 g/dl (31.0-36.0); MEAN CORPUSCULAR VOLUME 95 fL (82-100); MONOCYTES % (AUTO) 7.1 % (2.0-12.0); NEUTROPHILS # (AUTO) 12.1 /CMM (1.8-8.9); NEUTROPHILS % (AUTO) 82.8 % (43.0-81.0); PLATELET COUNT (AUTO) 292 /CMM (150-450); WHITE BLOOD COUNT (AUTO) 14.6 K/uL (4.3-11.0)
--- NOTE | 2020-01-09 07:22 | NUR ---
MS/RN OPENING NOTES RECEIVED PATIENT IN BED, AWAKE ALERT AND ORIENTED X3. PATIENT ON ROOM AIR; BREATHING IS EVEN AND UNLABORED. NO C/O PAIN AT THIS TIME. NO CARDIAC OR RESP DISTRESS NOTED. IV ACCESS NOTED ON MIDLINE IN NAOMI IS INTACT AND PATENT AND FLUSHING WELL. SAFETY PRECAUTIONS IN PLACE; BED IN LOW POSITION AND LOCKED, RAILS UP X2, CALL LIGHT WITHIN REACH. WILL CONTINUE TO MONITOR.
[2020-01-09 07:35] LABS: CALCIUM, SERUM 7.9 mg/dL (8.5-10.1); CREATININE 0.6 mg/dL (0.6-1.3); POTASSIUM 3.7 mmol/L (3.5-5.1)
[2020-01-09 08:00] VITALS: BP 116/75
[2020-01-09] MEDS: FAMOTIDINE (20 MG) 20 MG TABLET PO SCH (08:32)
[2020-01-09] MEDS: METOPROLOL TARTRATE 25 MG TABLET PO SCH ×2 (08:32→16:35)
[2020-01-09] MEDS: FOLIC ACID 1 MG TABLET PO SCH (08:32)
[2020-01-09] MEDS: ZINC SULFATE 220 MG CAPSULE PO SCH (08:32)
[2020-01-09] MEDS: FUROSEMIDE 40 MG TABLET PO SCH ×2 (08:32→16:32)
[2020-01-09] MEDS: ASCORBIC ACID 500 MG TABLET PO SCH ×2 (08:32→16:30)
[2020-01-09] MEDS: ONDANSETRON HCL/PF 4 MG/2 ML VIAL IVP PRN (08:38)
[2020-01-09] MEDS: VANCOMYCIN 1 GM in IV D5W 250 ML IV SCH ×2 (08:38→21:16)
[2020-01-09] MEDS: CLOTRIMAZOLE 1% 15 GM TUBE TP SCH ×2 (08:52→17:01)
[2020-01-09] MEDS: Z GUARD REMEDY 2 OZ OINT TP SCH (08:52)
[2020-01-09] MEDS: HYDROGEL DRESSING 90 GM TUBE TP SCH ×2 (08:52)
--- NOTE | 2020-01-09 09:17 | NUR ---
INFORMATION SENT:FACESHEET, PROGRESS NOTES 01/07, 24HRS REPORT,DC PLANNING,UR 01/07.PS FOR[phone] FAX SENT BY PETE
[2020-01-09] MEDS: HYDROCODONE/APAP 5/325MG 1 EACH TABLET PO PRN ×2 (11:05→22:55)
[2020-01-09 16:00] VITALS: BP 107/62
--- NOTE | 2020-01-09 16:36 | NUR ---
MS/RN NOTES METOPROLOL 50MG ORAL WITHHELD BP 106/62 P 114 WILL CONTINUE TO MONITOR.
--- NOTE | 2020-01-09 17:46 | NUR ---
MS/RN NOTES PATIENT REFUSED TO CLEAN AND TREAT THE WOUND. EXPLAINED THE RISK AND BENEFITS. PATIENT STILL REFUSED.
--- NOTE | 2020-01-09 18:40 | NUR ---
MS/RN CLOSING NOTES PATIENT IS ALERT AND ORIENTED X4. PATIENT IN NO APPARENT RESPIRATORY DISTRESS NOTED. PATIENT DENIES OF PAIN AT THIS TIME. IV ACCESS AT RIGHT UPPER ARM MIDLINE PATENT AND INTACT. SEEN AND EXAMINED BY MD WITH ORDERS MADE AND CARRIED OUT. ALL DUE MEDS WAS GIVEN. CHECKED PATIENT EVERY 2 HOURS. KEPT PATIENT CLEAN AND DRY THE WHOLE TIME. BED IN LOWEST POSITION AND LOCKED. SIDE RAILS UP X 2. CALL LIGHT WITH IN REACH. WILL ENDORSED TO BULLET LUBRICANT MIXER FOR VERONICA.
--- NOTE | 2020-01-09 19:20 | NUR ---
MS RN PT IN BED WATCHING TV A/O X 3 STABLE AND NOT IN DISTRESS, SAFETY MEASURES AT ALL TIMES. WILL CONT TO MONITOR
[2020-01-09 20:00] VITALS: BP 112/63
[2020-01-09] MEDS: ACETAMINOPHEN 325 MG TABLET PO PRN (21:14)
[2020-01-10] MEDS: KETOROLAC TROMETHAMINE INJ 30 MG/ML VIAL IV PRN ×4 (01:36→20:20)
[2020-01-10] MEDS: HYDROCODONE/APAP 5/325MG 1 EACH TABLET PO PRN ×3 (04:55→17:56)
--- NOTE | 2020-01-10 05:56 | NUR ---
MS RN NO SIGNIFICANT CHANGES, PT A/O X 4, MONITORED FOR PAIN AND ACCORDINGLY, NEEDS ATTENDED AND ANTICIPATED, KEPT CLEAN, DRY AND COMFORTABLE AT ALL TIMES, NO S/S OF DISTRESS, ASSISTED PT REPOSITION EVERY 2 HOURS. AM CARE RENDERED. SAFETY MEASURES AT ALL TIMES. ENDORSE TO NEXT SHIFT POC.
--- NOTE | 2020-01-10 06:31 | NUR ---
PT WANTED TO DRAW BLOOD LATER DESPITE EXPLAINING RISKS AND BENEFITS WILL ENDORSE
[2020-01-10 08:00] VITALS: BP 121/71
[2020-01-10] MEDS: ASCORBIC ACID 500 MG TABLET PO SCH ×2 (08:14→16:37)
[2020-01-10] MEDS: FAMOTIDINE (20 MG) 20 MG TABLET PO SCH (08:14)
[2020-01-10] MEDS: ZINC SULFATE 220 MG CAPSULE PO SCH (08:14)
[2020-01-10] MEDS: VANCOMYCIN 1 GM in IV D5W 250 ML IV SCH ×2 (08:14→21:07)
[2020-01-10] MEDS: FUROSEMIDE 40 MG TABLET PO SCH ×2 (08:14→16:37)
[2020-01-10] MEDS: METOPROLOL TARTRATE 25 MG TABLET PO SCH ×2 (08:15→16:37)
[2020-01-10] MEDS: HYDROGEL DRESSING 90 GM TUBE TP SCH ×2 (08:24)
[2020-01-10] MEDS: CLOTRIMAZOLE 1% 15 GM TUBE TP SCH ×2 (08:25→16:40)
[2020-01-10] MEDS: Z GUARD REMEDY 2 OZ OINT TP SCH (08:25)
[2020-01-10] MEDS: FOLIC ACID 1 MG TABLET PO SCH (09:11)
[2020-01-10 11:24] LABS: BASOPHILS # (AUTO) 0.1 /CMM (0.0-0.2); BASOPHILS % (AUTO) 1.1 % (0.0-2.0); EOSINOPHILS % (AUTO) 1.1 % (0.0-6.0); HEMATOCRIT 23 % (33-45); HEMOGLOBIN 7.4 g/dL (11.5-14.8); LYMPHOCYTES # (AUTO) 0.8 /CMM (0.8-4.8); MEAN CORPUSCULAR HGB CONC 32 g/dl (31.0-36.0); MEAN CORPUSCULAR VOLUME 94 fL (82-100); MONOCYTES # (AUTO) 0.8 /CMM (0.1-1.30); MONOCYTES % (AUTO) 7.1 % (2.0-12.0); NEUTROPHILS # (AUTO) 9.3 /CMM (1.8-8.9); NEUTROPHILS % (AUTO) 83.7 % (43.0-81.0); PLATELET COUNT (AUTO) 241 /CMM (150-450); RED BLOOD CELL COUNT(AUTO) 2.45 MIL/uL (4.0-5.2); WHITE BLOOD COUNT (AUTO) 11.1 K/uL (4.3-11.0)
[2020-01-10 11:58] LABS: CALCIUM, SERUM 7.8 mg/dL (8.5-10.1); CREATININE 0.6 mg/dL (0.6-1.3); MAGNESIUM 1.7 mg/dL (1.8-2.4); PHOSPHORUS 3.7 mg/dL (2.5-4.9); POTASSIUM 3.5 mmol/L (3.5-5.1)
[2020-01-10 16:00] VITALS: BP 115/60
--- NOTE | 2020-01-10 18:35 | NUR ---
PATIENT IS ALERT AND ORIENTED X4. NO RESPIRATORY DISTRESS NOTED. PRN PAIN MEDICATION ADMINISTRATED ORDERED. IV ACCESS TO THR RIGHT UPPER ARM MIDLINE INTACT PATENT FLUSHING WELL. PATIENT KEPT COMFORTABLE . BED IN LOWEST POSITION AND LOCKED. SIDE RAILS UP X 2. CALL LIGHT WITHIN REACH. WILL ENDORSED TO NEXT SHIFT FOR VERONICA.
--- NOTE | 2020-01-10 19:44 | NUR ---
MS RN OPENING NOTES PATIENT RECEIVED RESTING IN BED A/O X4. ON 2L OF O2 WITH BREATHING EVEN AND UNLABORED, NO SOB NOTED. NO SIGNS OF ACUTE DISTRESS. NO COMPLAINTS OF PAIN OR DISCOMFORT AT THE MOMENT. MIDLINE LOCATED ON NAOMI H/L. SAFETY PRECAUTIONS IN PLACE WITH BED IN LOWEST POSITION, CALL LIGHT WITHIN REACH, BREAKS ON, SIDE RAILS UP. WILL CONTINUE TO MONITOR THROUGHOUT THE SHIFT.
[2020-01-10 20:00] VITALS: BP 154/76
--- NOTE | 2020-01-10 21:22 | NUR ---
MS RN NOTES PATIENT TEMP OF 101, COOLING MEASURES DONE. WILL CONTINUE TO MONITOR.
--- NOTE | 2020-01-11 | NUR ---
MS RN NOTES PATIENT TEMP LOWERED TO 100 WILL CONTINUE TO MONITOR.
[2020-01-11] MEDS: HYDROCODONE/APAP 5/325MG 1 EACH TABLET PO PRN ×3 (00:37→21:37)
[2020-01-11] MEDS: KETOROLAC TROMETHAMINE INJ 30 MG/ML VIAL IV PRN ×2 (05:05→11:52)
[2020-01-11] MEDS: ACETAMINOPHEN 325 MG TABLET PO PRN ×2 (05:58→16:12)
--- NOTE | 2020-01-11 06:30 | NUR ---
MS RN NOTES PRN TYLENOL ADMINISTERED, PER PATIENT REQUEST AND FOR TEMPERATURE. WILL CONTINUE TO MONITOR.
--- NOTE | 2020-01-11 06:39 | NUR ---
MS RN CLOSING NOTES PATIENT RESTING IN BED A/O X4. ON 2L OF O2 WITH BREATHING EVEN AND UNLABORED, NO SOB NOTED. NO SIGNS OF ACUTE DISTRESS. NO COMPLAINTS OF PAIN OR DISCOMFORT AT THE MOMENT. MIDLINE LOCATED ON NAOMI H/L. SAFETY PRECAUTIONS IN PLACE WITH BED IN LOWEST POSITION, CALL LIGHT WITHIN REACH, BREAKS ON, SIDE RAILS UP. ALL NEEDS ATTENDED TO THROUGHOUT THE NIGHT, PATIENT WAS KEPT CLEAN AND DRY. WILL ENDORSE TO ONCOMING SHIFT ABOUT VERONICA.
[2020-01-11 07:12] LABS: CALCIUM, SERUM 7.7 mg/dL (8.5-10.1); CREATININE 0.7 mg/dL (0.6-1.3); POTASSIUM 3.3 mmol/L (3.5-5.1)
[2020-01-11 08:00] VITALS: BP 157/78
--- NOTE | 2020-01-11 08:37 | NUR ---
PATIENT A&0 X4. PATIENT DENIES PAIN. PATIENT RESTING IN BED COMFORTABLY. BED IN LOWEST POSITION. CALL LIGHT IN REACH. WILL CONTINUE TO MONITOR PATIENT THROUGHOUT SHIFT.
[2020-01-11] MEDS: CLOTRIMAZOLE 1% 15 GM TUBE TP SCH ×2 (09:00→17:00)
[2020-01-11] MEDS: HYDROGEL DRESSING 90 GM TUBE TP SCH ×2 (09:00)
[2020-01-11] MEDS: Z GUARD REMEDY 2 OZ OINT TP SCH (09:00)
[2020-01-11] MEDS: VANCOMYCIN 1 GM in IV D5W 250 ML IV SCH ×2 (09:33→21:07)
[2020-01-11] MEDS: FAMOTIDINE (20 MG) 20 MG TABLET PO SCH (09:33)
[2020-01-11] MEDS: ZINC SULFATE 220 MG CAPSULE PO SCH (09:33)
[2020-01-11] MEDS: FUROSEMIDE 40 MG TABLET PO SCH ×2 (09:34→17:00)
[2020-01-11] MEDS: ASCORBIC ACID 500 MG TABLET PO SCH ×2 (09:34→17:00)
[2020-01-11] MEDS: METOPROLOL TARTRATE 25 MG TABLET PO SCH ×2 (09:34→17:00)
[2020-01-11] MEDS: FOLIC ACID 1 MG TABLET PO SCH (09:34)
[2020-01-11] MEDS ORDERED: POTASSIUM CHLORIDE 20 MEQ TAB.PRT.SR PO SCH (11:00)
[2020-01-11 16:00] VITALS: BP 118/78
--- NOTE | 2020-01-11 19:45 | NUR ---
RN NOTES RECEIVED PATIENT RESTING IN BED ALERT / ORIENTED X4. ON 2L OF O2 WITH BREATHING EVEN AND UNLABORED, NO SOB NOTED. NO SIGNS OF ACUTE DISTRESS. NO COMPLAINTS OF PAIN OR DISCOMFORT AT THIS TIME. MIDLINE LOCATED ON NAOMI S/L. SAFETY MEASURES IN PLACE WITH BED IN LOWEST POSITION, CALL LIGHT WITHIN EASY REACH, BREAKS ON, SIDE RAILS UP. WILL CONTINUE TO MONITOR ACCORDINGLY.
[2020-01-11 20:21] VITALS: BP 112/70
[2020-01-11 20:38] VITALS: BP 112/70
[2020-01-12] MEDS: KETOROLAC TROMETHAMINE INJ 30 MG/ML VIAL IV PRN ×2 (00:44→10:50)
[2020-01-12 03:42] LABS: APPEARANCE,URINE CLEAR (CLEAR); BILIRUBIN,URINE NEGATIVE (NEGATIVE); BLOOD, URINE NEGATIVE Ery/uL (NEGATIVE); COLOR,URINE YELLOW (YELLOW); KETONES,URINE NEGATIVE (NEGATIVE); LEUKOCYTE ESTERASE ,URINE TRACE (NEGATIVE); NITRITE, URINE NEGATIVE (NEGATIVE); PROTEIN,URINE NEGATIVE (NEGATIVE); UGLUCOSE NEGATIVE (NEGATIVE); UROBILINOGEN,URINE 0.2 EU/dL (0.2)
[2020-01-12 03:51] LABS: BACTERIA,URINE Few /HPF (None Seen); RBC,URINE 0-2 /HPF (0-2); SQUAMOUS EPITHELIAL CELL,UR Few /HPF (None Seen); WBC,URINE 21-50 /HPF (0-3)
[2020-01-12] MEDS: HYDROCODONE/APAP 5/325MG 1 EACH TABLET PO PRN ×2 (05:05→23:09)
--- NOTE | 2020-01-12 07:01 | NUR ---
RN NOTES ALL NEEDS ATTENDED, SAFETY MEASURES IN PLACE, WILL ENDORSE TO AM NURSE FOR CONTINUITY OF CARE.
[2020-01-12 08:00] VITALS: BP 122/73
[2020-01-12] MEDS: CLOTRIMAZOLE 1% 15 GM TUBE TP SCH ×2 (09:00→17:00)
[2020-01-12] MEDS: VANCOMYCIN 1 GM in IV D5W 250 ML IV SCH ×2 (09:00→21:52)
[2020-01-12] MEDS: METOPROLOL TARTRATE 25 MG TABLET PO SCH ×2 (09:00→16:53)
[2020-01-12] MEDS: FOLIC ACID 1 MG TABLET PO SCH (09:00)
[2020-01-12] MEDS: ASCORBIC ACID 500 MG TABLET PO SCH ×2 (09:00→16:53)
[2020-01-12] MEDS: HYDROGEL DRESSING 90 GM TUBE TP SCH ×2 (09:00)
[2020-01-12] MEDS: FUROSEMIDE 40 MG TABLET PO SCH ×2 (09:00→16:53)
[2020-01-12] MEDS: ZINC SULFATE 220 MG CAPSULE PO SCH (09:00)
[2020-01-12] MEDS: FAMOTIDINE (20 MG) 20 MG TABLET PO SCH (09:00)
[2020-01-12] MEDS: Z GUARD REMEDY 2 OZ OINT TP SCH (09:00)
--- NOTE | 2020-01-12 10:32 | NUR ---
PATIENT IS SLEEPING IN BED. BED IN LOWEST POSITION. CALL LIGHT IN REACH. WILL CONTINUE TO MONITOR PATIENT. PATIENT REFUSED VANCO IV BECAUSE SHE WOULD LIKE TO CONTACT INFECTIOUS DISEASE DOCTOR FIRST. WILL TRY TO GET IN CONTACT WITH INFECTIOUS DISEASE DOCTOR.
[2020-01-12] MEDS: LIDOCAINE 5% (PATCH) 1 EA PATCH TP SCH (11:00)
[2020-01-12] MEDS: POTASSIUM CHLORIDE 20 MEQ TAB.PRT.SR PO SCH ×2 (12:00→13:51)
--- NOTE | 2020-01-12 13:59 | NUR ---
PATIENT DID HER OWN WOUND CARE WITH [facility].
[2020-01-12 16:00] VITALS: BP 104/67
--- NOTE | 2020-01-12 16:09 | NUR ---
DISCHARGE IN PROGRESS TO [facility].
--- NOTE | 2020-01-12 16:25 | NUR ---
PATIENT HAS FEVER. URINE CULTURE STILL PENDING PER LAB. BLOOD CULTURES STILL PENDING PER LAB. PER LAB URINALYSIS IS COMPLETE. PICKING UP COVID SWAB FOR PATIENT FROM LAB. INFECTIOUS CONTROL DOCTOR AT THE BEDSIDE.
--- NOTE | 2020-01-12 16:29 | NUR ---
Kenia Hardin NP informed about ID recommendation and new orders, d/c on hold due to testing for covid.
--- NOTE | 2020-01-12 16:53 | NUR ---
CURRENT TEMPERATURE 99.2.
--- NOTE | 2020-01-12 18:53 | NUR ---
PATIENT IN BED RESTING. NO SIGNS AND SYMPTOMS OF PAIN OR DISTRESS. BED IN LOW POSITION. CALL LIGHT IN REACH. ALL NEEDS MET. WILL GIVE REPORT TO NIGHT NURSE.
--- NOTE | 2020-01-12 19:00 | NUR ---
MS/RN OPENING NOTES: RECEIVED PT. AWAKE IN BED, WATCHING TV. A/O X4. ABLE TO VERBALIZE NEEDS. BED SIDE COMMODE PRESENT. IV ON THE RIGHT UPPER ARM MID LINE. INTACT, PATENT AND FLUSHING WELL. PT. IS REQUESTING FOR MELON JUICE. STILL PENDING FOR COVID-19 TEST RESULTS. SAFETY MEASURES IN PLACE. BED IN LOW, LOCKED POSITION WITH SR UP X2. CALL LIGHT WITHIN REACH. WILL CONTINUE TO MONITOR.
[2020-01-12 20:00] VITALS: BP 107/74
[2020-01-12] MEDS: CEFEPIME 2 GM in IV D5W 100 ML IV SCH (20:18)
[2020-01-12] MEDS: ACETAMINOPHEN 325 MG TABLET PO PRN (20:25)
--- NOTE | 2020-01-12 20:25 | NUR ---
MS/RN NOTES: PT. REQUESTED FOR TYLENOL. PT HAD A FEVER. TEMP OF 101.4. LOWERED ROOM TEMPERATURE. REMOVED BLANKETS AND ADMINISTERED TYLENOL 650MG PO ORDERED. WILL REASSESS TEMP AND CONTINUE MONITORING
[2020-01-12] MEDS ORDERED: CEFEPIME 1 GM in IV NS 0.9% 50 ML IV SCH (21:00)
--- NOTE | 2020-01-12 21:35 | NUR ---
MS/RN NOTES: TRANSFERRED PT. TO ROOM 206 VIA GURNEY. IN STABLE CONDITION. REPORT GIVEN TO OLY CARLOS FOR VERONICA.
--- NOTE | 2020-01-12 21:40 | NUR ---
RN NOTES TRANSFERRED PATIENT FROM 312-2 TO 206-1. BEDSIDE REPORT GIVEN BY OLY RODRIGUEZ. PATIENT IS AWAKE, ALERT ORIENTED X4. IRRITABLE, SAFETY PRECAUTIONS IN PLACE, ASPIRATION PRECAUTION EMPHASIZE, CALL LIGHT WITHIN EASY REACH. ORIENTED TO NEW ROOM AND UNIT. IV AT RIGHT UPPER ARM MIDLINE INTACT PATENT FLUSHING WELL, BUT NO BLOOD RETURN NOTED. ALL NEEDS ANTICIPATED, PROVIDED BEDSIDE COMMODE AND WALKER, BED IN LOW LOCKED POSITION. PLACED ON OXYGEN AT 2LPM VIA NASAL CANNULA SATING 96% - 97%. TEMP. 99.7/ORAL BP118/73, HR 131,RR20, PLACED ON TELE MONITOR READS SR 130s. ALL NEEDS ANTICIPATED. WILL MONITOR ACCORDINGLY.
[2020-01-13] MEDS: ZOLPIDEM TARTRATE 5 MG TABLET PO PRN (01:30)
[2020-01-13] MEDS: CEFEPIME 2 GM in IV D5W 100 ML IV SCH ×3 (04:02→20:01)
[2020-01-13 04:26] VITALS: BP 130/71
[2020-01-13] MEDS: HYDROCODONE/APAP 5/325MG 1 EACH TABLET PO PRN ×4 (04:56→22:32)
[2020-01-13 06:50] VITALS: BP 130/71
--- NOTE | 2020-01-13 06:50 | NUR ---
RN NOTES ALL NEEDS ATTENDED AND MET, RESTING COMFORTABLY AT THIS TIME, SAFETY MEASURES IN PLACE, ASPIRATION PRECAUTION EMPHASIZED, ALL PERSONAL BELONGINGS WITH IN EASY REACH. CALL LIGHT WITH IN REACH. KEEP CLEAN DRY AND COMFORTABLE. TELE MONITOR READS 140s, CHECKED PATIENT, DOZING ON AND OFF, RESPONSIVE. SAFETY PRECAUTIONS MAINTAINED, WILL ENDORSE TO AM NURSE FOR CONTINUITY OF CARE.
[2020-01-13] MEDS: ACETAMINOPHEN 325 MG TABLET PO PRN ×2 (06:55→17:13)
--- NOTE | 2020-01-13 07:30 | NUR ---
ON AIR DIRECTOR NOTES PT IN BED, RESTING, ALERT AND ORIENTED, NO COMPLAINT OF PAIN AT THIS TIME, NOT IN DISTRESS, CALL LIGHT WITHIN REACH, ISOLATION PRECAUTIONS OBSERVED, NEEDS ATTENDED, AMBULATES TO THE BATHROOM WITH SLOW AND STEADY GAIT.
[2020-01-13 08:00] VITALS: BP 116/68
[2020-01-13] MEDS: HYDROGEL DRESSING 90 GM TUBE TP SCH ×2 (09:00→10:41)
[2020-01-13] MEDS: POTASSIUM CHLORIDE 20 MEQ TAB.PRT.SR PO SCH ×3 (09:37→11:00)
[2020-01-13] MEDS: ASCORBIC ACID 500 MG TABLET PO SCH ×2 (09:37→17:12)
[2020-01-13] MEDS: FAMOTIDINE (20 MG) 20 MG TABLET PO SCH (09:37)
[2020-01-13] MEDS: FOLIC ACID 1 MG TABLET PO SCH (09:37)
[2020-01-13] MEDS: ZINC SULFATE 220 MG CAPSULE PO SCH (09:37)
[2020-01-13] MEDS: METOPROLOL TARTRATE 25 MG TABLET PO SCH ×2 (09:43→17:12)
[2020-01-13] MEDS: FUROSEMIDE 40 MG TABLET PO SCH ×2 (09:44→17:12)
[2020-01-13 10:51] LABS: BASOPHILS % (AUTO) 0.6 % (0.0-2.0); EOSINOPHILS % (AUTO) 0.8 % (0.0-6.0); HEMATOCRIT 22 % (33-45); HEMOGLOBIN 7.3 g/dL (11.5-14.8); LYMPHOCYTES # (AUTO) 0.7 /CMM (0.8-4.8); LYMPHOCYTES % (AUTO) 9.6 % (20.0-44.0); MEAN CORPUSCULAR HGB CONC 33 g/dl (31.0-36.0); MEAN CORPUSCULAR VOLUME 92 fL (82-100); MONOCYTES # (AUTO) 0.5 /CMM (0.1-1.30); MONOCYTES % (AUTO) 6.7 % (2.0-12.0); NEUTROPHILS # (AUTO) 6.2 /CMM (1.8-8.9); NEUTROPHILS % (AUTO) 82.3 % (43.0-81.0); PLATELET COUNT (AUTO) 186 /CMM (150-450); RED BLOOD CELL COUNT(AUTO) 2.37 MIL/uL (4.0-5.2); WHITE BLOOD COUNT (AUTO) 7.6 K/uL (4.3-11.0)
[2020-01-13 11:09] LABS: CALCIUM, SERUM 7.9 mg/dL (8.5-10.1); CREATININE 0.6 mg/dL (0.6-1.3); MAGNESIUM 1.5 mg/dL (1.8-2.4); PHOSPHORUS 3.3 mg/dL (2.5-4.9); POTASSIUM 3.5 mmol/L (3.5-5.1)
[2020-01-13] MEDS: CLOTRIMAZOLE 1% 15 GM TUBE TP SCH ×2 (12:14→17:12)
[2020-01-13 12:16] VITALS: BP 115/75
[2020-01-13] MEDS: Z GUARD REMEDY 2 OZ OINT TP SCH (12:22)
[2020-01-13] MEDS ORDERED: POTASSIUM CHLORIDE 20 MEQ TAB.PRT.SR PO ONE (12:30)
[2020-01-13 12:49] LABS: C-REACTIVE PROTEIN 16.3 mg/dL (0.0-0.9)
[2020-01-13] MEDS: LIDOCAINE 5% (PATCH) 1 EA PATCH TP SCH (13:14)
[2020-01-13] MEDS: Magnesium 1GM/D5W 100ML PREMIX 100 ML IV SCH ×2 (14:02→17:12)
[2020-01-13 16:00] VITALS: BP 116/70
[2020-01-13] MEDS ORDERED: VANCOMYCIN 0.75 GM in IV D5W 250 ML IV SCH (17:00)
--- NOTE | 2020-01-13 18:00 | NUR ---
CLINICAL PROJECT ASSISTANT NOTES PT IN BED, AWAKE, ALERT AND ORIENTED, PAIN MEDS GIVEN FOR PAIN MANAGEMENT, NOT IN DISTRESS, CALL LIGHT WITHIN REACH, PM MEDS GIVEN, AMBULATES TO THE BATHROOM AND ABLE TO USE BEDSIDE COMMODE, ALL NEEDS ATTENDED.
[2020-01-13 20:27] VITALS: BP 98/62
[2020-01-13] MEDS: VANCOMYCIN 1.25 GM in IV D5W 250 ML IV SCH (21:50)
--- NOTE | 2020-01-13 22:20 | NUR ---
DRAMATIC ART TEACHER NOTES PT AWAKE & RESPONSIVE. NOT IN ANY DISTRESS. NO SOB NOTED. DENIES ANY PAIN OR DISCOMFORT AT THIS TIME. ON TELE ST @ 110 WITH IV-ML PATENT & INTACT. MONITORED ACCORDINGLY. REPORT GIVEN TO LESLIE ALDRIDGE FOR CONTINUITY OF CARE.
--- NOTE | 2020-01-13 22:30 | NUR ---
NET DEVELOPER CONTRACT NOTES PT TRANSFERRED TO ROOM 306-2
--- NOTE | 2020-01-13 22:32 | NUR ---
RN NOTES ADMINISTERED NORCO 5-325 PER PATIENTS REQUEST. 1 TAB Q6H PRN. WILL CONTINUE TO MONITOR.
--- NOTE | 2020-01-13 22:35 | NUR ---
RN NOTES RECEIVED PATIENT FROM DWIGHT ALDRIDGE WITH BED. PATIENT WAS ORIENTED TO ROOM AND CONTINUED RECEIVING HER VANCOMYCIN. BED IS IN LOWEST LOCKED POSITION WITH SIDE RAILS UP X2. NO SOB/ ACUTE RESPIRATORY DISTRESS NOTED. CALL LIGHT IS WITHIN REACH. WILL CONTINUE TO MONITOR.
[2020-01-14] VITALS: BP_SYST 111; BP_SYST 114; BP_DIAS 71
[2020-01-14] MEDS: ACETAMINOPHEN 325 MG TABLET PO PRN (01:06)
--- NOTE | 2020-01-14 01:13 | NUR ---
RN NOTES PATIENT REFUSED TO CONTINUE VANCOMYCIN 1.25 GM IN D5W 250 ML @ 125 MLS/HR. SHE HAD ABOUT 30MLS LEFT. PATIENT WAS CRYING AND MOANING AND STATED THAT IT HURTS HER TOO MUCH.
[2020-01-14] MEDS: CEFEPIME 2 GM in IV D5W 100 ML IV SCH ×3 (03:09→20:52)
[2020-01-14 04:00] VITALS: BP_SYST 124; BP_SYST 130; BP_DIAS 67; BP_DIAS 78
--- NOTE | 2020-01-14 06:44 | NUR ---
RN CLOSE NOTES PATIENT IS WATCHING TV IN BED. NO COMPLAINTS OF PAIN AT THE MOMENT. NO SOB/ ACUTE RESPIRATORY DISTRESS NOTED. BED IS IN LOWEST LOCKED POSITION WITH SIDE RAILS UP X2, SEMI FOWLERS. CALL LIGHT IS WITHIN REACH. REFUSED TO FINISH VANCO EARLIER HOWEVER WAS ABLE TO TOLERATE MAXIPIME. WILL ENDORSE TO AM NURSE.
--- NOTE | 2020-01-14 07:28 | NUR ---
Tele/RN - Assessment Patient is awake, A/O x 4, no complaints overnight, afebrile, uses supplemental oxygen 2lpm via NC, saturating well, no SOB/respiratory distress, denies pain at this time. Will do wound care on sacral area. Per endorsement patient refused IV Vancomycin, through to be drawn today at 08:00. Lab results are pending, will monitor h/h, no active bleeding seen at this time. Patient tested negative for Covid-19. Contact precautions maintained for MRSA blood. Will continue with current medical management. Addendum: 01/14/20 at 0735 by CURRY HOWE RN Tele shows ST 120s.
[2020-01-14] MEDS: FOLIC ACID 1 MG TABLET PO SCH (08:09)
[2020-01-14] MEDS: FUROSEMIDE 40 MG TABLET PO SCH ×2 (08:09→16:20)
[2020-01-14] MEDS: ZINC SULFATE 220 MG CAPSULE PO SCH (08:09)
[2020-01-14] MEDS: ASCORBIC ACID 500 MG TABLET PO SCH ×2 (08:09→16:20)
[2020-01-14] MEDS: FAMOTIDINE (20 MG) 20 MG TABLET PO SCH (08:09)
[2020-01-14 08:10] VITALS: BP 118/75
[2020-01-14] MEDS: METOPROLOL TARTRATE 25 MG TABLET PO SCH ×2 (08:10→16:20)
[2020-01-14] MEDS: HYDROCODONE/APAP 5/325MG 1 EACH TABLET PO PRN ×2 (08:10→14:10)
[2020-01-14] MEDS: Z GUARD REMEDY 2 OZ OINT TP SCH (08:16)
[2020-01-14] MEDS: CLOTRIMAZOLE 1% 15 GM TUBE TP SCH ×2 (08:16→16:21)
[2020-01-14] MEDS: HYDROGEL DRESSING 90 GM TUBE TP SCH ×2 (08:16)
[2020-01-14] MEDS: VANCOMYCIN 1.25 GM in IV D5W 250 ML IV SCH ×2 (08:16→21:00)
--- NOTE | 2020-01-14 09:30 | NUR ---
MS/RN - S/b Hospitalist Seen and examined by Yulisa Aquino NP with orders, noted and carried out. Hospitalist made aware that patient refused blood draw today and IV Vancomycin infusion.
[2020-01-14] MEDS: ENOXAPARIN SODIUM 40 MG/0.4 ML DISP.SYRIN SQ SCH (09:46)
--- NOTE | 2020-01-14 10:00 | NUR ---
MS/RN - Notes Dr. Adkins made aware that pt refused blood draw and Vancomycin infusion.
[2020-01-14] MEDS: LIDOCAINE 5% (PATCH) 1 EA PATCH TP SCH (11:17)
[2020-01-14 16:00] VITALS: BP 107/62
--- NOTE | 2020-01-14 18:01 | NUR ---
MS/RN - End of shift Notes No significant change in condition seen, chest and back pain controlled with Ina 5/325 mg po q6h PRN. Awaiting for placement. Will continue with current plan of care.
--- NOTE | 2020-01-14 18:10 | NUR ---
MS3: REFUSED LAB DRAWN PT REFUSED LAB DRAW. PT STATED, "NO. I DON'T WANT BLOOD TO BE TAKEN FROM ME FROM MY VEIN. ITS NOT GOING TO WORK. SO STOP ASKING" PT INCREASED AGITATION. EXPLAIN RISKS AND BENEFITS. PT STILL REFUSED X3.
[2020-01-14 22:00] VITALS: BP 108/55
--- NOTE | 2020-01-14 22:23 | NUR ---
MS3 RN NOTES: PT REFUSED VANCO PT REFUSED IV VANCO DUE AT 2100. PT STATED, "NO! I DONT WANT THAT. STOP." EXPLAIN RISKS AND BENEFITS. PT STILL REFUSED X3. CONTINUE TO MONITOR.
--- NOTE | 2020-01-14 23:52 | NUR ---
MS RN: OPENING Patient is awake, A/O x 4, uses supplemental oxygen 2lpm via [place], saturating well, no SOB/respiratory distress, denies pain at this time. Breathing even and unlabored. Pt easily agitated and needy. Per endorsement patient refused IV Vancomycin. Patient tested negative for Covid-19. Contact precautions maintained for MRSA blood. Will continue with current medical management.
[2020-01-15 01:00] VITALS: BP 112/69
[2020-01-15] MEDS: HYDROCODONE/APAP 5/325MG 1 EACH TABLET PO PRN ×3 (01:08→17:17)
--- NOTE | 2020-01-15 01:08 | NUR ---
MS/RN NOTES: PT COMPLAINED OF PAIN LEVEL 8. GENERALIZED, ON HER CHEST AND BACK. ADMINISTERED 5/325MG NORCO PO. TOLERATED WELL. WILL CONTINUE TO MONITOR AND ENDORSE TO PRIMARY NURSE GENOVEVA.
[2020-01-15] MEDS: CEFEPIME 2 GM in IV D5W 100 ML IV SCH ×3 (03:08→20:00)
[2020-01-15 04:00] VITALS: BP 112/69
--- NOTE | 2020-01-15 05:27 | NUR ---
MS3 RN NOTES: PT REFUSED LAB DRAW. PT INCREASED AGITATION. EXPLAIN RISKS AND BENEFITS. PT STILL REFUSED X3. CONTINUE TO MONITOR.
--- NOTE | 2020-01-15 06:28 | NUR ---
MS3 RN CLOSE NOTES PATIENT LYING IN BED AWAKE IS WATCHING TV IN BED. NO COMPLAINTS OF PAIN AT THE MOMENT. NO SOB/ ACUTE RESPIRATORY DISTRESS NOTED. BED IS IN LOWEST LOCKED POSITION WITH SIDE RAILS UP X2, SEMI FOWLERS. CALL LIGHT IS WITHIN REACH. PT REFUSED DRESSING CHANGE WILL ENDORSE TO DAY NURSE.
--- NOTE | 2020-01-15 07:15 | NUR ---
MS RN NOTES PATIENT IN BED ALERT ORIENTED X 4. NO ACUTE DISTRESS NOTED. BREATHING UNLABORED. IV ACCESS PATENT AND INTACT, NO REDNESS OR SWELLING NOTED. SAFETY MEASURES IN PLACE. CALL LIGHT WITHIN REACH. WILL CONTINUE TO MONITOR ACCORDINGLY.
[2020-01-15 08:00] VITALS: BP 118/68
[2020-01-15] MEDS: CLOTRIMAZOLE 1% 15 GM TUBE TP SCH ×2 (09:00→17:18)
[2020-01-15] MEDS: HYDROGEL DRESSING 90 GM TUBE TP SCH ×2 (09:00)
[2020-01-15] MEDS: Z GUARD REMEDY 2 OZ OINT TP SCH (09:00)
[2020-01-15] MEDS: VANCOMYCIN 1.25 GM in IV D5W 250 ML IV SCH (09:00)
[2020-01-15] MEDS: FAMOTIDINE (20 MG) 20 MG TABLET PO SCH (09:20)
[2020-01-15] MEDS: ZINC SULFATE 220 MG CAPSULE PO SCH (09:20)
[2020-01-15] MEDS: FUROSEMIDE 40 MG TABLET PO SCH ×2 (09:20→17:16)
[2020-01-15] MEDS: FOLIC ACID 1 MG TABLET PO SCH (09:20)
[2020-01-15] MEDS: ASCORBIC ACID 500 MG TABLET PO SCH ×2 (09:20→17:16)
[2020-01-15] MEDS: METOPROLOL TARTRATE 25 MG TABLET PO SCH ×2 (09:21→17:16)
[2020-01-15] MEDS: ENOXAPARIN SODIUM 40 MG/0.4 ML DISP.SYRIN SQ SCH (09:23)
--- NOTE | 2020-01-15 10:00 | NUR ---
MS RN NOTES PATIENT SEEN AND EVALUATED BY APPAREL PATTERNMAKER CHATO MAHER, WILVER MADE AWARE THAT PATIENT REFUSED VANCOMYCIN IV AND WOUND CARE.
[2020-01-15] MEDS: LIDOCAINE 5% (PATCH) 1 EA PATCH TP SCH (11:44)
[2020-01-15 13:38] LABS: BASOPHILS # (AUTO) 0.1 /CMM (0.0-0.2); BASOPHILS % (AUTO) 0.7 % (0.0-2.0); EOSINOPHILS % (AUTO) 1.5 % (0.0-6.0); HEMATOCRIT 22 % (33-45); HEMOGLOBIN 7.3 g/dL (11.5-14.8); LYMPHOCYTES # (AUTO) 1.1 /CMM (0.8-4.8); LYMPHOCYTES % (AUTO) 14.4 % (20.0-44.0); MEAN CORPUSCULAR HGB CONC 33 g/dl (31.0-36.0); MEAN CORPUSCULAR VOLUME 91 fL (82-100); MONOCYTES # (AUTO) 0.6 /CMM (0.1-1.30); NEUTROPHILS # (AUTO) 5.9 /CMM (1.8-8.9); NEUTROPHILS % (AUTO) 75.4 % (43.0-81.0); PLATELET COUNT (AUTO) 120 /CMM (150-450); RED BLOOD CELL COUNT(AUTO) 2.46 MIL/uL (4.0-5.2); WHITE BLOOD COUNT (AUTO) 7.8 K/uL (4.3-11.0)
[2020-01-15 13:41] LABS: CREATININE 0.6 mg/dL (0.6-1.3); MAGNESIUM 1.8 mg/dL (1.8-2.4); PHOSPHORUS 2.9 mg/dL (2.5-4.9); POTASSIUM 3.3 mmol/L (3.5-5.1)
[2020-01-15] MEDS ORDERED: POTASSIUM CHLORIDE 20 MEQ TAB.PRT.SR PO SCH (14:30)
[2020-01-15] MEDS ORDERED: POTASSIUM CHLORIDE 20 MEQ POWDER PACKET PO ONE (15:00)
[2020-01-15] MEDS ORDERED: DAPTOMYCIN 500 MG in IV NS 0.9% 50 ML IV SCH (15:30)
[2020-01-15 16:00] VITALS: BP 117/66
--- NOTE | 2020-01-15 19:00 | NUR ---
MS RN NOTES PATIENT IN BED ALERT ORIENTED X 4. NO ACUTE DISTRESS NOTED. BREATHING UNLABORED. IV ACCESS PATENT AND INTACT, NO REDNESS OR SWELLING NOTED. NEEDS ATTENDED AND ANTICIPATED. KEPT CLEAN DRY AND COMFORTABLE.SAFETY MEASURES IN PLACE. CALL LIGHT WITHIN REACH. WILL ENDORSE TO NIGHT NURSE FOR CONTINUITY OF CARE.
[2020-01-15 20:00] VITALS: BP 105/69
--- NOTE | 2020-01-15 20:00 | NUR ---
MS/RN OPENING NOTES RECEIVED PATIENT IN BED, AWAKE, ALERT, ABLE TO VERBALIZE NEEDS, USES COMMODE AND REPORTED THAT ID DR ELKINS WAS AT HER BEDSIDE AND DISCUSSED WITH HER ABOUT SOME ANTIBIOTICS IN REPLACE FOR VANCO. PATIENT REPORTED THAT SHE HAVE ASKED IF THERE WILL ANTIBIOTIC TO BE ADMINISTERED FOR TONIGHT ANAD THAT SHE WAS INFORMED THERE WONT BE AT 2000 AND AT [address] WITH [address] ACKERMAN AND PER DR. ACKERMAN THAT PATIENT WILL NOT BE GIVEN MEDICATION FOR TONIGHT PATIENT HAS REFUSED, PATIENT WANTS HER ID MD TO CALL HER BY PIPER REGARDING ANTIBIOTIC THERAPY.
[2020-01-16] MEDS: CEFEPIME 2 GM in IV D5W 100 ML IV SCH ×3 (03:24→20:19)
[2020-01-16] MEDS: HYDROCODONE/APAP 5/325MG 1 EACH TABLET PO PRN ×4 (03:56→22:19)
--- NOTE | 2020-01-16 03:58 | NUR ---
MS/RN NOTES PATIENT REQUESTED FOR PAIN MEDICATION O NORCO FOR GENERALIZED PAIN, MONITOR FOR RELIEF.
--- NOTE | 2020-01-16 06:30 | NUR ---
MS/RN CLOSING NOTES PATIENT ABLE TO SLEEP FEW HOURS, ALERT, ORIENTED X3, ABLE TO VERBALIZE NEEDS AT ALL TIMES,PAIN CONTROLLED WITH MEDICATION , ATTENDED TO ALL NEEDS, RESPIRATIONS EVEN AND UNLABORED ON ROOM AIR, SUPERVISED WITH TRANSFER FROM BED TO CHAIR. BED LOCKED, CALL LIGHTS WITHIN REACH. PROVIDED FLUIDS, OFFERED SNACKS, REPORTED ANY CONCERN WITH MD AND WILL ENDORSE TO AM RN FOR VERONICA.
--- NOTE | 2020-01-16 07:25 | NUR ---
rn opening notes Patient received on 2L nasal cannula, no sob noted, a/o x4 at this time. Midline NAOMI present. Patient states that she is okay at this time. Bed at the lowest setting, call light within reach, side rails up x2.
[2020-01-16 07:30] VITALS: BP 108/61
[2020-01-16] MEDS: FUROSEMIDE 40 MG TABLET PO SCH ×2 (08:34→17:11)
[2020-01-16] MEDS: FAMOTIDINE (20 MG) 20 MG TABLET PO SCH (08:34)
[2020-01-16] MEDS: FOLIC ACID 1 MG TABLET PO SCH (08:34)
[2020-01-16] MEDS: ZINC SULFATE 220 MG CAPSULE PO SCH (08:34)
[2020-01-16] MEDS: METOPROLOL TARTRATE 25 MG TABLET PO SCH ×2 (08:34→17:00)
[2020-01-16] MEDS: ASCORBIC ACID 500 MG TABLET PO SCH ×2 (08:35→17:11)
[2020-01-16] MEDS: CLOTRIMAZOLE 1% 15 GM TUBE TP SCH ×2 (08:37→17:09)
[2020-01-16] MEDS: ENOXAPARIN SODIUM 40 MG/0.4 ML DISP.SYRIN SQ SCH (08:37)
[2020-01-16] MEDS: HYDROGEL DRESSING 90 GM TUBE TP SCH ×2 (08:37)
[2020-01-16] MEDS: Z GUARD REMEDY 2 OZ OINT TP SCH (08:37)
[2020-01-16] MEDS ORDERED: POTASSIUM CHLORIDE 20 MEQ POWDER PACKET GT ONE (09:00)
[2020-01-16] MEDS ORDERED: POTASSIUM CHLORIDE 20 MEQ TAB.PRT.SR PO ONE (09:00)
[2020-01-16] MEDS: LIDOCAINE 5% (PATCH) 1 EA PATCH TP SCH (10:31)
[2020-01-16] MEDS: ONDANSETRON HCL/PF 4 MG/2 ML VIAL IVP PRN (12:06)
--- NOTE | 2020-01-16 18:16 | NUR ---
rn closing notes Patient remains on 2L nasal cannula, no sob noted, patient a/o x4 and is able to verbalize needs and wants. Midline NAOMI. blood draw planned tomorrow. Awaiting placement for patient to be dc. Bed at the lowest setting, call light within reach, side rails up x2. Will give report to NOC RN for VERONICA bedside.
--- NOTE | 2020-01-16 19:34 | NUR ---
MS/AUTOMATIC DRILLING MACHINE OPERATOR RECEIVED PT. WHEN I INTRODUCED MYSELF TO PT SHE WAS EXPRESSING DISAPPOINTMENT ABOUT MISPLACING HER AIRPODS. STATED THAT SHE AND THE PREVIOUS SHIFT STAFF HAD SEARCHED FOR THEM TO NO AVAIL. I ASSURED HER WE WOULD CONTINUE TO LOOK FOR THEM. I CHECKED THE CHART AND THEY WERE NOTED ON HER BELONGS LIST. WILL CONTINUE SEARCH. PT HAS NO OTHER COMPLAINTS AT THIS TIME. WILL CONTINUE TO MONITOR.
[2020-01-16 20:00] VITALS: BP_SYST 101; BP_SYST 114; BP_DIAS 55; BP_DIAS 70
[2020-01-17] MEDS: CEFEPIME 2 GM in IV D5W 100 ML IV SCH ×2 (04:09→12:29)
[2020-01-17] MEDS: HYDROCODONE/APAP 5/325MG 1 EACH TABLET PO PRN ×3 (04:40→22:14)
[2020-01-17 07:10] LABS: BASOPHILS # (AUTO) 0.1 /CMM (0.0-0.2); BASOPHILS % (AUTO) 0.9 % (0.0-2.0); EOSINOPHILS % (AUTO) 2.8 % (0.0-6.0); HEMATOCRIT 22 % (33-45); HEMOGLOBIN 7.2 g/dL (11.5-14.8); LYMPHOCYTES # (AUTO) 1.5 /CMM (0.8-4.8); LYMPHOCYTES % (AUTO) 14.5 % (20.0-44.0); MEAN CORPUSCULAR HGB CONC 33 g/dl (31.0-36.0); MEAN CORPUSCULAR VOLUME 91 fL (82-100); MONOCYTES # (AUTO) 0.9 /CMM (0.1-1.30); NEUTROPHILS # (AUTO) 7.3 /CMM (1.8-8.9); NEUTROPHILS % (AUTO) 72.8 % (43.0-81.0); PLATELET COUNT (AUTO) 135 /CMM (150-450); RED BLOOD CELL COUNT(AUTO) 2.43 MIL/uL (4.0-5.2); WHITE BLOOD COUNT (AUTO) 10.1 K/uL (4.3-11.0)
[2020-01-17 07:33] LABS: CALCIUM, SERUM 7.7 mg/dL (8.5-10.1); CREATININE 0.6 mg/dL (0.6-1.3); MAGNESIUM 1.5 mg/dL (1.8-2.4); PHOSPHORUS 2.8 mg/dL (2.5-4.9); POTASSIUM 3.4 mmol/L (3.5-5.1)
--- NOTE | 2020-01-17 07:54 | NUR ---
MS RN OPENING NOTES RECEIVED PATIENT IN BED, AWAKE, A/O X4. PATIENT IS ON ROOM AIR; BREATHING IS EVEN AND UNLABORED. NO SOB PRESENT AT THIS TIME. NO PAIN COMPLAINS AT THE MOMENT. NAOMI MIDLINE PRESENT AND INTACT. SAFETY PRECAUTIONS IN PLACE; BED IN LOW POSITION AND LOCKED, RAILS UP X2, CALL LIGHT WITHIN REACH. WILL CONTINUE TO MONITOR PATIENT.
[2020-01-17 08:00] VITALS: BP 104/68
[2020-01-17] MEDS: FAMOTIDINE (20 MG) 20 MG TABLET PO SCH (09:01)
[2020-01-17] MEDS: METOPROLOL TARTRATE 25 MG TABLET PO SCH ×2 (09:01→17:00)
[2020-01-17] MEDS: ASCORBIC ACID 500 MG TABLET PO SCH ×2 (09:01→17:48)
[2020-01-17] MEDS: ZINC SULFATE 220 MG CAPSULE PO SCH (09:01)
[2020-01-17] MEDS: FOLIC ACID 1 MG TABLET PO SCH (09:01)
[2020-01-17] MEDS: FUROSEMIDE 40 MG TABLET PO SCH ×2 (09:01→17:00)
[2020-01-17] MEDS: CLOTRIMAZOLE 1% 15 GM TUBE TP SCH ×2 (09:02→17:31)
[2020-01-17] MEDS: Z GUARD REMEDY 2 OZ OINT TP SCH (09:02)
[2020-01-17] MEDS: HYDROGEL DRESSING 90 GM TUBE TP SCH ×2 (09:02)
[2020-01-17] MEDS: ENOXAPARIN SODIUM 40 MG/0.4 ML DISP.SYRIN SQ SCH (09:03)
[2020-01-17] MEDS: ONDANSETRON HCL/PF 4 MG/2 ML VIAL IVP PRN (09:07)
[2020-01-17] MEDS: Magnesium 1GM/D5W 100ML PREMIX 100 ML IV SCH ×2 (10:03→11:08)
[2020-01-17] MEDS ORDERED: POTASSIUM CHLORIDE 20 MEQ TAB.PRT.SR PO SCH (10:30)
[2020-01-17] MEDS: LIDOCAINE 5% (PATCH) 1 EA PATCH TP SCH ×2 (11:08→11:15)
--- NOTE | 2020-01-17 14:03 | NUR ---
MS RN NOTES PATIENT COMPLAINING OF PAIN 04/18. REQUESTING PAIN MEDICATION. PRN NORCO ADMINISTERED. WILL REASSESS.
[2020-01-17 16:00] VITALS: BP 92/55
--- NOTE | 2020-01-17 18:11 | NUR ---
MS RN NOTES PATIENT HAD A DECREASED BLOOD PRESSURE 92/52. SCHEDULED BP MEDICATION AND LASIX NON-ADMINISTERED.
--- NOTE | 2020-01-17 18:43 | NUR ---
MS RN CLOSING NOTES PATIENT IN BED, AWAKE, A/O X4 AND WATCHING TV. PATIENT IS ON ROOM AIR; BREATHING IS EVEN AND UNLABORED. NO SOB PRESENT AT THIS TIME. NO PAIN COMPLAINS AT THE MOMENT. NAOMI MIDLINE PRESENT AND INTACT. ALL NEEDS ATTENDED TO THROUGHOUT THE DAY. SAFETY PRECAUTIONS REMAIN IN PLACE; BED IN LOW POSITION AND LOCKED, RAILS UP X2, CALL LIGHT WITHIN REACH. WILL ENDORSE TO NEONATAL SPECIALIST NURSE.
[2020-01-17 19:30] VITALS: BP 101/70
--- NOTE | 2020-01-17 19:30 | NUR ---
MS RN NOTES PATIENT IN BED, AWAKE, ALERT AND ORIENTED X 4. BREATHING EVEN AND UNLABORED ON 2L NC. SHOWS NO SIGNS OF ACUTE RESPIRATORY DISTRESS. NO ACUTE PAIN. IV ON NAOMI MIDLINE, ITS CLEAN DRY AND INTACT. SHOWS NO SIGNS OF INFILTRATION, NO REDNESS. SAFETY PRECAUTIONS IN PLACE. BED IN LOWEST POSITION, LOCKED, AND CALL LIGHT KEPT WITHIN REACH. WILL CONTINUE TO MONITOR.
[2020-01-17] MEDS: ACETAMINOPHEN 325 MG TABLET PO PRN (19:51)
--- NOTE | 2020-01-17 19:51 | NUR ---
MS RN NOTES PATIENT HAS FEVER OF 101. GIVEN PRN TYLENOL AT 1950. WILL CONTINUE TO MONITOR.
--- NOTE | 2020-01-17 20:51 | NUR ---
MS RN NOTES TEMP AFTER 1 HOUR OF TYLENOL 98.8. WILL CONTINUE TO MONITOR.
--- NOTE | 2020-01-17 22:14 | NUR ---
MS RN NOTES PATIENT COMPLAINING OF PIN 03/18. GIVEN PRN NORCO AT 2214. WILL CONTINUE TO MONITOR.
[2020-01-18] MEDS: HYDROCODONE/APAP 5/325MG 1 EACH TABLET PO PRN ×2 (05:20→22:10)
--- NOTE | 2020-01-18 05:20 | NUR ---
MS RN NOTES PATIENT COMPLAINING OF PAIN 03/18. GIVEN NORCO AT 0520.
--- NOTE | 2020-01-18 06:32 | NUR ---
MS RN NOTES PATIENT IN BED, SLEPT THROUGH NIGHT, ALERT AND ORIENTED X 4. BREATHING EVEN AND UNLABORED ON 2L NC. SHOWS NO SIGNS OF ACUTE RESPIRATORY DISTRESS. NO ACUTE PAIN. IV ON NAOMI MIDLINE, ITS CLEAN DRY AND INTACT. SHOWS NO SIGNS OF INFILTRATION, NO REDNESS. ALL DUE MEDICATIONS GIVEN. SAFETY PRECAUTIONS IN PLACE. BED IN LOWEST POSITION, LOCKED, AND CALL LIGHT KEPT WITHIN REACH. WILL ENDORSE TO ONCOMING NURSE.
--- NOTE | 2020-01-18 07:17 | NUR ---
MS RN OPENING NOTES RECEIVED PATIENT IN BED, AWAKE, A/O X4. PATIENT IN GOOD DISPOSITION. PATIENT IS ON ROOM AIR; BREATHING IS EVEN AND UNLABORED. NO SOB PRESENT AT THIS TIME. NO PAIN COMPLAINS AT THE MOMENT. NAOMI MIDLINE PRESENT AND INTACT. SAFETY PRECAUTIONS IN PLACE; BED IN LOW POSITION AND LOCKED, RAILS UP X2, CALL LIGHT WITHIN REACH. WILL CONTINUE TO MONITOR PATIENT.
[2020-01-18 08:00] VITALS: BP 98/54
[2020-01-18] MEDS: ENOXAPARIN SODIUM 40 MG/0.4 ML DISP.SYRIN SQ SCH ×2 (09:00→09:47)
[2020-01-18] MEDS: ZINC SULFATE 220 MG CAPSULE PO SCH ×2 (09:00→09:36)
[2020-01-18] MEDS: METOPROLOL TARTRATE 25 MG TABLET PO SCH ×2 (09:00→18:34)
[2020-01-18] MEDS: FOLIC ACID 1 MG TABLET PO SCH ×2 (09:00→09:36)
[2020-01-18] MEDS: FAMOTIDINE (20 MG) 20 MG TABLET PO SCH ×2 (09:00→09:36)
[2020-01-18] MEDS: ASCORBIC ACID 500 MG TABLET PO SCH ×3 (09:00→18:34)
[2020-01-18] MEDS: FUROSEMIDE 40 MG TABLET PO SCH ×2 (09:00→18:34)
[2020-01-18] MEDS: HYDROGEL DRESSING 90 GM TUBE TP SCH ×2 (09:30→09:31)
[2020-01-18] MEDS: Z GUARD REMEDY 2 OZ OINT TP SCH (09:31)
[2020-01-18] MEDS: CLOTRIMAZOLE 1% 15 GM TUBE TP SCH ×2 (09:31→17:00)
[2020-01-18] MEDS: LIDOCAINE 5% (PATCH) 1 EA PATCH TP SCH (11:00)
[2020-01-18] MEDS ORDERED: IV NS 0.9% 500 ML IV STA (11:27)
--- NOTE | 2020-01-18 12:15 | NUR ---
MS RN NOTES PATIENT DEVELOPED A CHEST RASH. PER PATIENT SHE STARTED TO FEEL ITCHY LAST NIGHT AND TODAY SHE DEVELOPED THIS RASH. TOOK A PIC AND SENT IT TO HER PRIMARY. WAS INSTRUCTED TO CONTACT ID. ID CONTACTED, WAITING FOR A CALL BACK AND FURTHER INSTRUCTIONS. WILL CONTINUE TO FOLLOW-UP.
--- NOTE | 2020-01-18 12:49 | NUR ---
MS RN NOTES PATIENT REFUSED LIDOCAINE PATCH SAYING IT DOES NOT HELP HER. AWARE.
[2020-01-18] MEDS ORDERED: DAPTOMYCIN 500 MG in IV NS 0.9% 50 ML IV SCH (13:00)
--- NOTE | 2020-01-18 13:17 | NUR ---
MS RN NOTES PER ID, INSTRUCTED TO HOLD CUBICIN SCHEDULED FOR 1300. SOMEONE WILL STOP BY TO TAKE A LOOK AT THE PATIENT.
--- NOTE | 2020-01-18 15:00 | NUR ---
MS RN NOTES PATIENT BEING CRANKY AND REFUSES LABS. TAX INTERN. HAD A PROBLEM FINDING A GOOD VEIN BC PT IS HARD STICK. MIDLINE DOES WORKS FOR INFUSION BUT NOT FOR LAB DRAW. PATIENT REFUSES ANY OTHER ATTEMPTS. SHE WANTS A NEW MIDLINE. TEACHING PROVIDED REG LAB NEED BUT SHE STILL REFUSES. WILL FOLLOW UP.
[2020-01-18] MEDS: diphenhydrAMINE HCL/ZINC ACET CREAM 28.3 GM TUBE TP PRN ×2 (15:09→22:06)
[2020-01-18 16:00] VITALS: BP 103/59
--- NOTE | 2020-01-18 16:46 | NUR ---
MS RN NOTES PATIENT IN BED. 1600 VITAL SIGNS SHOW FEVER OF 100.9 AND HR OF 140. MD NOTIFIED. PRN TYLENOL ADMINISTERED. WILL CONTINUE TO MONITOR.
[2020-01-18] MEDS: ACETAMINOPHEN 325 MG TABLET PO PRN (16:48)
[2020-01-18] MEDS: LORATADINE 10 MG TABLET PO SCH (18:36)
--- NOTE | 2020-01-18 18:52 | NUR ---
MS RN NOTES PER PRIMARY, PATIENT DOES NOT NEED OR QUALIFY FOR A PICC AND RE-INSERT MID-LINE INSTEAD.
--- NOTE | 2020-01-18 18:59 | NUR ---
MS RN CLOSING NOTES PATIENT IN BED, AWAKE, A/O X4 AND WATCHING TV. PATIENT IS ON OXYGEN THERAPY AT 2LPM; BREATHING IS EVEN AND UNLABORED. NO SOB PRESENT AT THIS TIME. MILD PAIN PRESENT; TOLERABLE. NAOMI MIDLINE PRESENT AND INTACT. ALL NEEDS ATTENDED TO THROUGHOUT THE DAY. SAFETY PRECAUTIONS IN PLACE; BED IN LOW POSITION AND LOCKED, RAILS UP X2, CALL LIGHT WITHIN REACH. WILL ENDORSE TO MECHANICAL SHOP LABORER NURSE.
[2020-01-18 20:00] VITALS: BP 97/50
--- NOTE | 2020-01-18 20:43 | NUR ---
MS/TELE/RN PATIENT IS AWAKE, ALERT, ORIENTED, COMFORTABLE, NO C/O PAIN, NO DISTRESS NOTED, CALL LIGHT IN REACH. REFUSED TO HAVE BED ALARM ON, PER PATIENT SHE CAN WALK. WILL MONITOR.
--- NOTE | 2020-01-18 22:11 | NUR ---
MS/TELE/RN C/O ITCHING, GENERALIZED RASHES AND SKIN REDNESS WAS NOTED, BENADRYL CREAM WAS APPLIED. WILL MONITOR.
--- NOTE | 2020-01-19 02:04 | NUR ---
MS/TELE/RN MIDLINE INSERTED AT LEFT UPPER ARM.
[2020-01-19 02:47] LABS: BASOPHILS # (AUTO) 0.3 /CMM (0.0-0.2); BASOPHILS % (AUTO) 2.6 % (0.0-2.0); EOSINOPHILS % (AUTO) 3.5 % (0.0-6.0); HEMATOCRIT 23 % (33-45); HEMOGLOBIN 7.2 g/dL (11.5-14.8); LYMPHOCYTES # (AUTO) 0.8 /CMM (0.8-4.8); MEAN CORPUSCULAR HGB CONC 32 g/dl (31.0-36.0); MEAN CORPUSCULAR VOLUME 92 fL (82-100); MONOCYTES # (AUTO) 0.7 /CMM (0.1-1.30); MONOCYTES % (AUTO) 5.7 % (2.0-12.0); NEUTROPHILS # (AUTO) 9.5 /CMM (1.8-8.9); NEUTROPHILS % (AUTO) 81.2 % (43.0-81.0); PLATELET COUNT (AUTO) 179 /CMM (150-450); RED BLOOD CELL COUNT(AUTO) 2.47 MIL/uL (4.0-5.2); WHITE BLOOD COUNT (AUTO) 11.7 K/uL (4.3-11.0)
[2020-01-19 03:08] LABS: APPEARANCE,URINE CLEAR (CLEAR); BILIRUBIN,URINE NEGATIVE (NEGATIVE); BLOOD, URINE NEGATIVE Ery/uL (NEGATIVE); COLOR,URINE YELLOW (YELLOW); KETONES,URINE NEGATIVE (NEGATIVE); LEUKOCYTE ESTERASE ,URINE TRACE (NEGATIVE); NITRITE, URINE NEGATIVE (NEGATIVE); PH,URINE 6.5 (5.0-8.0); PROTEIN,URINE TRACE mg/dl (NEGATIVE); UGLUCOSE NEGATIVE (NEGATIVE); UROBILINOGEN,URINE 0.2 EU/dL (0.2)
[2020-01-19 03:13] LABS: ALBUMIN 2.3 g/dL (3.4-5.0); BILIRUBIN,TOTAL 0.8 mg/dL (0.2-1.0); CALCIUM, SERUM 7.9 mg/dL (8.5-10.1); CREATININE 0.6 mg/dL (0.6-1.3); MAGNESIUM 1.9 mg/dL (1.8-2.4); POTASSIUM 3.4 mmol/L (3.5-5.1); TOTAL PROTEIN, SERUM 5.9 g/dL (6.4-8.2)
[2020-01-19 03:14] LABS: URINE SODIUM, RANDOM < 5 mmol/l (40-220)
[2020-01-19 03:15] LABS: BACTERIA,URINE Few /HPF (None Seen); RBC,URINE 0-2 /HPF (0-2); SQUAMOUS EPITHELIAL CELL,UR Few /HPF (None Seen)
[2020-01-19 03:22] LABS: THYROID STIMULATING HORMONE 4.045 uIU/mL (0.358-3.74); URIC ACID 3.3 mg/dL (2.6-7.2)
[2020-01-19 03:23] LABS: OSMOLALITY,URINE 125 mOS/kg (340-1090)
--- NOTE | 2020-01-19 06:13 | NUR ---
MS/TELE/RN PATIENT IS AWAKE, ALERT, COMFORTABLE, NO DISTRESS NOTED, CALL LIGHT IN REACH. ALL NEEDS ATTENDED AT THIS TIME, WILL CONTINUE TO MONITOR.
--- NOTE | 2020-01-19 07:47 | NUR ---
RN OPENING NOTE Patient is resting in bed, A/O x4, showing no signs of acute distress or SOB, stable on RA. Patient has no complaints of pain at this time. MARGARTIO midline is clean and intact, flushing well. Bed is in lowest position, side rails x3 in upright position, call light is within reach and patient is aware of how to call for assistance when needed. Will continue with plan of care.
[2020-01-19 08:00] VITALS: BP 102/59
--- NOTE | 2020-01-19 08:00 | NUR ---
RN NOTE Patient has temp of 100.6, cooling measures initiated, will continue to monitor.
[2020-01-19] MEDS: ASCORBIC ACID 500 MG TABLET PO SCH ×2 (08:16→16:24)
[2020-01-19] MEDS: FOLIC ACID 1 MG TABLET PO SCH (08:17)
[2020-01-19] MEDS: FAMOTIDINE (20 MG) 20 MG TABLET PO SCH (08:17)
[2020-01-19] MEDS: LORATADINE 10 MG TABLET PO SCH (08:17)
[2020-01-19] MEDS: ZINC SULFATE 220 MG CAPSULE PO SCH (08:19)
[2020-01-19] MEDS: ENOXAPARIN SODIUM 40 MG/0.4 ML DISP.SYRIN SQ SCH (08:20)
[2020-01-19] MEDS: METOPROLOL TARTRATE 25 MG TABLET PO SCH ×2 (08:21→16:24)
[2020-01-19] MEDS: Z GUARD REMEDY 2 OZ OINT TP SCH (08:22)
[2020-01-19] MEDS: CLOTRIMAZOLE 1% 15 GM TUBE TP SCH ×2 (08:22→16:30)
[2020-01-19] MEDS: FUROSEMIDE 40 MG TABLET PO SCH ×2 (08:22→17:41)
[2020-01-19] MEDS: HYDROGEL DRESSING 90 GM TUBE TP SCH ×2 (08:22)
[2020-01-19] MEDS: DAPTOMYCIN 500 MG in IV NS 0.9% 50 ML IV SCH (09:24)
[2020-01-19] MEDS: ACETAMINOPHEN 325 MG TABLET PO PRN ×2 (10:49→23:00)
[2020-01-19] MEDS ORDERED: POTASSIUM CHLORIDE 20 MEQ TAB.PRT.SR PO SCH (11:00)
[2020-01-19] MEDS: LIDOCAINE 5% (PATCH) 1 EA PATCH TP SCH (11:13)
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
[2020-01-19] MEDS ORDERED: K PHOS NEUTRAL 250 MG TABLET PO ONE (13:00)
[2020-01-19] MEDS ORDERED: DOCUSATE SODIUM 100 MG CAPSULE PO PRN (15:00)
[2020-01-19 16:00] VITALS: BP 103/69
[2020-01-19 17:38] VITALS: BP 117/51
--- NOTE | 2020-01-19 18:44 | NUR ---
RN CLOSING NOTE Patient is resting in bed, A/O x4, showing no signs of acute distress or SOB, stable on RA, uses 2L NC PRN. MARGARITO midline is clean and intact, flushing well. Patient was able to tolerate Cibracin abx with no aggravation of allergic rxn, ID aware. All patient needs met, all due medications given, patient able to use bedside commode. Bed is in lowest position, side rails x3 in upright position, call light is within reach and patient is aware of how to call for assistance when needed. Will endorse to mold shifter.
--- NOTE | 2020-01-19 19:35 | NUR ---
RN OPEN NOTES PATIENT IS LAYING IN BED, BED IS IN LOWEST LOCKED POSITION WITH SIDE RAILS UP X3 SEMI FOWLERS. CALL LIGHT IS WITHIN REACH. ON 3L NASAL CANULA, NO SOB/ ACUTE RESPIRATORY DISTRESS NOTED. APPEARS TO BE COMFORTABLE/ NO COMPLAINTS OF PAIN AT THE MOMENT. WILL CONTINUE TO MONITOR.
[2020-01-19 20:00] VITALS: BP 105/55
[2020-01-19] MEDS: ZOLPIDEM TARTRATE 5 MG TABLET PO PRN (23:00)
[2020-01-20 06:37] LABS: CALCIUM, SERUM 7.6 mg/dL (8.5-10.1); CREATININE 0.5 mg/dL (0.6-1.3); PHOSPHORUS 1.8 mg/dL (2.5-4.9)
--- NOTE | 2020-01-20 06:47 | NUR ---
RN CLOSE NOTES PATIENT IS LAYING IN BED. ON 3L NASAL CANULA SATURATING AT 100%. NO SOB/ ACUTE RESPIRATORY DISTRESS NOTED. APPEARS COMFORTABLE/ NO COMPLAINTS OF PAIN AT THE MOMENT. CALL LIGHT IS WITHIN REACH. BED IS IN LOWEST LOCKED POSITION WITH SIDE RAILS UP X2, SEMI FOWLERS. A/O X4. MIDLINE ON LEFT UPPER ARM IS PATENT, ABLE TO FLUSH. WILL ENDORSE TO AM NURSE.
--- NOTE | 2020-01-20 07:45 | NUR ---
RN OPENING NOTE Patient is resting in bed, A/O x4, showing no signs of acute distress or SOB, saturating >95% on 3L NC. Patient has no complaints of pain at this time. MARGARITO midline is clean and intact, flushing well. Bed is in lowest position, side rails x3 in upright position, call light is within reach and patient is aware of how to call for assistance when needed. Will continue with plan of care.
[2020-01-20 08:00] VITALS: BP 115/60
[2020-01-20] MEDS: FUROSEMIDE 40 MG TABLET PO SCH ×2 (08:09→17:24)
[2020-01-20] MEDS: ZINC SULFATE 220 MG CAPSULE PO SCH (08:10)
[2020-01-20] MEDS: ASCORBIC ACID 500 MG TABLET PO SCH ×2 (08:10→17:24)
[2020-01-20] MEDS: FOLIC ACID 1 MG TABLET PO SCH (08:10)
[2020-01-20] MEDS: FAMOTIDINE (20 MG) 20 MG TABLET PO SCH (08:10)
[2020-01-20] MEDS: METOPROLOL TARTRATE 25 MG TABLET PO SCH ×2 (08:10→17:25)
[2020-01-20] MEDS: LORATADINE 10 MG TABLET PO SCH (08:10)
[2020-01-20] MEDS: HYDROCODONE/APAP 5/325MG 1 EACH TABLET PO PRN (08:11)
[2020-01-20] MEDS: ENOXAPARIN SODIUM 40 MG/0.4 ML DISP.SYRIN SQ SCH (08:30)
[2020-01-20] MEDS: HYDROGEL DRESSING 90 GM TUBE TP SCH ×2 (08:31)
[2020-01-20] MEDS: Z GUARD REMEDY 2 OZ OINT TP SCH (08:31)
[2020-01-20] MEDS: CLOTRIMAZOLE 1% 15 GM TUBE TP SCH ×2 (08:31→17:25)
[2020-01-20] MEDS: DAPTOMYCIN 500 MG in IV NS 0.9% 50 ML IV SCH (09:11)
[2020-01-20] MEDS ORDERED: POTASSIUM CHLORIDE 20 MEQ TAB.PRT.SR PO SCH (09:30)
[2020-01-20] MEDS ORDERED: CLOT15CR35 TP (09:34)
[2020-01-20] MEDS ORDERED: LIDO30AD10 TP (09:34)
[2020-01-20] MEDS ORDERED: HYDR-3972 PO (09:34)
[2020-01-20] MEDS ORDERED: ACET325T53 PO (09:34)
[2020-01-20] MEDS ORDERED: DAPT500V2 IV (09:34)
[2020-01-20] MEDS ORDERED: DIPH28.33 TP (09:34)
[2020-01-20] MEDS ORDERED: ALBUT2 NEB (09:34)
[2020-01-20] MEDS ORDERED: LORA10TA7 PO (09:34)
[2020-01-20] MEDS: LIDOCAINE 5% (PATCH) 1 EA PATCH TP SCH ×2 (11:00→11:06)
[2020-01-20] MEDS ORDERED: POTASSIUM CHLORIDE 20 MEQ POWDER PACKET PO SCH (13:00)
[2020-01-20] MEDS ORDERED: K PHOS NEUTRAL 250 MG TABLET PO ONE (13:30)
--- NOTE | 2020-01-20 19:10 | NUR ---
RN CLOSING NOTE Patient is resting in bed, A/O x4, showing no signs of acute distress or SOB, saturating 100% on RA. Patient is cleared for discharge to [facility]. Expected picking machine operator helper time by [facility] was 4pm-5pm. However, she has not come to picking machine operator helper the patient. I called [facility] several times and left a voicemail, no answer. MARGARITO midline is clean and intact, flushing well. Patient will be DC with midline to continue IV abx at home. DC paperwork complete, patient signed DC paperwork. All belongings with patient except for airpods. Documented and placed in chart. Patient refused skin assessment and photos. All patient needs met, all due medications given. Bed is in lowest position, side rails x3 in upright position, call light is within reach and patient is aware of how to call for assistance when needed. Will endorse to night clerk auditor.
--- NOTE | 2020-01-20 19:30 | NUR ---
RN OPEN NOTES PATIENT IS WATCHING TV IN BED. BED IS IN LOWEST LOCKED POSITION WITH SIDE RAILS UP X2, SEMI FOWLERS. CALL LIGHT IS WITHIN REACH. NO COMPLAINTS OF PAIN AT THE MOMENT. PATIENT STATES SHE IS JUST WAITING TO BE DISCHARGED TO THE [facility]. NO SOB/ ACUTE RESPIRATORY DISTRESS NOTED. WILL CONTINUE TO MONITOR.
[2020-01-20 20:00] VITALS: BP 94/49
--- NOTE | 2020-01-20 23:00 | NUR ---
RN NOTES AM NURSE STATED THAT SHE TRIED CALLING GOSIA, THE WORKER AT THE [facility] BUT NO ONE HAS BEEN ANSWERING. PATIENT STATES THAT GOSIA, WILL PICK HER UP SOMETIME THIS MORNING INSTEAD OF THIS NIGHT. WILL FOLLOW UP WITH GOSIA IN THE AM.
[2020-01-21] MEDS: HYDROCODONE/APAP 5/325MG 1 EACH TABLET PO PRN ×2 (01:26→15:38)
[2020-01-21] MEDS: ZOLPIDEM TARTRATE 5 MG TABLET PO PRN (01:26)
--- NOTE | 2020-01-21 06:30 | NUR ---
RN NOTES PATIENT'S FATHER DROPPED OFF BACKPACK FULL OF EXTRA CLOTHES FOR HER TO CHANGE INTO.
--- NOTE | 2020-01-21 06:42 | NUR ---
RN CLOSE NOTES PATIENT IS LAYING IN BED, BED IS IN LOWEST LOCKED POSITION WITH SIDE RAILS UP X2, SEMI FOWLERS. PATIENT IS AWAITING FOR PICKUP FROM [facility] FOR DISCHARGE. ON 3L NASAL CANULA SATURATING AT 100%. NO SOB/ ACUTE RESPIRATORY DISTRESS NOTED. CALL LIGHT IS WITHIN REACH. NO COMPLAINTS OF PAIN AT THE MOMENT. MIDLINE IN MARGARITO IS INTACT AND PATENT. WAS TOLD TO LEAVE MIDLINE IN DURING DISCHARGE SINCE SHE WILL STILL BE RECEIVING ANTIBIOTICS (DAPTOMYCIN). WILL ENDORSE TO AM NURSE.
--- NOTE | 2020-01-21 07:10 | NUR ---
MS RN NOTES RECEIVED PATIENT IN BED ASLEEP, AROUSABLE TO VERBAL AND TACTILE STIMULI. HOB ELEVATED. NO SOB. DENIES ANY C/O PAIN NOR DISCOMFORT AT THIS TIME. MARGARITO MIDLINE INTACT AND PATENT. BED IN LOWEST POSITION, LOCKED. BED ALARM ON. CALL LIGHT WITHIN REACH.
[2020-01-21 08:00] VITALS: BP 117/75
[2020-01-21 08:10] LABS: CREATININE 0.5 mg/dL (0.6-1.3); PHOSPHORUS 1.4 mg/dL (2.5-4.9); POTASSIUM 3.1 mmol/L (3.5-5.1)
[2020-01-21] MEDS: DAPTOMYCIN 500 MG in IV NS 0.9% 50 ML IV SCH (09:34)
[2020-01-21] MEDS: FAMOTIDINE (20 MG) 20 MG TABLET PO SCH (09:47)
[2020-01-21] MEDS: METOPROLOL TARTRATE 25 MG TABLET PO SCH ×2 (09:48→17:00)
[2020-01-21] MEDS: FOLIC ACID 1 MG TABLET PO SCH (09:48)
[2020-01-21] MEDS: LORATADINE 10 MG TABLET PO SCH (09:49)
[2020-01-21] MEDS: ASCORBIC ACID 500 MG TABLET PO SCH ×2 (09:49→17:16)
[2020-01-21] MEDS: ZINC SULFATE 220 MG CAPSULE PO SCH (09:49)
[2020-01-21] MEDS: FUROSEMIDE 40 MG TABLET PO SCH ×2 (09:51→17:16)
[2020-01-21] MEDS: ENOXAPARIN SODIUM 40 MG/0.4 ML DISP.SYRIN SQ SCH ×2 (09:52→09:55)
[2020-01-21] MEDS: Z GUARD REMEDY 2 OZ OINT TP SCH (09:55)
[2020-01-21] MEDS: HYDROGEL DRESSING 90 GM TUBE TP SCH ×2 (09:55)
[2020-01-21] MEDS: CLOTRIMAZOLE 1% 15 GM TUBE TP SCH ×2 (09:55→17:00)
[2020-01-21] MEDS: LIDOCAINE 5% (PATCH) 1 EA PATCH TP SCH ×2 (10:03→10:15)
--- NOTE | 2020-01-21 10:15 | NUR ---
MS RN NOTES PATIENT REFUSED LIDODERM PATCH AND LOVENOX DESPITE OF EDUCATIONS AND EXPLANATIONS OF RISKS AND BENEFITS.
[2020-01-21] MEDS: POTASSIUM CHLORIDE 20 MEQ POWDER PACKET PO SCH ×2 (10:56→12:00)
[2020-01-21] MEDS: ONDANSETRON HCL/PF 4 MG/2 ML VIAL IVP PRN (11:20)
[2020-01-21] MEDS ORDERED: K PHOS NEUTRAL 250 MG TABLET PO ONE (15:00)
--- NOTE | 2020-01-21 15:54 | NUR ---
MS RN NOTES PATIENT REFUSED WOUND CARE TO BE DONE AND PICTURES TAKEN DESPITE OF EDUCATION AND EXPLANATIONS OF RISKS AND BENEFITS.
[2020-01-21 16:00] VITALS: BP 102/48
[2020-01-21 17:00] VITALS: BP 104/55
--- NOTE | 2020-01-21 17:55 | NUR ---
MS RN NOTES ALERT AND ORIENTED X4. PATIENT PICKED UP BY [facility] FROM [facility] VIA PRIVATE VEHICLE FOR DISCHARGE. LEFT UPPER ARM MIDLINE INTACT WITH DRESSING INTACT. ALL BELONGINGS ACCOUNTED FOR. PATIENT AWARE OF DISCHARGE INSTRUCTIONS WHEN DISCUSSED. DISCHARGE PACKET GIVEN TO PATIENT. DENIES ANY C/O PAIN NOR DISCOMFORT. NO SOB. NO COUGH. OBSERVED PATIENT AMBULATORY WITH STEADY GAIT. PATIENT LEFT IN STABLE CONDITION. IN NO APPARENT DISTRESS.
== END 2020-01-21 18:00 | disposition home health service (06) | DRG 720 ==
LOC: TELE 22:32 → MED 01-05 12:11 → TELE 01-05 21:22 → MED 01-06 08:40 → MEDSG2 01-12 21:32 → TELE2 01-12 22:28 → TELE 01-13 22:10 → MED 01-14 08:43
PROVIDERS: ADMIT Student in an Organized Health Care Education/Training Program; ATTEND Nurse Practitioner Acute Care
PROC: 05HY33Z Insertion of Infusion Device into Upper Vein, Percutaneous Approach (ICD-10-PCS; principal; 2020-01-05)
PROC: 0JB70ZZ Excision of Back Subcutaneous Tissue and Fascia, Open Approach (ICD-10-PCS; principal; 2020-01-05)
DX: A41.9 Sepsis, unspecified organism (principal); I33.0 Acute and subacute infective endocarditis; I76 Septic arterial embolism; E43 Unspecified severe protein-calorie malnutrition; G92 Toxic encephalopathy; D68.9 Coagulation defect, unspecified; E83.42 Hypomagnesemia; E87.2 Acidosis; J18.9 Pneumonia, unspecified organism; E83.51 Hypocalcemia; E87.1 Hypo-osmolality and hyponatremia; L89.153 Pressure ulcer of sacral region, stage 3; D69.6 Thrombocytopenia, unspecified; K74.60 Unspecified cirrhosis of liver; B95.62 Methicillin resistant Staphylococcus aureus infection as the cause of diseases classified elsewhere; F90.9 Attention-deficit hyperactivity disorder, unspecified type; F19.11 Other psychoactive substance abuse, in remission; Z98.890 Other specified postprocedural states; L30.4 Erythema intertrigo; E78.5 Hyperlipidemia, unspecified; D64.9 Anemia, unspecified; T38.0X5A Adverse effect of glucocorticoids and synthetic analogues, initial encounter; F41.9 Anxiety disorder, unspecified; E87.6 Hypokalemia; I42.9 Cardiomyopathy, unspecified; R74.0 Nonspecific elevation of levels of transaminase and lactic acid dehydrogenase [LDH]; E79.0 Hyperuricemia without signs of inflammatory arthritis and tophaceous disease; E78.1 Pure hyperglyceridemia; I27.20 Pulmonary hypertension, unspecified; I08.1 Rheumatic disorders of both mitral and tricuspid valves; Z95.2 Presence of prosthetic heart valve; Z91.19 Patient's noncompliance with other medical treatment and regimen; Z91.14 Patient's other noncompliance with medication regimen; Z87.891 Personal history of nicotine dependence; Z82.49 Family history of ischemic heart disease and other diseases of the circulatory system; I50.9 Heart failure, unspecified; N17.9 Acute kidney failure, unspecified; L27.0 Generalized skin eruption due to drugs and medicaments taken internally; T36.95XA Adverse effect of unspecified systemic antibiotic, initial encounter; Y92.89 Other specified places as the place of occurrence of the external cause
CPT/HCPCS: 36410; 36415; 71045-TC; 80048-TC; 80053-TC; 80202-TC; 81000-TC; 82550-TC; 82728-TC; 83605-TC; 83615-TC; 83735-TC; 83935-TC; 84100-TC; 84300-TC; 84439-TC; 84443-TC; 84550-TC; 84703-TC; 85025-TC; 85378-TC; 86140-TC; 87040-TC; 87070-TC; 87081-TC; 87086-TC; 93307-TC; 97116-TC; 97530-TC; A4216; A6248; A6253; A6403; G0378; J0692; J0878; J1650; J1885; J2405; J3370; J3475; J7030; J7050; J7060

== ENCOUNTER 2020-03-08 15:52 | Emergency (ER) | payer OTHER ==
[~2020-03-08] VITALS: Ht 160 cm; Wt 63.5 kg
[~2020-03-08 15:52] MED LIST changes: +ACET325T53 PO; +ALBUT2 NEB; +ASCO500T10 PO; +BALS60OI4 TP; +CLOT15CR35 TP; +DAPT500V2 IV; -DEXT5TAB15 PO; +DIPH28.33 TP; +DOCU100C36 PO; +ENOX40DI SQ; +FAMO20TA8 PO; +FOLI10PO5 PO; +FURO40TA5 PO; +INSU100V39 SQ; +LIDO30AD10 TP; +LORA10TA7 PO; +METO25TA20 PO; +NYST15PO4 TP; +ZINC1CAP2 PO
[2020-03-08 15:59] VITALS: BP 108/77
--- NOTE | 2020-03-08 16:14 | NUR ---
midline removed. tip is intact upon removal. site has no s/s of infection. applied pressure and gauze.
--- NOTE | 2020-03-08 16:15 | NUR ---
Patient discharged to home in stable condition. Written and verbal after care instructions given. Patient verbalizes understanding of instruction. Pt ambulatory with a steady gait
== END 2020-03-08 16:17 | disposition home or self-care (01) ==
LOC: ER 15:52
DX: Z45.2 Encounter for adjustment and management of vascular access device (principal)

== ENCOUNTER 2020-12-01 17:33 | Inpatient (IN) | payer OTHER ==
[~2020-12-01] VITALS: Ht 160 cm; Wt 69.9 kg
--- NOTE | 2020-12-01 18:01 | NUR ---
BIBS FROM HOME TO ER BED 6. AAOX4. NOT IN RESP DISTRESS, BREATHING EVEN AND UNLABORED. CAME IN FOR HEADACHE, FEVER, CHILLS AND ABDOMINAL TENDERNESS FOR THE PAST 3 DAYS. PT REPORTS THAT SHE HAD THE 1ST COVID VACCINE X 1 WEEK AGO. UPON ASSESSMENT, TEMP WAS NOTED @ 98.5 ORALLY. PROVIDER IS AT BEDSIDE FOR EVAL. AWAITING ORDERS
[2020-12-01] MEDS ORDERED: IV NS 0.9% 1,000 ML BAG IV ONE (18:30)
[2020-12-01 18:39] LABS: BASOPHILS % (AUTO) 0.2 % (0.0-2.0); EOSINOPHILS % (AUTO) 0.2 % (0.0-6.0); HEMATOCRIT 37 % (33-45); LYMPHOCYTES # (AUTO) 0.6 /CMM (0.8-4.8); LYMPHOCYTES % (AUTO) 5.6 % (20.0-44.0); MEAN CORPUSCULAR HGB CONC 35 g/dl (31.0-36.0); MEAN CORPUSCULAR VOLUME 95 fL (82-100); MONOCYTES # (AUTO) 0.6 /CMM (0.1-1.30); MONOCYTES % (AUTO) 6.2 % (2.0-12.0); NEUTROPHILS # (AUTO) 8.8 /CMM (1.8-8.9); NEUTROPHILS % (AUTO) 87.8 % (43.0-81.0); PLATELET COUNT (AUTO) 68 /CMM (150-450); RED BLOOD CELL COUNT(AUTO) 3.92 MIL/uL (4.0-5.2); WHITE BLOOD COUNT (AUTO) 10.1 K/uL (4.3-11.0)
[2020-12-01 18:44] LABS: BILIRUBIN,URINE MODERATE (NEGATIVE); LEUKOCYTE ESTERASE ,URINE Negative (NEGATIVE); NITRITE, URINE Negative (NEGATIVE); PH,URINE 5.5 (5.0-8.0); PROTEIN,URINE 100 mg/dl (NEGATIVE); UGLUCOSE Negative (NEGATIVE)
[2020-12-01 18:48] LABS: COLOR,URINE DARK YELLOW (YELLOW)
[2020-12-01 18:49] LABS: BACTERIA,URINE Rare /HPF (None Seen); SQUAMOUS EPITHELIAL CELL,UR Few /HPF (None Seen); WBC,URINE NONE SEEN /HPF (0-3)
[2020-12-01 19:11] LABS: ALBUMIN 3.4 g/dL (3.4-5.0); BILIRUBIN,DIRECT 1.4 mg/dL (0.0-0.2); BILIRUBIN,TOTAL 3.2 mg/dL (0.2-1.0); CALCIUM, SERUM 8.7 mg/dL (8.5-10.1); CREATININE 1.4 mg/dL (0.6-1.3); POTASSIUM 3.1 mmol/L (3.5-5.1); TOTAL PROTEIN, SERUM 7.7 g/dL (6.4-8.2)
[2020-12-01] MEDS ORDERED: ONDANSETRON HCL/PF 4 MG/2 ML VIAL ONE (19:22)
[2020-12-01] MEDS ORDERED: MORPHINE SULFATE INJ 4 MG/ML DISP.SYRIN ONE ×2 (19:22→21:54)
--- NOTE | 2020-12-01 19:27 | NUR ---
US AT BEDSIDE
[2020-12-01] MEDS ORDERED: ONDANSETRON HCL/PF 4 MG/2 ML VIAL IV ONE (19:30)
[2020-12-01] MEDS ORDERED: MORPHINE SULFATE INJ 2 MG/ML DISP.SYRIN IV ONE ×2 (19:30→22:00)
[2020-12-01] MEDS ORDERED: PIPERACILLIN /TAZOBACTAM 3.375 G in IV D5W 50 ML IV ONE (20:00)
[2020-12-01] MEDS ORDERED: PIPERACILLIN /TAZOBACTAM 3.375 G VIAL IV ONE (20:07)
--- NOTE | 2020-12-01 20:52 | NUR ---
DR. CARRERA PAGED PER DEBRA JAY.
[2020-12-01 20:55] LABS: BAND % (MANUAL) 9 % (0.0-5.0); LYMPHOCYTES % (MANUAL) 13 % (16-48); MONOCYTES % (MANUAL) 4 % (0-11.0); NEUTROPHILS % (MANUAL) 74 (42-76)
--- NOTE | 2020-12-01 21:23 | NUR ---
CALLED OFFICE OF DR DEBI MD PAGED
--- NOTE | 2020-12-01 21:53 | NUR ---
CALLED OFFICE OF DR CARRERA, LEFT VOICEMAIL FOR PAGE
--- NOTE | 2020-12-01 22:00 | NUR ---
PT VERBALIZED THAT SHE IS HAVING PAIN ONCE AGAIN. PROVIDER MADE AWARE. ORDERS RECEIVED, NOTED AND CARRIED OUT
--- NOTE | 2020-12-01 22:12 | NUR ---
m/s 315-2
--- NOTE | 2020-12-01 22:22 | NUR ---
REPORT GIVEN TO OLY MCRAE FOR VERONICA
[2020-12-01 22:35] VITALS: BP 123/51
--- NOTE | 2020-12-01 22:36 | NUR ---
pt transported to unit on [facility] emt at bedside. Pt is in stable condition.
--- NOTE | 2020-12-01 22:40 | NUR ---
RN NOTES RECEIVED PT. FROM ER WITH DX. OF CHOLELITHIASIS, A/OX4, AMBULATORY, NOTED PT. TEMPERATURE IS 102, WILL PAGED DR. POZO TO INFORM PT. TEMPERATURE... MAKE PT. COMFORTABLE, CALL LIGHT WITHIN REACH, SIDERAILSUP2, WILL CONTINUE TO MONITOR
--- NOTE | 2020-12-01 22:45 | NUR ---
RN NOTES TRY TO OBTAIN PATIENT PAST MEDICAL HISTORY BUT PT. GET A LITTLE BIT UPSET AND ASKED ME TO CHECKED HER PREVIOUS RECORD. EXPLAINED THE BENEFITS AND IMPORTANCE OF GETTING HIS PAST MEDICAL HISTORY BUT PT. STILL NOT HAPPY TO GIVE INFO
--- NOTE | 2020-12-01 22:55 | NUR ---
RN NOTES Informed Dr. Loza regarding patient's temperature of 102. got an order to transfer the pt. to [facility], order noted and carried out
[2020-12-01] MEDS ORDERED: ACETAMINOPHEN 325 MG TABLET PO PRN (23:30)
[2020-12-02] MEDS ORDERED: VANCOMYCIN 1.25 GM in IV D5W 250 ML IV ONE (00:30)
[2020-12-02] MEDS ORDERED: TEMAZEPAM 7.5 MG CAPSULE PO PRN (00:30)
--- NOTE | 2020-12-02 00:35 | NUR ---
RN NOTES Transfer to MS 1 and gave report to Zuleika for continuation of admission
[2020-12-02] MEDS: ENOXAPARIN SODIUM 40 MG/0.4 ML DISP.SYRIN SQ SCH ×2 (01:12→22:13)
--- NOTE | 2020-12-02 01:16 | NUR ---
KATELYN/RN RECEIVED PATIENT FROM [facility] BY WHEELCHAIR. PATIENT WAS AWAKE, ALERT, ORIENTED X 4, COMFORTABLE, NO C/O PAIN AT THIS TIME, NO SIGNS OF DISTRESS NOTED, MADE COMFORTABLE IN BED. ATTEMPTED TO OBTAIN THE PAST MEDICAL INFORMATIONS FOR THE ADMISSION BUT PATIENT REFUSED TO ANSWER QUESTIONS, PATIENT STATED " I DON'T WANT TO ANSWER TO YOUR QUESTIONS, CAN YOU JUST LOOK AT MY PAST RECORDS". TEMP 100.2 WAS NOTED, TYLENOL 650 MG PO WAS GIVEN. PLAN OF CARE DISCUSSED, VERBALISED UNDERSTANDING AND AGREEMENT TO THE PLAN OF CARE. TAUGHT TO USE THE CALL LIGHT, VERBALISED UNDERSTANDING AND PLACED IT AT BEDSIDE WITHIN REACH. WILL MONITOR.
[2020-12-02 01:30] VITALS: BP 123/81
[2020-12-02] MEDS: ONDANSETRON HCL/PF 4 MG/2 ML VIAL IVP PRN ×2 (03:42→13:46)
[2020-12-02] MEDS: MORPHINE SULFATE INJ 2 MG/ML DISP.SYRIN IV PRN ×4 (03:42→19:40)
[2020-12-02 04:00] VITALS: BP 114/67
[2020-12-02] MEDS ORDERED: PIPERACILLIN /TAZOBACTAM 3.375 G in IV D5W 50 ML IV SCH (05:00)
[2020-12-02] MEDS ORDERED: MAG HYDROX/AL HYDROX/SIMETH 30 ML UDC PO PRN (05:30)
[2020-12-02] MEDS ORDERED: PIPERACILLIN /TAZOBACTAM 3.375 G VIAL IV ONE (05:33)
--- NOTE | 2020-12-02 06:23 | NUR ---
KATELYN/RN PATIENT IS AWAKE, WATCHING TV, COMFORTABLE, NO SIGNS OF DISTRESS NOTE, CALL LIGHT IN REACH, ALL NEEDS ATTENDED AT THIS TIME, WILL CONTINUE TO MONITOR.
[2020-12-02] MEDS ORDERED: Potassium Chloride 20 MEQ in IV D5/ 0.9% NACL 1,000 ML IV PRN (06:30)
[2020-12-02] MEDS ORDERED: ACETAMINOPHEN 650 MG/SUPP.RECT RC PRN (06:30)
[2020-12-02] MEDS ORDERED: Potassium Chloride 20 MEQ in IV D5/ 0.9% NACL 1,000 ML IV SCH (06:50)
[2020-12-02] MEDS ORDERED: PANTOPRAZOLE 40 MG TABLET.DR PO SCH (07:30)
[2020-12-02] MEDS: PANTOPRAZOLE 40 MG VIAL IV SCH (07:50)
[2020-12-02] MEDS: Potassium Chloride 20 MEQ in IV D5/ 0.9% NACL 1,000 ML IV SCH ×2 (07:51→16:50)
[2020-12-02 08:00] VITALS: BP 111/63
--- NOTE | 2020-12-02 08:00 | NUR ---
RN OPENING NOTE PATIENT IS CURRENTLY IN BED WITH HOB AT SEMI FOWLERS POSITION. PATIENT IS ON ROOM AIR WITH NO SIGNS OF LABORED BREATHING. PATIENT IS AOX4. SKIN IS INTACT. RFA IS PATENT, INTACT, AND HAS NO SIGNS OF INFILTRATION. BED IS LOCKED IN THE LOWEST POSITION, 3 GUARD RAILS RAISED, CALL CRUZ WITHIN REACH, AND ALL HOSPITAL SAFETY PRECAUTIONS ARE BEING FOLLOWED. WILL CONTINUE TO MONITOR THROUGHOUT SHIFT.
[2020-12-02] MEDS ORDERED: LORATADINE 10 MG TABLET PO SCH (09:00)
[2020-12-02] MEDS ORDERED: FAMOTIDINE (20 MG) 20 MG TABLET PO SCH (09:00)
--- NOTE | 2020-12-02 10:25 | NUR ---
RN NOTE PATIENT DISCONNECTED IV AND WENT OUTSIDE TO VENDING MACHINE. MADE PATIENT AWARE OF HER NPO STATUS AND POTENTIAL SIDE EFFECTS OF NOT FOLLOWING THEM. ESCORTED PATIENT BACK TO ROOM SAFELY.
[2020-12-02] MEDS: PIPERACILLIN /TAZOBACTAM 3.375 G in IV D5W 100 ML IV SCH ×2 (10:30→17:15)
[2020-12-02 12:00] VITALS: BP 111/63
--- NOTE | 2020-12-02 13:30 | NUR ---
PROVIDED HANDOFF TO OLY LING FOR VERONICA. PATIENT IS IN STABLE CONDITION.
--- NOTE | 2020-12-02 13:30 | NUR ---
RECEIVED REPORT FROM OLY SIN FOR VERONICA.
[2020-12-02 16:00] VITALS: BP 108/64
--- NOTE | 2020-12-02 19:40 | NUR ---
RN NOTE PT GOT BACK FROM RADIOLOGY FOR HIDA SCAN, PT COMPLAINING OF SEVERE HEADACHE, PT COMPLAINING OF BEING NPO, EXPLAINED TO PT THE REASON OF BEING NPO AND NOT ACCEPTING IT. PT WENT OUT TO GET WATER FROM VENDING MACHINE. DR. POZO NOTIFIED ABOUT THE BEHAVIOR. MORPHINE IVP GIVEN ORDERED DUE TO SEVERE PAIN. HOOKED UP TO IV, RESTARTED D5NS WITH KCL AND ZOSYN THAT WAS STOPPED BECAUSE OF PT WENT TO RADIOLOGY. ALL SAFETY MEASURES IMPLEMENTED PER PROTOCOL. KEPT COMFORTABLE IN BED.
[2020-12-02 20:00] VITALS: BP 95/50
[2020-12-02 21:17] LABS: ALANINE AMINOTRANSFERASE 38 U/L (12-78); ALBUMIN 2.7 g/dL (3.4-5.0); ALKALINE PHOSPHATASE 94 U/L (46-116); ASPARTATE AMINOTRANSFERASE 16 U/L (15-37); B-TYPE NATRIURETIC PEPTIDE 3042 PG/ML (0-125); BILIRUBIN,TOTAL 1.8 mg/dL (0.2-1.0); CALCIUM, SERUM 8.7 mg/dL (8.5-10.1); CARBON DIOXIDE 26 mmol/L (21-32); CHLORIDE 97 mmol/L (98-107); CREATININE 0.8 mg/dL (0.6-1.3); GLUCOSE 124 mg/dL (74-106); MAGNESIUM 2.1 mg/dL (1.8-2.4); PHOSPHORUS 1.7 mg/dL (2.5-4.9); POTASSIUM 2.9 mmol/L (3.5-5.1); SODIUM SERUM 133 mmol/L (136-145); TOTAL PROTEIN, SERUM 6.5 g/dL (6.4-8.2); UREA NITROGEN, BLOOD 11 mg/dL (7-18)
[2020-12-02 21:20] LABS: CHOLESTEROL 111 mg/dL (<200); LDL 49 mg/dL (0-99); THYROID STIMULATING HORMONE 0.943 uIU/mL (0.358-3.74); TRIGLYCERIDES 173 mg/dL (30-150)
[2020-12-02 21:28] LABS: D-DIMER 3.94 mg/L(FEU (0.17-0.50)
[2020-12-02 21:33] LABS: BASOPHILS % (AUTO) 0.1 % (0.0-2.0); EOSINOPHILS % (AUTO) 1.3 % (0.0-6.0); HEMATOCRIT 33 % (33-45); HEMOGLOBIN 11.3 g/dL (11.5-14.8); LYMPHOCYTES # (AUTO) 0.7 /CMM (0.8-4.8); LYMPHOCYTES % (AUTO) 8.8 % (20.0-44.0); MEAN CORPUSCULAR HGB CONC 34 g/dl (31.0-36.0); MEAN CORPUSCULAR VOLUME 94 fL (82-100); MONOCYTES # (AUTO) 0.7 /CMM (0.1-1.30); MONOCYTES % (AUTO) 9.1 % (2.0-12.0); NEUTROPHILS # (AUTO) 6.6 /CMM (1.8-8.9); NEUTROPHILS % (AUTO) 80.7 % (43.0-81.0); PLATELET COUNT (AUTO) 66 /CMM (150-450); RED BLOOD CELL COUNT(AUTO) 3.51 MIL/uL (4.0-5.2); WHITE BLOOD COUNT (AUTO) 8.2 K/uL (4.3-11.0)
[2020-12-02 21:52] LABS: HDL CHOLESTEROL < 10 mg/dL (40-60)
--- NOTE | 2020-12-02 22:44 | NUR ---
RN NOTES HIDA SCAN RESULT RELAYED TO DR. POZO. PER MD OK TO ADVANCE DIET. D/C NPO. ALSO NOTED WITH LOW GRADE FEVER. OBTAINED ORDER FOR TYLENOL PO. ALSO SPOKE TO DR CORREA REGARDING SCAN RESULTS. MD ALSO SPOKE TO PATIENT.
--- NOTE | 2020-12-02 23:19 | NUR ---
RN NOTE RECHECKED BODY TEMP, 98.6. TYLENOL NOT GIVEN.
[2020-12-03] MEDS: ONDANSETRON HCL/PF 4 MG/2 ML VIAL IVP PRN (00:21)
[2020-12-03] MEDS: MORPHINE SULFATE INJ 2 MG/ML DISP.SYRIN IV PRN ×5 (00:23→22:21)
--- NOTE | 2020-12-03 01:49 | NUR ---
RN NOTES LAB RESULTS RELAYED TO TILE MOLDER HAND DR NOHELIA MCDANIEL. Na 133 K 2.9 Phos 1.7 BNP 3042 and procalcitonin 7.12. MD ORDERED KCL 40 MEQ PO NOW. ORDER NOTED AND CARRIED OUT.
[2020-12-03] MEDS ORDERED: POTASSIUM CHLORIDE 20 MEQ TAB.PRT.SR PO ONE (02:00)
[2020-12-03] MEDS: PIPERACILLIN /TAZOBACTAM 3.375 G in IV D5W 100 ML IV SCH ×3 (02:08→18:01)
[2020-12-03] MEDS: Potassium Chloride 20 MEQ in IV D5/ 0.9% NACL 1,000 ML IV SCH ×2 (02:50→12:30)
[2020-12-03 04:00] VITALS: BP 98/62
[2020-12-03] MEDS: PANTOPRAZOLE 40 MG VIAL IV SCH (06:25)
--- NOTE | 2020-12-03 06:54 | NUR ---
RN NOTES PT REMAIN STABLE. STILL COMPLAINED OF MILD PAIN ON ANKLE. DENIES ANY ABDOMINAL PAIN AT THIS TIME. ALL NEEDS ATTENDED. CALL LIGHT WITHIN REACH AT ALL TIMES. CONTINUE ON IVF D5NS WITH KCL 20MEQ. NO SIGNS OF INFILTRATION NOTED. DUE IV ATBS GIVEN ORDERED. NO ADVERSE SIDE EFFECTS NOTED. WILL ENDORSE TO NEXT SHIFT NURSE FOR VERONICA.
[2020-12-03 06:58] LABS: BASOPHILS % (AUTO) 0.3 % (0.0-2.0); EOSINOPHILS % (AUTO) 0.6 % (0.0-6.0); HEMATOCRIT 29 % (33-45); HEMOGLOBIN 9.8 g/dL (11.5-14.8); LYMPHOCYTES # (AUTO) 1.1 /CMM (0.8-4.8); LYMPHOCYTES % (AUTO) 17.4 % (20.0-44.0); MEAN CORPUSCULAR HGB CONC 34 g/dl (31.0-36.0); MEAN CORPUSCULAR VOLUME 94 fL (82-100); MONOCYTES # (AUTO) 0.8 /CMM (0.1-1.30); MONOCYTES % (AUTO) 13.6 % (2.0-12.0); NEUTROPHILS # (AUTO) 4.1 /CMM (1.8-8.9); NEUTROPHILS % (AUTO) 68.1 % (43.0-81.0); PLATELET COUNT (AUTO) 60 /CMM (150-450); RED BLOOD CELL COUNT(AUTO) 3.06 MIL/uL (4.0-5.2); WHITE BLOOD COUNT (AUTO) 6.1 K/uL (4.3-11.0)
[2020-12-03 07:11] LABS: CALCIUM, SERUM 7.5 mg/dL (8.5-10.1); CREATININE 0.7 mg/dL (0.6-1.3); MAGNESIUM 1.9 mg/dL (1.8-2.4); PHOSPHORUS 1.6 mg/dL (2.5-4.9); POTASSIUM 3.2 mmol/L (3.5-5.1)
[2020-12-03 08:34] LABS: BAND % (MANUAL) 6 % (0.0-5.0); LYMPHOCYTES % (MANUAL) 23 % (16-48); MONOCYTES % (MANUAL) 7 % (0-11.0); NEUTROPHILS % (MANUAL) 64 (42-76)
[2020-12-03 10:30] LABS: IRON, SERUM 53 ug/dl (50-175); TOTAL IRON BINDING CAPACITY 161 ug/dl (250-450)
[2020-12-03 10:44] LABS: FERRITIN 866 ng/mL (8-388)
[2020-12-03 12:00] VITALS: BP 100/51
[2020-12-03] MEDS: NEUTRA PHOS 1 POWD.PACKET PO SCH ×2 (12:30→18:01)
[2020-12-03 20:00] VITALS: BP_SYST 105; BP_SYST 117; BP_DIAS 54; BP_DIAS 71
[2020-12-03] MEDS: ENOXAPARIN SODIUM 40 MG/0.4 ML DISP.SYRIN SQ SCH (21:54)
[2020-12-04] MEDS: PIPERACILLIN /TAZOBACTAM 3.375 G in IV D5W 100 ML IV SCH ×3 (02:46→17:07)
[2020-12-04] MEDS: MORPHINE SULFATE INJ 2 MG/ML DISP.SYRIN IV PRN ×4 (02:57→23:43)
[2020-12-04] MEDS: ACETAMINOPHEN 325 MG TABLET PO PRN (03:49)
--- NOTE | 2020-12-04 03:52 | NUR ---
MS RN NOTES PT NOTED WITH SLIGHT FEVER. COOLING MEASURES PROVIDED. PT REFUSED TO HAVE TYLENOL AT THIS TIME. EXPLAINED TO PT IMPORTANCE OF MEDICATION IN HER POC BUT PT STILL REFUSED. WILL CONTINUE TO MONITOR.
[2020-12-04 04:00] VITALS: BP 108/62
[2020-12-04] MEDS: PANTOPRAZOLE 40 MG VIAL IV SCH (06:26)
--- NOTE | 2020-12-04 06:39 | NUR ---
MS RN NOTES AWAKE & RESPONSIVE. NOT IN ANY DISTRESS. NO SOB NOTED. DENIES ANY PAIN OR DISCOMFORT AT THIS TIME. WITH IVF INFUSING WELL. MONITORED ACCORDINGLY. CALL LIGHT WITHIN REACH. BED IN LOWEST POSITION. SR UP X 2 FOR SAFETY. WILL ENDORSE TO NEXT SHIFT.
[2020-12-04 06:46] LABS: BASOPHILS % (AUTO) 0.5 % (0.0-2.0); EOSINOPHILS % (AUTO) 0.3 % (0.0-6.0); HEMATOCRIT 27 % (33-45); HEMOGLOBIN 9.4 g/dL (11.5-14.8); LYMPHOCYTES # (AUTO) 0.7 /CMM (0.8-4.8); MEAN CORPUSCULAR HGB CONC 35 g/dl (31.0-36.0); MEAN CORPUSCULAR VOLUME 94 fL (82-100); MONOCYTES # (AUTO) 0.8 /CMM (0.1-1.30); MONOCYTES % (AUTO) 17.6 % (2.0-12.0); NEUTROPHILS % (AUTO) 65.6 % (43.0-81.0); PLATELET COUNT (AUTO) 74 /CMM (150-450); RED BLOOD CELL COUNT(AUTO) 2.88 MIL/uL (4.0-5.2); WHITE BLOOD COUNT (AUTO) 4.5 K/uL (4.3-11.0)
[2020-12-04 07:14] LABS: CALCIUM, SERUM 8.2 mg/dL (8.5-10.1); CREATININE 0.7 mg/dL (0.6-1.3); MAGNESIUM 1.9 mg/dL (1.8-2.4); PHOSPHORUS 2.5 mg/dL (2.5-4.9); POTASSIUM 3.4 mmol/L (3.5-5.1)
--- NOTE | 2020-12-04 07:31 | NUR ---
MS/RN OPENING NOTES RECEIVED PATIENT ON BED AWAKE ALERT AND ORIENTED X4. PATIENT IS ON ROOM AIR SATURATING WELL. PATIENT IN NO APPARENT RESPIRATORY DISTRESS NOTED. NO COMPLAINED OF PAIN NOTED AT THIS TIME. WILL CONTINUE TO MONITOR.
[2020-12-04] MEDS: POTASSIUM CHLORIDE 20 MEQ TAB.PRT.SR PO SCH ×2 (08:42→09:38)
[2020-12-04] MEDS: PANTOPRAZOLE 40 MG TABLET.DR PO SCH (08:42)
[2020-12-04 09:27] LABS: BAND % (MANUAL) 2 % (0.0-5.0); LYMPHOCYTES % (MANUAL) 15 % (16-48); MONOCYTES % (MANUAL) 15 % (0-11.0); NEUTROPHILS % (MANUAL) 68 (42-76)
[2020-12-04] MEDS: ONDANSETRON HCL/PF 4 MG/2 ML VIAL IVP PRN (10:54)
[2020-12-04 12:00] VITALS: BP 101/52
[2020-12-04 16:00] VITALS: BP 110/39
--- NOTE | 2020-12-04 18:25 | NUR ---
MS/RN CLOSING NOTES PATIENT IS ON BED. ALERT AND ORIENTED X4. PATIENT IS ON ROOM AIR SATURATION 98%. PATIENT IN NO APPARENT RESPIRATORY DISTRESS NOTED. NO COMPLAINED OF PAIN NOTED AT THIS TIME. IV ACCESS AT RIGHT UPPER MIDLINE # 18 G AND RIGHT HAND # 22 G PATENT AND INTACT. SEEN AND EXAMINED BY MD WITH ORDERS MADE AND CARRIED OUT. ALL DUE MEDICATIONS WAS GIVEN. SAFETY PRECAUTIONS WAS IN PLACE. BED IN LOWEST POSITION AND LOCKED. CALL LIGHT WITHIN REACH. WILL ENDORSED TO CUSTOMER BUSINESS MANAGER FOR VERONICA.
--- NOTE | 2020-12-04 19:46 | NUR ---
RN NOTE PATIENT IN BED AWAKE AND A/OX4. ON ROOM AIR SATURATION WNL. NO SOB OR ANY RESPIRATORY DISTRESS. DENIES ANY PAIN OR DISCOMFORT. IV ACCESS AT RIGHT UPPER MIDLINE # 18 G AND RIGHT HAND # 22 G PATENT AND INTACT. SAFETY PRECAUTIONS IN PLACE. BED IN LOWEST POSITION AND LOCKED. CALL LIGHT WITHIN REACH. WILL CONTINUE TO MONITOR.
[2020-12-04 20:00] VITALS: BP 105/52
[2020-12-04] MEDS: ENOXAPARIN SODIUM 40 MG/0.4 ML DISP.SYRIN SQ SCH (22:16)
[2020-12-05] MEDS: PIPERACILLIN /TAZOBACTAM 3.375 G in IV D5W 100 ML IV SCH ×2 (01:39→11:26)
[2020-12-05] MEDS: ACETAMINOPHEN 325 MG TABLET PO PRN (01:49)
[2020-12-05 04:00] VITALS: BP 104/54
--- NOTE | 2020-12-05 06:56 | NUR ---
RN NOTE PATIENT IN BED AWAKE AND A/OX4. ON ROOM AIR SATURATION 100%. NO SOB. IV ACCESS AT RIGHT UPPER MIDLINE # 18 G AND RIGHT HAND # 22 G PATENT AND INTACT. NO SIGNIFICANT CHANGES DURING THIS SHIFT. ALL NEEDS ATTENDED PROMPTLY. SAFETY PRECAUTIONS IN PLACE. BED IN LOWEST POSITION AND LOCKED. CALL LIGHT WITHIN REACH. WILL ENDORSE TO AM SHIFT.
[2020-12-05 07:08] LABS: BASOPHILS % (AUTO) 0.6 % (0.0-2.0); EOSINOPHILS % (AUTO) 0.9 % (0.0-6.0); HEMATOCRIT 28 % (33-45); HEMOGLOBIN 9.4 g/dL (11.5-14.8); LYMPHOCYTES # (AUTO) 1.5 /CMM (0.8-4.8); LYMPHOCYTES % (AUTO) 21.6 % (20.0-44.0); MEAN CORPUSCULAR HGB CONC 34 g/dl (31.0-36.0); MEAN CORPUSCULAR VOLUME 95 fL (82-100); MONOCYTES # (AUTO) 1.2 /CMM (0.1-1.30); MONOCYTES % (AUTO) 17.6 % (2.0-12.0); NEUTROPHILS % (AUTO) 59.3 % (43.0-81.0); PLATELET COUNT (AUTO) 121 /CMM (150-450); RED BLOOD CELL COUNT(AUTO) 2.89 MIL/uL (4.0-5.2); WHITE BLOOD COUNT (AUTO) 6.8 K/uL (4.3-11.0)
--- NOTE | 2020-12-05 07:30 | NUR ---
RN OPENING NOTES RECEIVED PT IN BED, AWAKE. A/O X4. ON ROOM AIR SATURATION @99%. NO SOB OR ANY RESPIRATORY DISTRESS. COMPLAINS OF PAIN, MEDS GIVEN. IV ACCESS AT NAOMI MIDLINE #18 AND R HAND #22 INTACT, PATENT AND FLUSHED. SAFETY PRECAUTIONS IN PLACE. CALL LIGHT WITHIN REACH. BED LOCKED AND IN LOWEST POSITION WITH SIDE RAILS UP X2. WILL CONTINUE TO MONITOR.
[2020-12-05 07:48] LABS: CALCIUM, SERUM 8.7 mg/dL (8.5-10.1); CREATININE 0.6 mg/dL (0.6-1.3); MAGNESIUM 2.2 mg/dL (1.8-2.4); PHOSPHORUS 3.8 mg/dL (2.5-4.9); POTASSIUM 3.5 mmol/L (3.5-5.1)
[2020-12-05] MEDS: PANTOPRAZOLE 40 MG TABLET.DR PO SCH (09:03)
[2020-12-05] MEDS: ONDANSETRON HCL/PF 4 MG/2 ML VIAL IVP PRN ×2 (09:09→15:18)
[2020-12-05] MEDS: MORPHINE SULFATE INJ 2 MG/ML DISP.SYRIN IV PRN ×2 (09:09→15:18)
[2020-12-05 12:00] VITALS: BP 112/64
--- NOTE | 2020-12-05 18:00 | NUR ---
RN CLOSING NOTES DISCHARGED PT TO HOME IN STABLE CONDITION. ACCOMPANIED BY DAD IN A PRIVATE CAR. DISCHARGE INSTRUCTIONS GIVEN TO PT. VERBALIZED UNDERSTANDING. NO PAIN REPORTED. SKIN IS INTACT. REFUSED PICTURE TAKEN FOR BOTH HANDS. NO SWELLING NOTED. FLU VACCINE GIVEN LAST NOVEMBER 2020. NOT A CANDIDATE FOR PNEUMO VACCINE, AGE <65. BELONGINGS LIST SIGNED.
== END 2020-12-05 17:52 | disposition home or self-care (01) | DRG 720 ==
LOC: ER 17:39 → MED 22:49 → MEDSG1 12-02 00:17 → TELE1 12-02 00:43 → MEDSG1 12-02 09:36
PROVIDERS: ADMIT Internal Medicine; ATTEND Student in an Organized Health Care Education/Training Program
PROC: 05HY33Z Insertion of Infusion Device into Upper Vein, Percutaneous Approach (ICD-10-PCS; principal; 2020-12-02)
DX: A41.9 Sepsis, unspecified organism (principal); K80.00 Calculus of gallbladder with acute cholecystitis without obstruction; Z20.822 Contact with and (suspected) exposure to COVID-19; Z95.2 Presence of prosthetic heart valve; D64.9 Anemia, unspecified; D69.6 Thrombocytopenia, unspecified; E87.1 Hypo-osmolality and hyponatremia; I50.22 Chronic systolic (congestive) heart failure; Z95.810 Presence of automatic (implantable) cardiac defibrillator; N17.0 Acute kidney failure with tubular necrosis; I42.9 Cardiomyopathy, unspecified; E11.22 Type 2 diabetes mellitus with diabetic chronic kidney disease; F90.9 Attention-deficit hyperactivity disorder, unspecified type; J30.81 Allergic rhinitis due to animal (cat) (dog) hair and dander; Z79.51 Long term (current) use of inhaled steroids; Z79.899 Other long term (current) drug therapy; Z79.4 Long term (current) use of insulin; Z79.02 Long term (current) use of antithrombotics/antiplatelets; E78.5 Hyperlipidemia, unspecified; E83.42 Hypomagnesemia; E86.1 Hypovolemia; E87.6 Hypokalemia; E66.9 Obesity, unspecified; G40.909 Epilepsy, unspecified, not intractable, without status epilepticus; Z79.01 Long term (current) use of anticoagulants; Z86.14 Personal history of Methicillin resistant Staphylococcus aureus infection; Z86.73 Personal history of transient ischemic attack (TIA), and cerebral infarction without residual deficits; Z86.79 Personal history of other diseases of the circulatory system; Z68.27 Body mass index [BMI] 27.0-27.9, adult; E87.2 Acidosis; F17.210 Nicotine dependence, cigarettes, uncomplicated; E11.42 Type 2 diabetes mellitus with diabetic polyneuropathy; I48.91 Unspecified atrial fibrillation; N18.9 Chronic kidney disease, unspecified; F19.10 Other psychoactive substance abuse, uncomplicated; N05.9 Unspecified nephritic syndrome with unspecified morphologic changes; Z87.19 Personal history of other diseases of the digestive system; D62 Acute posthemorrhagic anemia; B96.89 Other specified bacterial agents as the cause of diseases classified elsewhere; R65.21 Severe sepsis with septic shock; J90 Pleural effusion, not elsewhere classified; G93.41 Metabolic encephalopathy
CPT/HCPCS: 36415; 71045-TC; 76705-TC; 78226; 80048-TC; 80053-TC; 80061-TC; 80076-TC; 81001; 82728-TC; 83540-TC; 83605-TC; 83690-TC; 83735-TC; 83880; 84100-TC; 84443-TC; 84484-TC; 84703-TC; 85025-TC; 85378-TC; 85610-TC; 86803; 87040-TC; 87081-TC; 93307-TC; C9113; C9803; G0378; J1650; J2270; J2405; J2543; J3370; J3480; J7030; J7042; J7050; J7060

== ENCOUNTER 2020-12-11 16:13 | Inpatient (IN) | payer OTHER ==
[~2020-12-11] VITALS: Ht 165.1 cm; Wt 70.3 kg
[~2020-12-11 16:13] MED LIST changes: -DAPT500V2 IV; -METO25TA20 PO
[2020-12-11] MEDS ORDERED: ONDANSETRON HCL/PF 4 MG/2 ML VIAL ONE (17:17)
[2020-12-11] MEDS ORDERED: IV NS 0.9% 1,000 ML BAG IV ONE (17:30)
[2020-12-11] MEDS ORDERED: ONDANSETRON HCL/PF 4 MG/2 ML VIAL IVP ONE (17:30)
--- NOTE | 2020-12-11 17:38 | NUR ---
BIBS FROM HOME TO ER BED 1. AAOX4. NOT IN RESP DISTRESS. AMBULATORY. CAME IN FOR RUQ INTERMITENT ABDOMINAL PAIN. PT WAS HERE LAST WEEK AND SUPPOSED TO HAVE A GALLBLADDER SURGERY BUT DID NOT HAPPEN. PT IS STILL COMPLAINING OF THE SAME. PT REPORTS NAUSEA. PTIS ALSO NOTED DIAPHORETIC. HR NOTED 102. PROVIDER WAS AT THE BEDSIDE FOR EVAL. ORDERS RECEIVED, NOTED AND CARRIED OUT. IV LINE ESTABLSIHED ON R WRIST 20G, BLOOD DRAWN AND SENT TO LAB
[2020-12-11] MEDS ORDERED: LIDO30AD10 TP (17:41)
[2020-12-11] MEDS ORDERED: GABA-532 PO (17:41)
[2020-12-11 17:43] LABS: BASOPHILS # (AUTO) 0.1 /CMM (0.0-0.2); BASOPHILS % (AUTO) 0.4 % (0.0-2.0); EOSINOPHILS % (AUTO) 0.1 % (0.0-6.0); HEMATOCRIT 32 % (33-45); HEMOGLOBIN 10.5 g/dL (11.5-14.8); LYMPHOCYTES # (AUTO) 0.9 /CMM (0.8-4.8); LYMPHOCYTES % (AUTO) 4.9 % (20.0-44.0); MEAN CORPUSCULAR HGB CONC 33 g/dl (31.0-36.0); MEAN CORPUSCULAR VOLUME 95 fL (82-100); MONOCYTES # (AUTO) 1.4 /CMM (0.1-1.30); MONOCYTES % (AUTO) 7.5 % (2.0-12.0); NEUTROPHILS # (AUTO) 16.5 /CMM (1.8-8.9); NEUTROPHILS % (AUTO) 87.1 % (43.0-81.0); PLATELET COUNT (AUTO) 175 /CMM (150-450); RED BLOOD CELL COUNT(AUTO) 3.35 MIL/uL (4.0-5.2); WHITE BLOOD COUNT (AUTO) 18.9 K/uL (4.3-11.0)
[2020-12-11 17:49] LABS: CALCIUM, SERUM 8.7 mg/dL (8.5-10.1); CARBON DIOXIDE 22 mmol/L (21-32); CHLORIDE 97 mmol/L (98-107); GLUCOSE 130 mg/dL (74-106); POTASSIUM 3.6 mmol/L (3.5-5.1); SODIUM SERUM 130 mmol/L (136-145); UREA NITROGEN, BLOOD 14 mg/dL (7-18)
[2020-12-11 17:50] LABS: BILIRUBIN,URINE SMALL (NEGATIVE); COLOR,URINE YELLOW (YELLOW); LEUKOCYTE ESTERASE ,URINE TRACE (NEGATIVE); NITRITE, URINE NEGATIVE (NEGATIVE); PH,URINE 5.5 (5.0-8.0); PROTEIN,URINE 100 mg/dl (NEGATIVE); UGLUCOSE NEGATIVE (NEGATIVE)
[2020-12-11 17:59] LABS: ALANINE AMINOTRANSFERASE 42 U/L (12-78); ALBUMIN 3.2 g/dL (3.4-5.0); ALKALINE PHOSPHATASE 141 U/L (46-116); ASPARTATE AMINOTRANSFERASE 29 U/L (15-37); BILIRUBIN,DIRECT 0.9 mg/dL (0.0-0.2); BILIRUBIN,TOTAL 1.9 mg/dL (0.2-1.0); TOTAL PROTEIN, SERUM 8.1 g/dL (6.4-8.2)
[2020-12-11 18:03] LABS: BACTERIA,URINE 2+ /HPF (None Seen); MUCUS,URINE Many /LPF (None Seen)
--- NOTE | 2020-12-11 18:08 | NUR ---
US AT BEDSIDE. COVID SWAB DONE AND SENT TO LAB
[2020-12-11] MEDS ORDERED: PIPERACILLIN /TAZOBACTAM 3.375 G VIAL IV ONE ×2 (18:27→23:06)
[2020-12-11] MEDS ORDERED: MAG HYDROX/AL HYDROX/SIMETH 30 ML UDC PO PRN (18:30)
[2020-12-11] MEDS ORDERED: PIPERACILLIN /TAZOBACTAM 3.375 G in IV D5W 50 ML IV ONE (18:30)
[2020-12-11] MEDS ORDERED: Z GUARD REMEDY 2 OZ OINT TP PRN (18:30)
[2020-12-11] MEDS ORDERED: MAGNESIUM HYDROXIDE 30 ML UDC PO PRN (18:30)
[2020-12-11] MEDS ORDERED: IV NS 0.9% 1,000 ML IV PRN (18:30)
[2020-12-11] MEDS ORDERED: ACETAMINOPHEN 325 MG TABLET PO PRN (18:30)
[2020-12-11] MEDS ORDERED: ONDANSETRON HCL/PF 4 MG/2 ML VIAL IVP PRN (18:30)
[2020-12-11] MEDS ORDERED: ZOLPIDEM TARTRATE 5 MG TABLET PO PRN (18:30)
[2020-12-11] MEDS ORDERED: HYDROCODONE/APAP 5/325MG TABLET PO PRN (18:30)
--- NOTE | 2020-12-11 18:48 | NUR ---
Petey gerard in [facility] - 12/11/20 at 1850 by STEVEN BED 102
--- NOTE | 2020-12-11 18:50 | NUR ---
BED 109
--- NOTE | 2020-12-11 19:16 | NUR ---
CALLED SURGERY DR. RAMOS [phone] LEFT [facility] [place].
--- NOTE | 2020-12-11 19:16 | NUR ---
Call from lab. Rapid covid negative.
--- NOTE | 2020-12-11 19:40 | NUR ---
ROOM ASSIGNMENT: [id number]
--- NOTE | 2020-12-11 19:51 | NUR ---
REPORT GIVEN TO OLY CAMPO FOR VERONICA
[2020-12-11 20:00] VITALS: BP 92/53
[2020-12-11] MEDS ORDERED: MORPHINE SULFATE INJ 2 MG/ML DISP.SYRIN IV ONE (20:00)
[2020-12-11] MEDS ORDERED: ONDANSETRON HCL/PF 4 MG/2 ML VIAL IV ONE (20:00)
[2020-12-11] MEDS ORDERED: IV D5/0.45 NACL 1,000 ML IV ONE (20:00)
--- NOTE | 2020-12-11 20:00 | NUR ---
TELE/RN OPENING NOTES RECEIVED REPORT FROM ED RN DEJUAN. PATIENT COMING TO ROOM 311, PATIENT ARRIVED ON UNIT VIA WHEEL CHAIR. PATIENT SUSTAINED NO INJURIES DURING TRANSPORT. PATIENT ALERT AND ORIENTED X 4. PATIENT STABLE ON ROOM AIR. PATIENT BREATHING IS EVEN AND UNLABORED. NO SIGNS OF SOB OR RESPIRATORY DISTRESS NOTED. PATIENT STATES NAUSEA NO EPISODE OF VOMITING, AND PAIN ABDOMINAL AREA. PATIENT HAS BELONGINGS AT BEDSIDE. PATIENT ABLE TO AMBULATE BY SELF, STEADY GAIT. SAFETY MEASURES ARE IN PLACED BED IS LOCKED AND PLACED IN THE LOW POSITION, CALL LIGHT IS WITHIN REACH, SIDE RAILS UP X 2. WILL CONTINUE WITH PATIENT PLAN OF CARE.
[2020-12-11] MEDS: ZOSYN IVPB 3.375 G in IV D5W 50ml IV SCH (23:51)
[2020-12-11 23:59] VITALS: BP 100/50
[2020-12-12] MEDS ORDERED: PIPERACILLIN /TAZOBACTAM 3.375 G in IV D5W 50 ML IV SCH
[2020-12-12] MEDS: HYDROMORPHONE INJ 2 MG/ML DISP.SYRIN IV PRN ×4 (01:28→19:35)
--- NOTE | 2020-12-12 01:31 | NUR ---
RN NOTES COMPLAINED OF ABDOMINAL PAIN- DILAUDID 0.5MG IV GIVEN, V/S STABLE
[2020-12-12 04:00] VITALS: BP 94/50
[2020-12-12] MEDS ORDERED: PIPERACILLIN /TAZOBACTAM 3.375 G VIAL IV ONE (05:07)
[2020-12-12] MEDS: ZOSYN IVPB 3.375 G in IV D5W 50ml IV SCH (05:37)
--- NOTE | 2020-12-12 06:30 | NUR ---
RN NOTES COMPLAINED OF ABDOMINAL PAIN- DILAUDID 0.5MG IV GIVEN, V/S STABLE.
[2020-12-12 06:42] LABS: BASOPHILS % (AUTO) 0.4 % (0.0-2.0); EOSINOPHILS % (AUTO) 0.1 % (0.0-6.0); HEMATOCRIT 25 % (33-45); HEMOGLOBIN 8.5 g/dL (11.5-14.8); LYMPHOCYTES % (AUTO) 11.4 % (20.0-44.0); MEAN CORPUSCULAR HGB CONC 34 g/dl (31.0-36.0); MEAN CORPUSCULAR VOLUME 96 fL (82-100); MONOCYTES # (AUTO) 0.6 /CMM (0.1-1.30); MONOCYTES % (AUTO) 6.8 % (2.0-12.0); NEUTROPHILS # (AUTO) 7.4 /CMM (1.8-8.9); NEUTROPHILS % (AUTO) 81.3 % (43.0-81.0); PLATELET COUNT (AUTO) 114 /CMM (150-450); RED BLOOD CELL COUNT(AUTO) 2.65 MIL/uL (4.0-5.2); WHITE BLOOD COUNT (AUTO) 9.1 K/uL (4.3-11.0)
--- NOTE | 2020-12-12 06:45 | NUR ---
MS/RN CLOSING NOTES PATIENT IN BED RESTING. PATIENT IS ALERT AND ORIENTED X 4. PATIENT BREATHING IS EVEN AND UNLABORED. NO SOB OR RESPIRATORY DISTRESS NOTED. PATIENT NEEDS MET DURING SHIFT. PATIENT HAS NS RUNNING AT 95 ML/HR RIGHT WRIST 20G IV ACCESS. SAFETY MEASURES ARE IN PLACE, BED IS LOCKED AND PLACED IN THE LOW POSITION, SIDE RAILS UP X 2, CALL LIGHT IS WITHIN REACH. WILL ENDORSE CARE TO DAY SHIFT NURSE.
[2020-12-12 06:48] LABS: CHOLESTEROL 101 mg/dL (<200); LDL 64 mg/dL (0-99); TRIGLYCERIDES 89 mg/dL (30-150)
[2020-12-12 06:49] LABS: ALANINE AMINOTRANSFERASE 27 U/L (12-78); ALBUMIN 2.3 g/dL (3.4-5.0); ALKALINE PHOSPHATASE 99 U/L (46-116); ASPARTATE AMINOTRANSFERASE 17 U/L (15-37); BILIRUBIN,TOTAL 1.1 mg/dL (0.2-1.0); CALCIUM, SERUM 7.3 mg/dL (8.5-10.1); CARBON DIOXIDE 23 mmol/L (21-32); CHLORIDE 100 mmol/L (98-107); CREATININE 0.7 mg/dL (0.6-1.3); GLUCOSE 284 mg/dL (74-106); HDL CHOLESTEROL < 10 mg/dL (40-60); LIPASE 120 U/L (73-393); PHOSPHORUS 2.8 mg/dL (2.5-4.9); POTASSIUM 3.4 mmol/L (3.5-5.1); SODIUM SERUM 133 mmol/L (136-145); TOTAL PROTEIN, SERUM 6.4 g/dL (6.4-8.2); UREA NITROGEN, BLOOD 9 mg/dL (7-18)
--- NOTE | 2020-12-12 07:02 | NUR ---
SPA ATTENDANT OPENING NOTE RECEIVED PATIENT AWAKE IN BED. A/O X4. PT STABLE ON ROOM AIR. NO SOB NOTED. NO S/S OF RESPIRATORY DISTRESS. PATIENT IS ON EXTERNAL TELE MOBILE HOME TECHNICIAN READING [address] 101, V-PACING WITH BBB. NO C/O PAIN AT THIS TIME. IV ACCESS ON RIGHT WRIST 20G INTACT, PATENT AND FLUSHING WELL. NS RUNNING AT 95 ML/HR. SAFETY MEASURES MAINTAINED AT ALL TIMES. BED IN LOWEST LOCKED POSITION. SIDE RAILS UP X2. CALL LIGHT AND TABLE WITHIN REACH. WILL CONTINUE WITH PLAN OF CARE.
[2020-12-12 08:00] VITALS: BP 90/50
--- NOTE | 2020-12-12 10:47 | NUR ---
PT REQUESTED TO REMOVED IV ACCESS ON RIGHT WRIST, STATING "IT HURTS WHEN I MOVE MY WRIST", IV REMOVED, PRESSURE APPLIED, SECURED WITH GAUZE AND TAPE. NO S/O BLEEDING OR INFILTRATION NOTED. WILL CONTINUE TO MONITOR
--- NOTE | 2020-12-12 10:50 | NUR ---
INSERTED IV IN LEFT HAND G#20, GOOD BLOOD RETURN NOTED, IV INTACT PATENT AND FLUSHING WELL. PT TOLERATED WELL, WILL CONTINUE WITH PLAN OF CARE
[2020-12-12] MEDS ORDERED: POTASSIUM CL. PREMIX PERIPHER. 50 ML IV SCH (12:30)
--- NOTE | 2020-12-12 12:48 | NUR ---
DATABASE SOFTWARE TECHNICIAN PAIN PT C/O HEADACHE, RATED 8/10 ON PAIN SCALE. PT WAS CRYING AND GRASPING SITE. VS WNL. PER PT REQUEST, ADMINISTERED DILAUDID 0.5 MG IV Q4H PRN AT THIS TIME. WILL CONTINUE TO MONITOR.
--- NOTE | 2020-12-12 13:10 | NUR ---
PT REQUESTED TO STOP POTASSIUM CHLORIDE IV AT THIS TIME. PT STATED "IT HURTS." NO S/S OF INFILTRATION. IV STOPPED PER PT REQUEST. WILL CONTINUE WITH PLAN OF CARE.
[2020-12-12] MEDS: PIPERACILLIN /TAZOBACTAM 3.375 G in IV D5W 100 ML IV SCH ×2 (13:16→20:06)
--- NOTE | 2020-12-12 13:30 | NUR ---
PT POST VOID RESIDUAL BLADDER SCAN OF 427ML, PT REFUSED STRAIGHT CATH PER ORDER STATING "I WILL GO TAKE A PEE". PTS EDUCATION PROVIDED. WILL CONTINUE WITH PLAN OF CARE
[2020-12-12] MEDS ORDERED: POTASSIUM CHLORIDE 20 MEQ TAB.PRT.SR PO ONE (14:00)
[2020-12-12 16:00] VITALS: BP 102/52
--- NOTE | 2020-12-12 18:41 | NUR ---
PT NOTED WITH TEMP OF 101.3 AT THIS TIME. COOLING MEASURES IN PLACE, SHEETS UNCOVERED, ROOM KEPT COOL, ICE PACK UNDER ARMS. PT REFUSED TYLENOL. EDUCATION ON BENEFITS AND RISKS OF REFUSING MEDICATION ADMINISTRATION PROVIDED. PT VERBALIZED UNDERSTANDING. WILL CONTINUE TO MONITOR AND CONTINUE WITH PLAN OF CARE
--- NOTE | 2020-12-12 19:05 | NUR ---
ENGINE INSTALLER CLOSING NOTES PT AWAKE IN BED AT THIS TIME. PT REMAINED STABLE THROUGHOUT SHIFT. ALL CARE, NEEDS, MEDICATIONS AND TREATMENT ADMINISTERED ANTICIPATED PER ORDER. SAFETY PRECAUTIONS IN PLACE AND MAINTAINED AT ALL TIMES. BED IN LOWEST LOCKED POSITION, HOB ELEVATED, SIDE RAILS UPX2, CALL LIGHT AND TABLE WITHIN REACH. WILL ENDORSE TO AUTOMOTIVE PARTS SPECIALIST NURSE FOR VERONICA
--- NOTE | 2020-12-12 19:24 | NUR ---
REASSESS TEMP AT THIS TIME. TEMP OF 99.0, AT THIS TIME. COOLING MEASURES IN PLACE, SHEETS UNCOVERED, ROOM KEPT COOL, ICE PACK UNDER ARMS. PT DENIES TYLENOL. EDUCATION ON BENEFITS AND RISKS OF REFUSING MEDICATION ADMINISTRATION PROVIDED. PT VERBALIZED UNDERSTANDING. WILL CONTINUE TO MONITOR AND CONTINUE WITH PLAN OF CARE Addendum: 12/12/20 at 1927 by RADHA ANNE RN REASSESS TEMP AT THIS TIME. TEMP OF 99.0, AT THIS TIME. COOLING MEASURES IN PLACE, SHEETS UNCOVERED, ROOM KEPT COOL, ICE PACK UNDER ARMS. PT DENIES TYLENOL. EDUCATION ON BENEFITS AND RISKS OF REFUSING MEDICATION ADMINISTRATION PROVIDED. PT VERBALIZED UNDERSTANDING. ENDORSED TO OLY WARD FOR VERONICA
--- NOTE | 2020-12-12 19:36 | NUR ---
PT C/O ACHING ABDOMINAL PAIN OF 8/10. PT IS GUARDED AND IRRITABLE. VS BP 113/64, HR 119, RR 20, T 99.0 SPO2 98%. PER PT REQUEST, DILAUDID 0.5 MG IV Q4H PRN FOR PAIN ADMINISTERED AT THIS TIME. ENDORSED TO OLY CALDERON FOR VERONICA.
--- NOTE | 2020-12-12 19:40 | NUR ---
hourly shift manager opening notes Received Pt from morning nurse. Pt is sitting in bed comfortably. Pt is alert and orientedX4. Respiration is normal in room air with O2 sat is 98%. No SOB. No S/S of distress noted. Vs is stable. Afebrile. Per am nurse Pt received dilaudid for pain. IV site at L hand # 20 is clean, intact and flushes well, SL. Tele monitor showed Stachy V-pacing with BBB HR at 113. Safety precautions is maintained. Bed at low position, brakes locked, side rails upX2 and call light is within reach. Will continue to monitor.
[2020-12-12 20:00] VITALS: BP 114/71
--- NOTE | 2020-12-12 20:45 | NUR ---
lead teacher notes Pt went to the bathroom and urinated. Pt stated " I don't have problem urinating." Will continue to monitor.
[2020-12-13] VITALS: BP 101/51
--- NOTE | 2020-12-13 00:07 | NUR ---
director workforce management notes Zosyn abx is finished transfuising and continue on IV fluid NS@ 95 ml/hr.
[2020-12-13] MEDS: HYDROMORPHONE INJ 2 MG/ML DISP.SYRIN IV PRN ×4 (00:19→15:25)
--- NOTE | 2020-12-13 00:19 | NUR ---
heavy rail train operator notes Pt is complaining of pain on her abdomen 10/10 on pain scale and requesting dilaudid. Administered dilaudid 0.5 mg/iv push/prn as ordered for pain. Explained risks and benefits. Pt verbalize understanding. Safety precautions is maintained. Will continue to monitor. Addendum: 12/13/20 at 0030 by ED BRIAN RN BP 114/66 and pulse 96.
[2020-12-13 00:20] VITALS: BP 114/66
[2020-12-13 04:00] VITALS: BP 103/44
--- NOTE | 2020-12-13 04:00 | NUR ---
pairer odds notes Pt refused to be NPO. Pt gets agitated easily. Pt only been npo for 4 hours. Explained risks and benefits. Pt keep refusing. Charge nurse is aware and informed. Will continue to monitor.
[2020-12-13] MEDS: PIPERACILLIN /TAZOBACTAM 3.375 G in IV D5W 100 ML IV SCH ×2 (04:17→13:00)
--- NOTE | 2020-12-13 04:45 | NUR ---
childcare administrator notes Pt refused to have IV abx zosyn. Pt gets agitated easily. Explained risks and benefits. Pt keep refusing. Will continue to monitor.
--- NOTE | 2020-12-13 06:45 | NUR ---
porcelain enamel repairer closing notes Pt is resting in bed comfortably. Pt is alert and orientedX4 and agitated easily. Respiration is normal in room air with O2 sat is 99%. No SOB. No S/S of distress noted. Vs is stable. Afebrile. Routine meds were given as ordered. IV site at L hand # 20 is clean, intact and flushes well, infuising well NS@ 95 ml/hr. Tele monitor showed Stachy V-pacing HR at 110. Kept Pt clean, dry and comfortable. Safety precautions is maintained. Bed at low position, brakes locked, side rails upX2 and call light is within reach. Will endorse to morning nurse for VERONICA.
[2020-12-13 06:48] LABS: CALCIUM, SERUM 7.7 mg/dL (8.5-10.1); CREATININE 0.7 mg/dL (0.6-1.3); POTASSIUM 3.2 mmol/L (3.5-5.1)
--- NOTE | 2020-12-13 06:55 | NUR ---
director information security notes Received a phone call from hitesh Thompson. Donna informed Pt two blood cx resulted gram negative rods. Charge nurse is aware and informed. Will endorse to morning nurse.
--- NOTE | 2020-12-13 07:39 | NUR ---
VARITYPIST OPENING NOTES Pt is sitting in bed comfortably. Pt is alert and orientedX4. Respiration is normal in room air with O2 sat is 98%. No SOB. No S/S of distress noted. Vs is stable. Afebrile. Pt receives dilaudid for pain Q4H. IV site at L hand # 20 is clean, intact and flushes well, SL. Tele monitor showed tachy V-pacing with BBB HR at 113. Safety precautions is maintained. Bed at low position, brakes locked, side rails upX2 and call light is within reach. Will continue to monitor.
[2020-12-13 08:00] VITALS: BP 102/65
[2020-12-13] MEDS: POTASSIUM CHLORIDE 20 MEQ TAB.PRT.SR PO SCH ×3 (09:58→11:00)
--- NOTE | 2020-12-13 11:00 | NUR ---
RN NOTES 2ND DOSE K DUR PO NOT GIVEN, MED ACCIDENTLY DROPPED, MED REORDERED
[2020-12-13 12:04] VITALS: BP 97/57
[2020-12-13] MEDS ORDERED: POTASSIUM CHLORIDE 20 MEQ TAB.PRT.SR PO ONE (13:00)
[2020-12-13] MEDS ORDERED: HYDR-3972 PO (15:00)
[2020-12-13] MEDS ORDERED: AMOX-430 PO (15:00)
[2020-12-13] MEDS ORDERED: GABAPENTIN 100 MG CAPSULE PO PRN (15:00)
[2020-12-13] MEDS ORDERED: ONDA4TAB5 PO (15:00)
[2020-12-13] MEDS ORDERED: LIDOCAINE 5% (PATCH) 1 EA PATCH TP PRN (15:00)
--- NOTE | 2020-12-13 16:25 | NUR ---
RN MS DISCHARGE NOTE PT AWAKE, ALERT , RESPONSIVE, AMBULATES IN ROOM WITH STEADY GAIT, PAIN MEDS GIVEN FOR PAIN MANAGEMENT ,ON FULL LIQUID DIET TOLERATED WELL, SEEN BY DR ROCK, DISCHARGE ORDER GIVEN , DISCHRAGE AND MED INSTRUCTIONS PROVIDED TO PATIENT, VERBALIZED UNDERSTANDING, BELONGINGS ACCOUNTED FOR , ASSISTED TO HOSPITAL LOBBY , LEFT VIA PRIVATE CAR IN STABLE CONDITION
[2020-12-14] MEDS ORDERED: LEVO500T90 PO (17:07)
== END 2020-12-13 16:20 | disposition home or self-care (01) | DRG 720 ==
LOC: ER 16:16 → TELE 19:41
PROVIDERS: ADMIT Nurse Practitioner Acute Care; ATTEND Nurse Practitioner Acute Care
DX: A41.9 Sepsis, unspecified organism (principal); I42.9 Cardiomyopathy, unspecified; K80.12 Calculus of gallbladder with acute and chronic cholecystitis without obstruction; E87.1 Hypo-osmolality and hyponatremia; K76.0 Fatty (change of) liver, not elsewhere classified; K80.10 Calculus of gallbladder with chronic cholecystitis without obstruction; D64.9 Anemia, unspecified; E87.6 Hypokalemia; Z87.891 Personal history of nicotine dependence; Z88.1 Allergy status to other antibiotic agents; F19.11 Other psychoactive substance abuse, in remission; E80.6 Other disorders of bilirubin metabolism; Z20.822 Contact with and (suspected) exposure to COVID-19; Z95.2 Presence of prosthetic heart valve; J98.11 Atelectasis; N39.0 Urinary tract infection, site not specified; Z95.0 Presence of cardiac pacemaker
CPT/HCPCS: 36415; 71045-TC; 76705-TC; 78226; 80048-TC; 80053-TC; 80061-TC; 80076-TC; 81001; 83605-TC; 83690-TC; 83735-TC; 84100-TC; 84484-TC; 84702-TC; 85025-TC; 85730-TC; 87040-TC; 87081-TC; 87086-TC; A9537; C9803; G0378; J1170; J2270; J2405; J2543; J3480; J3490; J7030; J7060

== ENCOUNTER 2020-12-14 15:01 | Emergency (ER) | payer OTHER ==
[~2020-12-14] VITALS: Ht 165.1 cm; Wt 57.6 kg
[~2020-12-14 15:01] MED LIST changes: +AMOX-430 PO; +GABA-532 PO; +HYDR-3972 PO; +ONDA4TAB5 PO
[2020-12-14 15:08] VITALS: BP 119/64
--- NOTE | 2020-12-14 15:42 | NUR ---
phleb at bedside.
[2020-12-14 15:49] LABS: BASOPHILS # (AUTO) 0.1 /CMM (0.0-0.2); BASOPHILS % (AUTO) 0.7 % (0.0-2.0); EOSINOPHILS % (AUTO) 0.2 % (0.0-6.0); HEMATOCRIT 26 % (33-45); HEMOGLOBIN 8.7 g/dL (11.5-14.8); LYMPHOCYTES # (AUTO) 0.9 /CMM (0.8-4.8); LYMPHOCYTES % (AUTO) 9.7 % (20.0-44.0); MEAN CORPUSCULAR HGB CONC 34 g/dl (31.0-36.0); MEAN CORPUSCULAR VOLUME 96 fL (82-100); MONOCYTES # (AUTO) 0.6 /CMM (0.1-1.30); MONOCYTES % (AUTO) 6.2 % (2.0-12.0); NEUTROPHILS # (AUTO) 7.7 /CMM (1.8-8.9); NEUTROPHILS % (AUTO) 83.2 % (43.0-81.0); PLATELET COUNT (AUTO) 154 /CMM (150-450); RED BLOOD CELL COUNT(AUTO) 2.69 MIL/uL (4.0-5.2); WHITE BLOOD COUNT (AUTO) 9.3 K/uL (4.3-11.0)
[2020-12-14 15:57] LABS: CALCIUM, SERUM 8.7 mg/dL (8.5-10.1); CREATININE 0.7 mg/dL (0.6-1.3); POTASSIUM 3.5 mmol/L (3.5-5.1)
[2020-12-14] MEDS ORDERED: LEVO500T90 PO (17:07)
[2020-12-14] MEDS ORDERED: CEFTRIAXONE 1 G VIAL ONE (17:08)
[2020-12-14] MEDS ORDERED: LIDOCAINE /MPF 1% VIAL 5 ML VIAL ONE (17:08)
[2020-12-14] MEDS ORDERED: CEFTRIAXONE 1 G VIAL IM ONE (17:30)
--- NOTE | 2020-12-14 17:54 | NUR ---
Patient discharged to home in stable condition. Written and verbal after care instructions given. Patient verbalizes understanding of instruction. Pt ambulatory with a steady gait
== END 2020-12-14 17:55 | disposition home or self-care (01) ==
LOC: ER 15:01
DX: R78.81 Bacteremia (principal); Z95.0 Presence of cardiac pacemaker; Z88.1 Allergy status to other antibiotic agents; Z91.048 Other nonmedicinal substance allergy status; Z79.899 Other long term (current) drug therapy
CPT/HCPCS: 36415; 80048; 85025; 87040 ×2; 96372; 99283; J0696; J3490

== ENCOUNTER 2020-12-23 13:53 | Inpatient (IN) | payer OTHER ==
[~2020-12-23] VITALS: Ht 160 cm; Wt 71.3 kg
[~2020-12-23 13:53] MED LIST changes: -ACET325T53 PO; -ALBUT2 NEB; -ASCO500T10 PO; -BALS60OI4 TP; -CLOT15CR35 TP; -DIPH28.33 TP; -DOCU100C36 PO; -ENOX40DI SQ; -FAMO20TA8 PO; -FOLI10PO5 PO; -FURO40TA5 PO; -INSU100V39 SQ; +LEVO500T90 PO; -LORA10TA7 PO; -NYST15PO4 TP; -ZINC1CAP2 PO
--- NOTE | 2020-12-23 14:35 | NUR ---
urine collected and sent to the lab
--- NOTE | 2020-12-23 14:58 | NUR ---
BIBS FROM HOME TO ER BED 8. AAOX4. NOT IN RESP DISTRESS, BREATHING EVENA DN UNLABORED. AMBULATORY. CAME IN FOR UNRESOLVED FEVER. PTWAS HERE BACK ON DECEMBER 11 AND DISCHARGED WITH ATB FOR A BLOOD INFECTION. PT REPORTS THAT EVER SINCE SHE LEFT, THE FEVER IS STILL GOING ON DESPITE BEING ON ATB. PT HAVE ORAL TEMP OF 97.8. MD WAS AT THE BEDSIDE FOR EVAL. ORDERS RECEIVED, NOTED AND CARRIED OUT. IV LINE ESTABLISHED ON R WRIST 20G, BLOOD DRAWN AND GIVEN TO PHLEB AT BEDSIDE.
[2020-12-23 15:12] LABS: BASOPHILS # (AUTO) 0.1 /CMM (0.0-0.2); BASOPHILS % (AUTO) 0.4 % (0.0-2.0); EOSINOPHILS % (AUTO) 0.3 % (0.0-6.0); HEMATOCRIT 30 % (33-45); HEMOGLOBIN 9.4 g/dL (11.5-14.8); LYMPHOCYTES # (AUTO) 1.3 /CMM (0.8-4.8); LYMPHOCYTES % (AUTO) 8.9 % (20.0-44.0); MEAN CORPUSCULAR HGB CONC 32 g/dl (31.0-36.0); MEAN CORPUSCULAR VOLUME 97 fL (82-100); MONOCYTES # (AUTO) 0.8 /CMM (0.1-1.30); MONOCYTES % (AUTO) 5.4 % (2.0-12.0); NEUTROPHILS # (AUTO) 12.7 /CMM (1.8-8.9); PLATELET COUNT (AUTO) 147 /CMM (150-450); RED BLOOD CELL COUNT(AUTO) 3.05 MIL/uL (4.0-5.2); WHITE BLOOD COUNT (AUTO) 14.9 K/uL (4.3-11.0)
[2020-12-23 15:20] LABS: BILIRUBIN,URINE NEGATIVE (NEGATIVE); COLOR,URINE YELLOW (YELLOW); LEUKOCYTE ESTERASE ,URINE NEGATIVE (NEGATIVE); NITRITE, URINE NEGATIVE (NEGATIVE); PROTEIN,URINE NEGATIVE (NEGATIVE); UGLUCOSE NEGATIVE (NEGATIVE); UROBILINOGEN,URINE 0.2 EU/dL (0.2)
[2020-12-23] MEDS ORDERED: PIPERACILLIN /TAZOBACTAM 3.375 G in IV D5W 50 ML IV ONE (16:00)
[2020-12-23] MEDS ORDERED: PIPERACILLIN /TAZOBACTAM 3.375 G VIAL IV ONE (16:15)
[2020-12-23 16:54] LABS: ALANINE AMINOTRANSFERASE 30 U/L (12-78); ALBUMIN 3.1 g/dL (3.4-5.0); ALKALINE PHOSPHATASE 145 U/L (46-116); ASPARTATE AMINOTRANSFERASE 21 U/L (15-37); BILIRUBIN,DIRECT 0.3 mg/dL (0.0-0.2); BILIRUBIN,TOTAL 0.7 mg/dL (0.2-1.0); CALCIUM, SERUM 8.5 mg/dL (8.5-10.1); CARBON DIOXIDE 25 mmol/L (21-32); CHLORIDE 104 mmol/L (98-107); CREATININE 0.7 mg/dL (0.6-1.3); GLUCOSE 96 mg/dL (74-106); POTASSIUM 3.9 mmol/L (3.5-5.1); SODIUM SERUM 140 mmol/L (136-145); TOTAL PROTEIN, SERUM 7.5 g/dL (6.4-8.2); UREA NITROGEN, BLOOD 7 mg/dL (7-18)
--- NOTE | 2020-12-23 16:54 | NUR ---
313-2 FOR BED 8.
--- NOTE | 2020-12-23 17:41 | NUR ---
REPORT GIVEN TO OLY FAITH FOR VERONICA
--- NOTE | 2020-12-23 17:55 | NUR ---
PT [place]SP[place] [facility] AND RN AT BEDSIDE W/ ACLS PROTOCOL. NAD NOTED DURING TRANSPORT. PT AMBULATED FROM [place] TO BED ON STEADY GAIT
[2020-12-23] MEDS ORDERED: MAG HYDROX/AL HYDROX/SIMETH 30 ML UDC PO PRN (18:00)
[2020-12-23] MEDS ORDERED: ACETAMINOPHEN 325 MG TABLET PO PRN (18:00)
[2020-12-23] MEDS ORDERED: GABAPENTIN 100 MG CAPSULE PO PRN (18:00)
[2020-12-23] MEDS ORDERED: HYDROCODONE/APAP 5/325MG TABLET PO PRN (18:00)
[2020-12-23] MEDS ORDERED: Z GUARD REMEDY 2 OZ OINT TP PRN (18:00)
[2020-12-23 18:10] VITALS: BP 116/72
--- NOTE | 2020-12-23 18:10 | NUR ---
MS ALDRIDGE NOTES PATIENT ADMITTED FROM ER REPORT GIVE BY DEJUAN ALDRIDGE. PATIENT ALERT ORIENTED X 4. NO ACUTE DISTRESS NOTED. BREATHING UNLABORED. DENIED PAIN AT THIS TIME. IV ACCESS PATENT AND INTACT, NO REDNESS NO SWELLING NOTED. ORIENTED TO THE ROOM. SAFETY MEASURES IN PLACE. CALL LIGHT WITHIN REACH. WILL CONTINUE TO MONITOR ACCORDINGLY. Addendum: 12/23/20 at 1915 by TORO KENT RN ADDENDUM:PATIENT PLACED ON TELE MONITOR
--- NOTE | 2020-12-23 19:00 | NUR ---
WOOD SASH AND FRAME CARPENTER NOTES PATIENT IN BED ALERT ORIENTED X 4. NO ACUTE DISTRESS NOTED. BREATHING UNLABORED, IV ACCESS PATENT AND INTACT, NO REDNESS NO SWELLING NOTED. NEEDS ATTENDED AND ANTICIPATED . SAFETY MEASURES IN PLACE. CALL LIGHT WITHIN REACH. WILL ENDORSE TO NIGHT NURSE FOR CONTINUITY OF CARE AND ADMISSION
[2020-12-23 20:00] VITALS: BP 101/56
[2020-12-23] MEDS: PIPERACILLIN /TAZOBACTAM 3.375 G in IV D5W 100 ML IV SCH (20:06)
[2020-12-23] MEDS: HYDROMORPHONE 1 MG/1 ML DISP.SYRIN IV PRN (20:08)
[2020-12-23] MEDS: ONDANSETRON HCL/PF 4 MG/2 ML VIAL IVP PRN (20:09)
[2020-12-24] VITALS: BP 93/55
[2020-12-24] MEDS ORDERED: PIPERACILLIN /TAZOBACTAM 3.375 G in IV D5W 50 ML IV SCH
[2020-12-24] MEDS: HYDROMORPHONE 1 MG/1 ML DISP.SYRIN IV PRN ×4 (01:43→23:04)
[2020-12-24 04:00] VITALS: BP 100/51
[2020-12-24] MEDS: PIPERACILLIN /TAZOBACTAM 3.375 G in IV D5W 100 ML IV SCH ×3 (05:21→21:20)
[2020-12-24 06:26] LABS: BASOPHILS # (AUTO) 0.1 /CMM (0.0-0.2); BASOPHILS % (AUTO) 0.8 % (0.0-2.0); EOSINOPHILS % (AUTO) 0.4 % (0.0-6.0); HEMATOCRIT 22 % (33-45); HEMOGLOBIN 7.1 g/dL (11.5-14.8); LYMPHOCYTES # (AUTO) 1.3 /CMM (0.8-4.8); LYMPHOCYTES % (AUTO) 11.9 % (20.0-44.0); MEAN CORPUSCULAR HGB CONC 33 g/dl (31.0-36.0); MEAN CORPUSCULAR VOLUME 96 fL (82-100); MONOCYTES # (AUTO) 0.8 /CMM (0.1-1.30); MONOCYTES % (AUTO) 7.1 % (2.0-12.0); NEUTROPHILS # (AUTO) 8.8 /CMM (1.8-8.9); NEUTROPHILS % (AUTO) 79.8 % (43.0-81.0); PLATELET COUNT (AUTO) 153 /CMM (150-450); RED BLOOD CELL COUNT(AUTO) 2.27 MIL/uL (4.0-5.2); WHITE BLOOD COUNT (AUTO) 11.1 K/uL (4.3-11.0)
[2020-12-24 06:55] LABS: CALCIUM, SERUM 7.7 mg/dL (8.5-10.1); CREATININE 0.7 mg/dL (0.6-1.3); MAGNESIUM 2.4 mg/dL (1.8-2.4); POTASSIUM 3.5 mmol/L (3.5-5.1)
--- NOTE | 2020-12-24 07:00 | NUR ---
MS RN NOTE PATIENT WAS LAST SEEN AWAKE IN THE BED. PATIENT IS A/O X3. PT IS ON ROOM AIR, BREATHING IS EVEN AND UNLABORED. PT HAS A RIGHT UPPER ARM MIDLINE #20 G IS INTACT AND PATENT. BED IS IN ITS LOWEST LOCKED POSITION. SIDE RAILS UP X2. CALL LIGHT IS WITHIN REACH OF THE PT. WILL ENDORSE CONTINUITY OF CARE TO ONCOMING SHIFT.
[2020-12-24 07:02] LABS: IRON, SERUM 21 ug/dl (50-175); TOTAL IRON BINDING CAPACITY 189 ug/dl (250-450)
--- NOTE | 2020-12-24 07:40 | NUR ---
RURAL HEALTH CONSULTANT OPENING NOTES PATIENT IN BED ALERT ORIENTED X 4. NO ACUTE DISTRESS NOTED. BREATHING UNLABORED, IV ACCESS PATENT AND INTACT, NO REDNESS NO SWELLING NOTED. NEEDS ATTENDED AND ANTICIPATED . SAFETY MEASURES IN PLACE. CALL LIGHT WITHIN REACH. WILL ENDORSE TO NIGHT NURSE FOR CONTINUITY OF CARE AND ADMISSION
[2020-12-24] MEDS: ONDANSETRON HCL/PF 4 MG/2 ML VIAL IVP PRN (07:51)
[2020-12-24 08:00] VITALS: BP 103/44
[2020-12-24] MEDS ORDERED: SOD FERRIC GLUC 125 MG in IV NS 0.9% 100 ML IV SCH (14:00)
[2020-12-24 16:00] VITALS: BP 98/55
[2020-12-24] MEDS: IRON SUCROSE COMPLEX 200 MG in IV NS 0.9% 100 ML IV SCH (17:30)
--- NOTE | 2020-12-24 18:05 | NUR ---
SENIOR GOVERNMENT PROGRAM ANALYST CLOSING NOTES PATIENT IN BED ALERT ORIENTED X 4. NO ACUTE DISTRESS NOTED. BREATHING UNLABORED, IV ACCESS PATENT AND INTACT, NO REDNESS NO SWELLING NOTED. NEEDS ATTENDED AND ANTICIPATED . SAFETY MEASURES IN PLACE. CALL LIGHT WITHIN REACH. WILL ENDORSE TO NIGHT NURSE FOR CONTINUITY OF CARE AND ADMISSION
[2020-12-24] MEDS ORDERED: IV LR 1000 ML 1,000 ML IV ONE (19:00)
[2020-12-24] MEDS ORDERED: PHYTONADIONE INJ 10 MG/1 ML AMPUL SQ ONE (19:00)
--- NOTE | 2020-12-24 19:10 | NUR ---
MS RN OPENING NOTES: RECEIVED PATIENT IN BED, AWAKE, A/O X4. NO S/S OF DISTRESS NOTED. CALL LIGHT WITHIN REACH. BED IN LOWEST AND LOCKED POSITION. AMBULATORY. NPO POST MN, PATIENT AWARE AND VERBALIZED UNDERSTANDING. FABRIC PATTERN GRADER MADE AWARE.
[2020-12-24 20:00] VITALS: BP 107/43
--- NOTE | 2020-12-24 21:30 | NUR ---
LEFT WRIST IV REMOVED PER PATIENT'S REQUEST.
[2020-12-24] MEDS ORDERED: PHYTONADIONE INJ 10 MG/1 ML AMPUL ONE (21:42)
[2020-12-25] VITALS (8 sets, daily range): BP systolic 108–130; BP diastolic 57–73
--- NOTE | 2020-12-25 01:13 | NUR ---
IVF LR AT 100ML/HOUR STARTED BY OLY ABAD.
--- NOTE | 2020-12-25 01:14 | NUR ---
IVF LR STARTED AT 189912/24/20.
[2020-12-25] MEDS: PIPERACILLIN /TAZOBACTAM 3.375 G in IV D5W 100 ML IV SCH ×3 (04:22→20:07)
[2020-12-25] MEDS: HYDROMORPHONE 1 MG/1 ML DISP.SYRIN IV PRN ×3 (04:42→20:08)
--- NOTE | 2020-12-25 06:16 | NUR ---
MS RN CLOSING NOTES: PATIENT IN BED, AWAKE, A/O X4. NO S/S OF DISTRESS NOTED. CALL LIGHT WITHIN REACH. BED IN LOWEST AND LOCKED POSITION. NPO POST MN. PRE-OP CHECKLIST INITIATED, TO BE COMPLETED BY THE NEXT SHIFT RN, WILL ENDORSE. CONSENT FOR SURGERY IS NOT SIGN, NO ORDERS YET WILL ENDORSE TO THE ONCOMING RN. EARLIER THIS MORNING PATIENT DID THE CHG PREOP BATH AND CHANGED HER GOWN.
[2020-12-25 06:31] LABS: BASOPHILS # (AUTO) 0.1 /CMM (0.0-0.2); BASOPHILS % (AUTO) 0.7 % (0.0-2.0); EOSINOPHILS % (AUTO) 0.5 % (0.0-6.0); HEMATOCRIT 24 % (33-45); HEMOGLOBIN 8.1 g/dL (11.5-14.8); LYMPHOCYTES % (AUTO) 9.4 % (20.0-44.0); MEAN CORPUSCULAR HGB CONC 33 g/dl (31.0-36.0); MEAN CORPUSCULAR VOLUME 96 fL (82-100); MONOCYTES # (AUTO) 0.7 /CMM (0.1-1.30); MONOCYTES % (AUTO) 6.5 % (2.0-12.0); NEUTROPHILS % (AUTO) 82.9 % (43.0-81.0); PLATELET COUNT (AUTO) 176 /CMM (150-450); RED BLOOD CELL COUNT(AUTO) 2.53 MIL/uL (4.0-5.2); WHITE BLOOD COUNT (AUTO) 10.8 K/uL (4.3-11.0)
[2020-12-25 06:39] LABS: CALCIUM, SERUM 7.8 mg/dL (8.5-10.1); CREATININE 0.8 mg/dL (0.6-1.3); MAGNESIUM 2.1 mg/dL (1.8-2.4); POTASSIUM 4.1 mmol/L (3.5-5.1)
--- NOTE | 2020-12-25 07:20 | NUR ---
MS RN OPENING NOTES PATIENT IN BED, ALERT AND ORIENTED X 4. NO SIGNS OF DISTRESS OR SHORTNESS OF BREATH NOTED. NO REPORTS OF PAIN AT THIS TIME. RIGHT UPPER ARM MIDLINE CLEAN, DRY AND INTACT. SAFETY MEASURES IN PLACE, CALL LIGHT WITHIN REACH, BED IN LOWEST POSITION. WILL CONTINUE TO MONITOR
[2020-12-25] MEDS: ONDANSETRON HCL/PF 4 MG/2 ML VIAL IVP PRN ×2 (08:21→18:10)
[2020-12-25] MEDS ORDERED: HYDROMORPHONE INJ 2 MG/ML DISP.SYRIN ONE (08:42)
[2020-12-25] MEDS ORDERED: FENTANYL PF 250MCG/5ML AMPUL ONE (08:42)
[2020-12-25] MEDS ORDERED: MIDAZOLAM HCL 2 MG/2ML VIAL ONE (08:43)
[2020-12-25] MEDS ORDERED: ANESTHESIA TRAY IN PYXIS 1 EA TRAY MC ONE (09:13)
[2020-12-25] MEDS ORDERED: LIDOCAINE HCL/MPF 1% 30 ML VIAL IJ ONE (09:14)
[2020-12-25] MEDS ORDERED: BUPIVACAINE MPF 0.5% W/EPI INJ 30 ML VIAL ONE (09:14)
--- NOTE | 2020-12-25 09:26 | NUR ---
MS RN NOTE PATIENT TAKEN TO OR BY OLY FLORES. PATIENT ALERT AND ORIENTED X 4, NO ACUTE DISTRESS OR SHORTNESS OF BREATH NOTED. PATIENT'S CELL PHONE TAKEN WITH HER.
[2020-12-25] MEDS ORDERED: SEVOFLURANE 250 ML BOTTLE IH ONE (09:51)
[2020-12-25] MEDS ORDERED: PHYTONADIONE INJ 10 MG/1 ML AMPUL ONE (10:14)
[2020-12-25] MEDS ORDERED: CELLULOSE,OXIDIZED 1 PKT EACH MC ONE (10:48)
[2020-12-25] MEDS ORDERED: BACITRACIN ZINC OINT (15 GM) 15 GM TUBE TP ONE (11:12)
[2020-12-25] MEDS ORDERED: HYDROMORPHONE 1 MG/1 ML DISP.SYRIN ONE (11:31)
[2020-12-25] MEDS ORDERED: ONDANSETRON HCL/PF 4 MG/2 ML VIAL ONE (11:44)
--- NOTE | 2020-12-25 12:20 | NUR ---
MS RN NOTE PATIENT RETURNED FROM SURGERY, ALERT AND ORIENTED X 4. NO ACUTE DISTRESS NOTED. BREATHING UNLABORED, NO SHORTNESS OF BREATH NOTED. S/P LAPAROSCOPIC CHOLECYSTECTOMY BY MANNY CEE 3 ABDOMINAL SURGICAL DRESSINGS, GAUZE SECURED WITH TEGADERM, CLEAN DRY AND INTACT. REPORT GIVEN BY OLY FLORES. VITAL SIGNS STABLE. WILL CONTINUE TO MONITOR. NEW ORDERS FROM DR. CORREA, ORDERS CLARIFIED AND READBACK, NOTED AND CARRIED OUT.
--- NOTE | 2020-12-25 13:25 | NUR ---
MS RN NOTE PATIENT REFUSED TYLENOL, MOTRIN AND GABAPENTIN. RISKS AND BENEFITS EXPLAINED. PATIENT VERBALIZED UNDERSTANDING. WILL CONTINUE TO MONITOR
[2020-12-25] MEDS ORDERED: ACETAMINOPHEN 325 MG TABLET PO SCH (14:00)
[2020-12-25] MEDS ORDERED: IBUPROFEN 400 MG TABLET PO SCH (14:00)
[2020-12-25] MEDS ORDERED: GABAPENTIN 300 MG CAPSULE PO SCH (14:00)
--- NOTE | 2020-12-25 16:30 | NUR ---
MS RN NOTES PATIENT CHANGED MIND AND NOW WANTS TO TAKE THE ROUTINE TYLENOL, MOTRIN AND GABAPENTIN. NOTIFIED LEAD CASE MANAGER GIULIANO GARCIA WITH ORDER TO CHANGE THE SCHEDULE. PHARMACY NOTIFIED, [facility], AND WILL CHANGE FIRST DOSE TO START NOW
[2020-12-25] MEDS: GABAPENTIN 300 MG CAPSULE PO SCH ×2 (16:45→22:49)
[2020-12-25] MEDS: IBUPROFEN 400 MG TABLET PO SCH ×2 (16:45→22:49)
[2020-12-25] MEDS: ACETAMINOPHEN 325 MG TABLET PO SCH ×2 (16:45→22:49)
--- NOTE | 2020-12-25 17:50 | NUR ---
MS RN NOTES AMBULATED WITH PATIENT IN THE HALLWAY, SAFETY PRECAUTIONS INSTRUCTED. PATIENT WALKING ON STEADY GAIT, PATIENT VERBALIZED THAT PAIN IS IMPROVING AND TOLERATED, AND THAT SHE FEELS BETTER WALKING.
--- NOTE | 2020-12-25 18:55 | NUR ---
MS RN CLOSING NOTES PATIENT SITTING IN CHAIR, ALERT AND ORIENTED X 4. NO SIGNS OF DISTRESS OR SHORTNESS OF BREATH NOTED. PATIENT S/P LAPAROSCOPIC CHOLECYSTECTOMY, VITAL SIGNS REMAIN STABLE. INCISION DRESSINGS CLEAN, DRY, AND INTACT. PATIENT TOLERATED CLEAR LIQUIDS, ADVANCE DIET TOLERATED. SAFETY MEASURES IN PLACE, CALL LIGHT WITHIN REACH AND BED IN LOWEST POSITION. WILL ENDORSE TO TOP LOADER NURSE FOR CONTINUITY OF CARE
--- NOTE | 2020-12-25 19:25 | NUR ---
MS/RN OPENING NOTE RECEIVED PATIENT SLEEPING IN BED. ALERT AND ORIENTED X 4. ABLE TO MAKE NEEDS KNOWN. NO COMPLAINTS OF PAIN AT THIS TIME. RIGHT UPPER ARM MIDLINE INTACT AND PATENT. CONTINUES ON IVF LR @ 100ML/HR. CONTINUES ON IV ABX. CONTINUES ON CLEAR LIQUID DIET WITH ORDERS TO ADVANCE TOLERATED. NO S/SX OF NAUSEA OR VOMITING AT THIS TIME. CALL LIGHT WITHIN REACH. ASPIRATION, FALL AND SAFETY PRECAUTIONS MAINTAINED. WILL CONTINUE TO MONITOR.
--- NOTE | 2020-12-25 20:15 | NUR ---
MS/RN NOTE PATIENT WITH COMPLAINTS OF ABDOMINAL PAIN 05/19. GIVEN PRN DILAUDID WITH PENDING EFFECT.
[2020-12-26] MEDS: HYDROMORPHONE 1 MG/1 ML DISP.SYRIN IV PRN ×5 (00:31→19:55)
[2020-12-26] MEDS: IV LR 1000 ML 1,000 ML IV PRN ×2 (03:16→20:36)
[2020-12-26] MEDS: PIPERACILLIN /TAZOBACTAM 3.375 G in IV D5W 100 ML IV SCH ×3 (05:05→21:06)
--- NOTE | 2020-12-26 06:00 | NUR ---
MS/RN NOTE PATIENT WITH COMPLAINTS OF BLADDER DISCOMFORT AND FOUL SMELLING URINE. URINE IS PALE IN APPEARANCE. NO CLOUDINESS NOTED. NOTIFIED MD LAN MANAGER DR. ANDERSON WITH NEW ORDER FOR URINALYSIS. ORDERS INPUTTED AND CARRIED OUT. PATIENT AWARE.
--- NOTE | 2020-12-26 06:30 | NUR ---
MS/RN CLOSING NOTE PATIENT CURRENTLY RESTING IN BED. ALERT AND ORIENTED X 4. ABLE TO MAKE NEEDS KNOWN. NO COMPLAINTS OF PAIN AT THIS TIME. RIGHT UPPER ARM MIDLINE INTACT AND PATENT. CONTINUES ON IVF LR @ 100ML/HR. CONTINUES ON IV ABX. CONTINUES ON CLEAR LIQUID DIET WITH ORDERS TO ADVANCE TOLERATED. PATIENT TOLERATING PB&J SANDWICH AND SALTINES LAST NIGHT. NO S/SX OF NAUSEA OR VOMITING AT THIS TIME. CALL LIGHT WITHIN REACH. ASPIRATION, FALL AND SAFETY PRECAUTIONS MAINTAINED. WILL ENDORSE PLAN OF CARE TO ONCOMING SHIFT.
[2020-12-26 06:31] LABS: BASOPHILS % (AUTO) 0.1 % (0.0-2.0); HEMATOCRIT 22 % (33-45); HEMOGLOBIN 7.3 g/dL (11.5-14.8); LYMPHOCYTES # (AUTO) 1.1 /CMM (0.8-4.8); LYMPHOCYTES % (AUTO) 8.1 % (20.0-44.0); MEAN CORPUSCULAR HGB CONC 33 g/dl (31.0-36.0); MEAN CORPUSCULAR VOLUME 95 fL (82-100); MONOCYTES # (AUTO) 0.7 /CMM (0.1-1.30); MONOCYTES % (AUTO) 4.9 % (2.0-12.0); NEUTROPHILS # (AUTO) 12.3 /CMM (1.8-8.9); NEUTROPHILS % (AUTO) 86.9 % (43.0-81.0); PLATELET COUNT (AUTO) 200 /CMM (150-450); RED BLOOD CELL COUNT(AUTO) 2.33 MIL/uL (4.0-5.2); WHITE BLOOD COUNT (AUTO) 14.1 K/uL (4.3-11.0)
[2020-12-26] MEDS: IBUPROFEN 400 MG TABLET PO SCH ×3 (06:40→23:11)
[2020-12-26] MEDS: ACETAMINOPHEN 325 MG TABLET PO SCH ×3 (06:41→23:10)
[2020-12-26] MEDS: GABAPENTIN 300 MG CAPSULE PO SCH ×3 (06:41→23:11)
--- NOTE | 2020-12-26 07:15 | NUR ---
MS RN NOTE RECEIVED PATIENT IN BED. ON ROOM AIR, NO SOB NOTED. IN NO APPARENT DISTRESS. NO COMPLAINTS OF PAIN OR DISCOMFORT AT THIS TIME. IV ACCESS ON NAOMI MIDLINE #18 G, INTACT AND PATENT, LR RUNNING @ 100 ML/HR. ENCOURAGING AMBULATION. SAFETY MEASURES MAINTAINED. BED IN LOWEST POSITION, BRAKES LOCKED. SIDE RAILS UP X2. CALL LIGHT WITHIN REACH. WILL CONTINUE PLAN OF CARE.
[2020-12-26 07:51] LABS: ALBUMIN 2.9 g/dL (3.4-5.0); BILIRUBIN,DIRECT 0.3 mg/dL (0.0-0.2); BILIRUBIN,TOTAL 0.7 mg/dL (0.2-1.0); CALCIUM, SERUM 8.7 mg/dL (8.5-10.1); CREATININE 0.7 mg/dL (0.6-1.3); MAGNESIUM 2.2 mg/dL (1.8-2.4); PHOSPHORUS 3.2 mg/dL (2.5-4.9); POTASSIUM 3.9 mmol/L (3.5-5.1); TOTAL PROTEIN, SERUM 6.6 g/dL (6.4-8.2)
[2020-12-26 08:30] VITALS: BP 119/56
[2020-12-26] MEDS: MAGNESIUM HYDROXIDE 30 ML UDC PO PRN (08:31)
[2020-12-26] MEDS: IRON SUCROSE COMPLEX 200 MG in IV NS 0.9% 100 ML IV SCH (14:52)
[2020-12-26 15:52] VITALS: BP 110/59
--- NOTE | 2020-12-26 18:11 | NUR ---
MS RN CLOSING NOTE PATIENT RESTING IN BED. ON ROOM AIR, NO SOB NOTED. SHOWS NO SIGNS OF RESPIRATORY DISTRESS. IV ACCESS ON NAOMI MIDLINE #18 G, INTACT AND PATENT, LR CURRENTLY RUNNING @ 100 ML/HR. ENCOURAGED AMBULATION. ALL DUE MEDS GIVEN ORDERED. PAIN MEDS GIVEN NEEDED. ALL NEEDS HAVE BEEN MET AND ATTENDED. SAFETY MEASURES MAINTAINED. BED IN LOWEST POSITION, BRAKES LOCKED. SIDE RAILS UP X2. CALL LIGHT WITHIN REACH. WILL ENDORSE CONTINUITY OF CARE TO ONCOMING SHIFT.
--- NOTE | 2020-12-26 19:28 | NUR ---
MS RN OPENING NOTES PATIENT A/OX4; ABLE TO MAKE NEEDS KNOWN. ON ROOM AIR TOLERATING WELL WITH NO SOB. PATIENT DENIES PAIN OR DISCOMFORT AT THIS TIME. NAOMI MIDLINE LR @ 100ML/HR; PATENT AND INTACT. ABDOMINAL DRESSING KEPT C/D/I. VISITOR AT BEDSIDE. SAFETY MEASURES IN PLACE: BED IN LOWEST LOCKED POSITION, SIDE RAILS UPX2, BED ALARMS ON, CALL LIGHT WITHIN EASY REACH. PATIENT IN STABLE CONDITION, WILL CONTINUE PLAN OF CARE.
--- NOTE | 2020-12-26 19:55 | NUR ---
MS RN NOTE - PAIN PATIENT C/O 04/18 ABDOMINAL PAIN. ADMINISTERED DILAUDID ORDERED. WILL CONTINUE TO ASSESS FOR PAIN.
[2020-12-26 20:00] VITALS: BP 114/58
[2020-12-26 21:34] LABS: BILIRUBIN,URINE NEGATIVE (NEGATIVE); COLOR,URINE YELLOW (YELLOW); LEUKOCYTE ESTERASE ,URINE NEGATIVE (NEGATIVE); NITRITE, URINE NEGATIVE (NEGATIVE); PROTEIN,URINE NEGATIVE (NEGATIVE); UGLUCOSE NEGATIVE (NEGATIVE); UROBILINOGEN,URINE 0.2 EU/dL (0.2)
[2020-12-26] MEDS: ONDANSETRON HCL/PF 4 MG/2 ML VIAL IVP PRN (23:13)
[2020-12-27] MEDS: HYDROMORPHONE 1 MG/1 ML DISP.SYRIN IV PRN ×7 (04:07→22:05)
--- NOTE | 2020-12-27 04:07 | NUR ---
MS RN NOTE - PAIN PATIENT C/O 04/18 ABDOMINAL PAIN. ADMINISTERED DILAUDID ORDERED. WILL CONTINUE TO ASSESS FOR PAIN.
[2020-12-27] MEDS: PIPERACILLIN /TAZOBACTAM 3.375 G in IV D5W 100 ML IV SCH (04:35)
[2020-12-27] MEDS: MAGNESIUM HYDROXIDE 30 ML UDC PO PRN (06:03)
[2020-12-27] MEDS: GABAPENTIN 300 MG CAPSULE PO SCH ×3 (06:03→23:05)
[2020-12-27] MEDS: ACETAMINOPHEN 325 MG TABLET PO SCH ×3 (06:03→23:05)
[2020-12-27] MEDS: IBUPROFEN 400 MG TABLET PO SCH ×3 (06:03→23:05)
[2020-12-27 06:27] LABS: BASOPHILS % (AUTO) 0.5 % (0.0-2.0); EOSINOPHILS % (AUTO) 0.5 % (0.0-6.0); HEMATOCRIT 21 % (33-45); LYMPHOCYTES # (AUTO) 0.8 /CMM (0.8-4.8); LYMPHOCYTES % (AUTO) 8.5 % (20.0-44.0); MEAN CORPUSCULAR HGB CONC 33 g/dl (31.0-36.0); MEAN CORPUSCULAR VOLUME 97 fL (82-100); MONOCYTES # (AUTO) 0.4 /CMM (0.1-1.30); MONOCYTES % (AUTO) 4.8 % (2.0-12.0); NEUTROPHILS % (AUTO) 85.7 % (43.0-81.0); PLATELET COUNT (AUTO) 174 /CMM (150-450); RED BLOOD CELL COUNT(AUTO) 2.16 MIL/uL (4.0-5.2); WHITE BLOOD COUNT (AUTO) 9.3 K/uL (4.3-11.0)
--- NOTE | 2020-12-27 06:29 | NUR ---
MS RN CLOSING NOTES PATIENT A/OX4; ABLE TO MAKE NEEDS KNOWN. ON ROOM AIR TOLERATING WELL WITH NO SOB. PATIENT DENIES PAIN OR DISCOMFORT AT THIS TIME. NAOMI MIDLINE LR @ 100ML/HR; PATENT AND INTACT. ABDOMINAL DRESSING KEPT C/D/I. SAFETY MEASURES IN PLACE: BED IN LOWEST LOCKED POSITION, SIDE RAILS UPX2, BED ALARMS ON, CALL LIGHT WITHIN EASY REACH. PATIENT IN STABLE CONDITION, WILL ENDORSE PLAN OF CARE TO ONCOMING MORNING RN.
[2020-12-27 06:59] LABS: HEMOGLOBIN 6.9 g/dL (11.5-14.8)
--- NOTE | 2020-12-27 07:01 | NUR ---
MS RN NOTE - HGB TOY FROM LAB REPORTED THAT PATIENT'S HGB IS 6.9. NOTIFIED CHARGE NURSE IVANA. WILL ENDORSE TO NEXT SHIFT RN.
[2020-12-27 07:08] LABS: CREATININE 0.7 mg/dL (0.6-1.3); MAGNESIUM 1.8 mg/dL (1.8-2.4); POTASSIUM 3.6 mmol/L (3.5-5.1)
--- NOTE | 2020-12-27 07:30 | NUR ---
RN MS NOTES PT IN BED, ASLEEP, EASY TO AROUSE, ALERT AND ORIENTED, NO COMPLAINT AT THIS TIME, RESPIRATIONS NORMAL, IV FLUIDS INFUSING WELL, CALL LIGHT WITHIN REACH.
[2020-12-27 08:00] VITALS: BP 108/60
[2020-12-27] MEDS: DOCUSATE SODIUM 100 MG CAPSULE PO SCH ×2 (09:06→18:00)
--- NOTE | 2020-12-27 09:20 | NUR ---
RN MS NOTES PER DR. ROCK, CANCEL ORDER FOR I UNIT PRBC, PT INFORMED.
[2020-12-27 09:30] LABS: LYMPHOCYTES % (MANUAL) 7 % (16-48); MONOCYTES % (MANUAL) 6 % (0-11.0); NEUTROPHILS % (MANUAL) 87 (42-76)
[2020-12-27] MEDS: FOLIC ACID 1 MG TABLET PO SCH (12:13)
[2020-12-27 16:00] VITALS: BP 102/54
--- NOTE | 2020-12-27 18:21 | NUR ---
RN MS NOTES Patient in bed awake, alert and oriented. Pt c/o severe pain relieved by PRN dilaudid. Patient able to walk along the hallway with steady gait. Had 2 small BMs. Tolerating current diet. PM meds given. No s/s of bleeding.
--- NOTE | 2020-12-27 20:03 | NUR ---
MS BRADEN INITIAL NOTES Received report from am nurse Ness and saw pt standing in front of her room talking to nurse Anders, denies any pain or any discomfort at this time. Able to make needs known. She stated she feel much better now after the surgery and she also passed gas and have a little amount of bowel movement today. Denies any N/V , or any dizzines at this time. She's on cardiac diet now and pt tolerated well. Encourage her to continue ambulation as tolerated and call us if she needs some help or needs some meds. will continue monitoring.
[2020-12-27 20:29] VITALS: BP 115/55
--- NOTE | 2020-12-27 22:05 | NUR ---
Ms BRADEN notes C/O abdominal pain , Dilaudid 0.5mg IVP administered by nurse Anders/RN tao IVP as ordered. will re- assess later.
[2020-12-27] MEDS: ONDANSETRON HCL/PF 4 MG/2 ML VIAL IVP PRN (23:12)
[2020-12-28] MEDS: HYDROMORPHONE 1 MG/1 ML DISP.SYRIN IV PRN ×3 (03:49→12:43)
--- NOTE | 2020-12-28 03:54 | NUR ---
Ms BRADEN notes C/O abdominal pain , Dilaudid 0.5mg IVP administered by nurse Anders/RN tao IVP as ordered. will re- assess later.
[2020-12-28 06:28] LABS: BASOPHILS % (AUTO) 0.4 % (0.0-2.0); EOSINOPHILS % (AUTO) 0.5 % (0.0-6.0); HEMATOCRIT 22 % (33-45); HEMOGLOBIN 7.2 g/dL (11.5-14.8); LYMPHOCYTES # (AUTO) 0.7 /CMM (0.8-4.8); LYMPHOCYTES % (AUTO) 7.6 % (20.0-44.0); MEAN CORPUSCULAR HGB CONC 33 g/dl (31.0-36.0); MEAN CORPUSCULAR VOLUME 97 fL (82-100); MONOCYTES # (AUTO) 0.3 /CMM (0.1-1.30); MONOCYTES % (AUTO) 3.3 % (2.0-12.0); NEUTROPHILS # (AUTO) 8.6 /CMM (1.8-8.9); NEUTROPHILS % (AUTO) 88.2 % (43.0-81.0); PLATELET COUNT (AUTO) 156 /CMM (150-450); RED BLOOD CELL COUNT(AUTO) 2.24 MIL/uL (4.0-5.2); WHITE BLOOD COUNT (AUTO) 9.7 K/uL (4.3-11.0)
[2020-12-28 06:50] LABS: CALCIUM, SERUM 8.3 mg/dL (8.5-10.1); POTASSIUM 3.7 mmol/L (3.5-5.1)
[2020-12-28 07:05] LABS: CREATININE 0.6 mg/dL (0.6-1.3)
--- NOTE | 2020-12-28 07:19 | NUR ---
MS BRADEN CLOSING NOTES Patient just woke up not in any distress or any discomfort noted at this time. She told me that her pain like on and off specially when she move. she also told me that she doesn't feel like to go home today if his doctor discharge her. I told her that talk to her Md and tell her concerns. Slept after pain meds given last night. Kept her warm and comfortable at all times. will endorse to am nurse for continuity of care. place call light at reach.
[2020-12-28 08:00] VITALS: BP 103/56
[2020-12-28] MEDS: ACETAMINOPHEN 325 MG TABLET PO SCH ×2 (08:06→14:32)
[2020-12-28] MEDS: IBUPROFEN 400 MG TABLET PO SCH ×2 (08:07→14:32)
[2020-12-28] MEDS: DOCUSATE SODIUM 100 MG CAPSULE PO SCH (08:07)
[2020-12-28] MEDS: GABAPENTIN 300 MG CAPSULE PO SCH ×2 (08:07→14:32)
[2020-12-28] MEDS: FOLIC ACID 1 MG TABLET PO SCH (08:08)
--- NOTE | 2020-12-28 09:22 | NUR ---
MS RN OPENING NOTES Patient is awake, alert and oriented. Tolerated breakfast well. C/o severe pain with relief from PRN dilaudid. Resident then seen up and walking around room. No complaints at this time. VS stable.
[2020-12-28] MEDS ORDERED: HYDR-3972 PO (10:03)
[2020-12-28] MEDS ORDERED: ONDA4TAB5 PO (10:03)
[2020-12-28] MEDS: IRON SUCROSE COMPLEX 200 MG in IV NS 0.9% 100 ML IV SCH (15:14)
[2020-12-28 16:00] VITALS: BP 108/60
--- NOTE | 2020-12-28 16:25 | NUR ---
RN MS Discharge notes Patient discharged at 1620. No c/o pain. VS WNL. Afebrile. Patient was escorted safely by 2 nurses down to private car where family member was waiting to pick patient up. Prior to discharge pt was provided with d/c instructions for post-op laparoscopic cholecystectomy care. The patient was also instructed to follow-up with her primary care physician in 14 days and to follow-up with surgery in 1 week. Dressings to laparoscopic sites c/d/i. Belongings accounted for. Pt verbalized understanding of instructions. A&Ox3. Midline to NAOMI removed prior to discharge -site free from s/s of infection.
== END 2020-12-28 16:30 | disposition home or self-care (01) | DRG 263 ==
LOC: ER 13:55 → MED 16:57 → TELE 17:25 → MED 12-24 11:47
PROVIDERS: ADMIT Nurse Practitioner Family; ATTEND Nurse Practitioner Acute Care
PROC: B546ZZA Ultrasonography of Right Subclavian Vein, Guidance (ICD-10-PCS; 2020-12-23)
PROC: 05H533Z Insertion of Infusion Device into Right Subclavian Vein, Percutaneous Approach (ICD-10-PCS; 2020-12-23)
PROC: 0FT44ZZ Resection of Gallbladder, Percutaneous Endoscopic Approach (ICD-10-PCS; principal; 2020-12-25)
DX: K80.10 Calculus of gallbladder with chronic cholecystitis without obstruction (principal); J15.9 Unspecified bacterial pneumonia; I42.9 Cardiomyopathy, unspecified; R65.10 Systemic inflammatory response syndrome (SIRS) of non-infectious origin without acute organ dysfunction; D50.9 Iron deficiency anemia, unspecified; F12.90 Cannabis use, unspecified, uncomplicated; J98.11 Atelectasis; K59.00 Constipation, unspecified; Z87.891 Personal history of nicotine dependence; Z95.0 Presence of cardiac pacemaker; Z95.2 Presence of prosthetic heart valve; Z86.711 Personal history of pulmonary embolism; Z86.79 Personal history of other diseases of the circulatory system; Z86.14 Personal history of Methicillin resistant Staphylococcus aureus infection; Z20.822 Contact with and (suspected) exposure to COVID-19
CPT/HCPCS: 36415; 71045-TC; 71250-TC; 74018; 76705-TC; 80048-TC; 80076-TC; 83540-TC; 83605-TC; 83735-TC; 84100-TC; 84484-TC; 84703-TC; 85025-TC; 85730-TC; 87040-TC; 87081-TC; 87086-TC; 88304-TC; C9803; G0378; J0690; J1170; J1756; J1885; J2250; J2405; J2543; J2704; J2765; J2916; J3010; J3430; J3490; J7030; J7050; J7060; J7120

== ENCOUNTER 2023-10-09 13:40 | Emergency (ER) | payer OTHER ==
[~2023-10-09] VITALS: Ht 160 cm; Wt 74.8 kg
[~2023-10-09 13:40] MED LIST changes: -AMOX-430 PO; -LEVO500T90 PO; -LIDO30AD10 TP
[2023-10-09 13:46] VITALS: BP 106/62; TEMP 98
[2023-10-09] MEDS ORDERED: HYDROCODONE/APAP 5/325MG TABLET ONE (14:22)
[2023-10-09] MEDS ORDERED: HYDROCODONE/APAP 5/325MG TABLET PO ONE (14:30)
[2023-10-09] MEDS ORDERED: KETOROLAC TROMETHAMINE 15 MG/ML VIAL IM ONE (14:30)
[2023-10-09] MEDS ORDERED: HYDR-4303 PO (14:44)
[2023-10-09] MEDS ORDERED: LIDO30AD10 TP (14:44)
[2023-10-09] MEDS ORDERED: IBUP-1955 PO (14:44)
[2023-10-09] MEDS ORDERED: CYCL5TAB PO (14:44)
[2023-10-09 15:02] VITALS: O2SAT 98
[2023-10-09 15:02] LABS: PREGNANCY TEST URINE QUAL NEGATIVE (NEGATIVE)
[2023-10-09] MEDS ORDERED: KETOROLAC TROMETHAMINE 15 MG/ML VIAL ONE (15:05)
== END 2023-10-09 15:20 | disposition home or self-care (01) ==
LOC: ER 13:53
DX: S39.012A Strain of muscle, fascia and tendon of lower back, initial encounter (principal); Z88.8 Allergy status to other drugs, medicaments and biological substances; X58.XXXA Exposure to other specified factors, initial encounter; Y93.89 Activity, other specified; Y92.89 Other specified places as the place of occurrence of the external cause; Y99.8 Other external cause status
CPT/HCPCS: 99283; 96372; 84703; J1885

== ENCOUNTER 2024-07-04 22:55 | Emergency (ER) | payer OTHER ==
[~2024-07-04] VITALS: Ht 162.6 cm; Wt 77.1 kg
[~2024-07-04 22:55] MED LIST changes: +CYCL5TAB PO; +HYDR-4303 PO; +IBUP-1955 PO; +LIDO30AD10 TP
[2024-07-05 00:06] VITALS: BP 122/58; TEMP 98.4
[2024-07-05] MEDS ORDERED: ONDANSETRON 4 MG TAB.RAPDIS ONE (01:35)
[2024-07-05] MEDS ORDERED: MORPHINE SULFATE INJ 2 MG/ML DISP.SYRIN ONE (01:35)
[2024-07-05] MEDS ORDERED: PENI500T PO (01:42)
[2024-07-05] MEDS: ONDANSETRON 4 MG TAB.RAPDIS PO ONE (01:47)
[2024-07-05] MEDS: MORPHINE SULFATE INJ 2 MG/ML DISP.SYRIN IM ONE (01:47)
[2024-07-05 01:53] VITALS: O2SAT 98
== END 2024-07-05 01:55 | disposition home or self-care (01) ==
LOC: ER 23:05
DX: K02.9 Dental caries, unspecified (principal); F17.200 Nicotine dependence, unspecified, uncomplicated; Z95.2 Presence of prosthetic heart valve; Z88.1 Allergy status to other antibiotic agents; Z95.0 Presence of cardiac pacemaker; Z98.890 Other specified postprocedural states
CPT/HCPCS: 99283; 96372; Q0162; J2270